=== PATIENT | male | born 1950 | race Caucasian/White ===

== ENCOUNTER 2020-11-30 08:54 | Outpatient (REF) | payer OTHER, SELFPAY ==
[2020-11-30 09:12] LABS: Hematocrit 43.2 % (42-52); Hemoglobin 14.6 g/dl (14.0-18.0); Mean Corpuscular HGB Conc 33.8 g/dl (31.0-36.0); Mean Corpuscular Volume 100.7 fL (80-98); Mean Platelet Volume 10.4 fL (9.4-12.4); Platelet Count 174 X10*3/uL (160-400); Red Blood Count 4.29 X10*6/uL (4.60-5.80); Red Cell Distribution Width 13.2 % (11.0-16.0); White Blood Count 6.8 X10*3/uL (4.8-10.8)
[2020-11-30 09:51] LABS: Alanine Aminotransferase 38 U/L (0-40); Albumin Level 4.6 g/dL (3.5-5.0); Alkaline Phosphatase 98 U/L (39-117); Anion Gap 13 (12-20); Aspartate Amino Transferase 32 U/L (5-37); Bilirubin Direct 0.2 mg/dL (0.0-0.5); Bilirubin Total 0.5 mg/dL (0.0-1.0); Blood Urea Nitrogen 24 mg/dL (9-16); C Reactive Protein 0.21 mg/dL (< or = 0.50); Calcium 9.5 mg/dL (8.4-10.2); Carbon Dioxide 29 mmol/L (22-29); Chloride 104 mmol/L (96-108); Cholesterol 170 mg/dL; Estimated Glomerular Filt Rate > 60; Glucose Random 108 mg/dL (60-115); HDL Cholesterol 61 mg/dL; LDL Cholesterol Calculated 94 mg/dl; Sodium 141 mmol/L (135-145); Total Protein 6.6 g/dL (6.5-8.0); Triglycerides 77 mg/dL
[2020-11-30 10:11] LABS: Thyroid Stimulating Hormone 2.53 uIU/mL (0.32-4.0)
[2020-11-30 10:14] LABS: Folate 9.6 ng/mL (> or = 4.0); Vitamin B12 437 pg/mL (200-900)
[2020-11-30 11:23] LABS: Glucose Urine UA NEG (NEG); Leukocyte Esterase Urine NEG (NEG); Nitrite Urine NEG (NEG); Specific Gravity - Urine 1.025 (1.005-1.025); Urine Blood NEG (NEG); Urine Ketones NEG (NEG); Urine Protein NEG (NEG-TRACE)
[2020-11-30 11:25] LABS: Appearance Urine CLEAR; Color Urine YELLOW
[2020-12-04 13:17] LABS: Vitamin D 25-OH, D2 <4 ng/mL; Vitamin D 25-OH, D3 54 ng/mL; Vitamin D 25-OH, Total 54 ng/mL (30-100)
== END 2020-11-30 08:55 | disposition home or self-care (01) ==
LOC: HO.LNP 08:54
PROVIDERS: Visit Provider Internal Medicine
DX: E78.01 Familial hypercholesterolemia (principal)
CPT/HCPCS: 80048; 80061; 80076; 81003; 82306; 82550; 82607; 82746; 84443; 85027; 86140

== ENCOUNTER 2020-12-23 07:45 | Outpatient (REF) | payer OTHER, SELFPAY ==
[2020-12-23 08:03] LABS: COVID-19 Test Negative (Negative)
== END 2020-12-23 07:46 | disposition home or self-care (01) ==
LOC: HO.EMPCOV 07:45
PROVIDERS: PCP Internal Medicine; Visit Provider Internal Medicine
DX: Z20.822 Contact with and (suspected) exposure to COVID-19 (principal)
CPT/HCPCS: 36415; 87635; C9803

== ENCOUNTER 2021-04-06 07:31 | Outpatient (REF) | payer OTHER, SELFPAY ==
[2021-04-06 07:50] LABS: COVID-19 Test Negative (Negative)
== END 2021-04-06 07:32 | disposition home or self-care (01) ==
LOC: HO.EMPCOV 07:31
PROVIDERS: Internal Medicine; Visit Provider Internal Medicine
DX: Z20.822 Contact with and (suspected) exposure to COVID-19 (principal)
CPT/HCPCS: 36415; 87635; C9803

== ENCOUNTER 2021-12-08 07:08 | Outpatient (REF) | payer OTHER, SELFPAY ==
[2021-12-08 07:39] LABS: Hematocrit 42.7 % (42.0-52.0); Mean Corpuscular HGB Conc 32.8 g/dl (31.0-36.0); Mean Corpuscular Hemoglobin 34.1 pg (27.0-33.0); Mean Corpuscular Volume 103.9 fL (80.0-98.0); Mean Platelet Volume 10.4 fL (9.4-12.4); Platelet Count 178 X10*3/uL (160-400); Red Blood Count 4.11 X10*6/uL (4.60-5.80); Red Cell Distribution Width 13.9 % (11.0-16.0); White Blood Count 6.3 X10*3/uL (4.8-10.8)
[2021-12-08 08:10] LABS: Alanine Aminotransferase 29 U/L (0-40); Albumin Level 4.3 g/dL (3.5-5.0); Alkaline Phosphatase 91 U/L (39-117); Anion Gap 11 (12-20); Aspartate Amino Transferase 27 U/L (5-37); Bilirubin Direct 0.2 mg/dL (0.0-0.5); Bilirubin Total 0.7 mg/dL (0.0-1.0); Blood Urea Nitrogen 29 mg/dL (9-16); C Reactive Protein 0.08 mg/dL (< or = 0.50); Calcium 9.9 mg/dL (8.4-10.2); Carbon Dioxide 28 mmol/L (22-29); Chloride 108 mmol/L (96-108); Cholesterol 204 mg/dL; Estimated Glomerular Filt Rate 52; Glucose Random 108 mg/dL (60-115); HDL Cholesterol 56 mg/dL; LDL Cholesterol Calculated 128 mg/dl; Potassium 4.4 mmol/L (3.3-5.1); Sodium 143 mmol/L (135-145); Total Protein 6.4 g/dL (6.5-8.0); Triglycerides 102 mg/dL
[2021-12-08 08:30] LABS: Prostate Specific Antigen Scr 1.27 ng/mL (<0.05-4.0); Thyroid Stimulating Hormone 1.95 uIU/mL (0.32-4.0)
[2021-12-08 08:41] LABS: Folate 11.4 ng/mL (> or = 4.0); Vitamin B12 369 pg/mL (200-900)
[2021-12-08 12:43] LABS: Appearance Urine CLEAR; Color Urine YELLOW; Glucose Urine UA NEG (NEG); Leukocyte Esterase Urine NEG (NEG); Nitrite Urine NEG (NEG); PH 5.5 (5.0-8.0); Specific Gravity - Urine >= 1.030 (1.005-1.025); Urine Blood NEG (NEG); Urine Ketones NEG (NEG); Urine Protein NEG (NEG-TRACE)
[2021-12-12 16:17] LABS: Vitamin D 25-OH, D2 <4 ng/mL; Vitamin D 25-OH, D3 42 ng/mL; Vitamin D 25-OH, Total 42 ng/mL (30-100)
== END 2021-12-08 07:09 | disposition home or self-care (01) ==
LOC: HO.LAB 07:08
PROVIDERS: PCP Internal Medicine; Visit Provider Internal Medicine
DX: E55.9 Vitamin D deficiency, unspecified (principal); E78.01 Familial hypercholesterolemia; I70.90 Unspecified atherosclerosis; I10 Essential (primary) hypertension
CPT/HCPCS: 36415; 80048; 80061; 80076; 81003; 82306; 82550; 82607; 82746; 84153; 84443; 85027; 86140

== ENCOUNTER 2022-07-05 10:25 | Outpatient (REF) | payer OTHER, BC, SELFPAY ==
[2022-07-05 11:05] LABS: Hematocrit 42.1 % (42.0-52.0); Hemoglobin 14.3 g/dl (14.0-18.0); Mean Corpuscular Hemoglobin 34.5 pg (27.0-33.0); Mean Corpuscular Volume 101.4 fL (80.0-98.0); Mean Platelet Volume 10.1 fL (9.4-12.4); Platelet Count 167 X10*3/uL (160-400); Red Blood Count 4.15 X10*6/uL (4.60-5.80); Red Cell Distribution Width 13.3 % (11.0-16.0); White Blood Count 6.1 X10*3/uL (4.8-10.8)
[2022-07-05 11:24] LABS: Alanine Aminotransferase 39 U/L (0-40); Albumin Level 4.5 g/dL (3.5-5.0); Alkaline Phosphatase 93 U/L (39-117); Anion Gap 15 (12-20); Aspartate Amino Transferase 34 U/L (5-37); Bilirubin Direct 0.3 mg/dL (0.0-0.5); Bilirubin Total 0.6 mg/dL (0.0-1.0); Blood Urea Nitrogen 17 mg/dL (9-16); Calcium 9.5 mg/dL (8.4-10.2); Carbon Dioxide 27 mmol/L (22-29); Chloride 101 mmol/L (96-108); Cholesterol 178 mg/dL; Estimated Glomerular Filt Rate > 60; Glucose Random 99 mg/dL (60-115); HDL Cholesterol 58 mg/dL; LDL Cholesterol Calculated 98 mg/dl; Potassium 4.6 mmol/L (3.3-5.1); Sodium 138 mmol/L (135-145); Total Protein 6.6 g/dL (6.5-8.0); Triglycerides 113 mg/dL
[2022-07-05 11:45] LABS: Thyroid Stimulating Hormone 1.22 uIU/mL (0.32-4.0)
[2022-07-05 12:05] LABS: Folate 12.4 ng/mL (> or = 4.0); Vitamin B12 1468 pg/mL (200-900)
== END 2022-07-05 10:26 | disposition home or self-care (01) ==
LOC: HO.LAB 10:25
PROVIDERS: PCP Internal Medicine; Visit Provider Internal Medicine
DX: Z01.818 Encounter for other preprocedural examination (principal)
CPT/HCPCS: 36415; 80048; 80061; 80076; 82607; 82746; 84443; 85027

== ENCOUNTER 2022-09-06 10:27 | Outpatient (REF) | payer OTHER, BC, SELFPAY | END 2022-09-06 10:28 | disposition home or self-care (01) | LOC: HO.HAP 10:27 | PROVIDERS: Visit Provider Internal Medicine | DX: Z13.89 Encounter for screening for other disorder (principal) ==

== ENCOUNTER 2022-09-08 09:35 | Outpatient (REF) | payer OTHER, BC, SELFPAY ==
--- NOTE | 2022-09-08 10:17 | MHC.AU.HFU ---
Hearing Instrument Follow-Up- Binaural Date of Visit: 09/08/22 Right Ear: Santos Judd V90-M SN: [id number] Color: Silver De León Repair Warranty: 08/22/2018 Battery Size: 312 Pulp Grinder And Blender: Size 2 slim tube Type of Mold: Large Open Dome Dispensed By: [facility] Date of Fittin06/01/2015 Left Ear:Santos Judd V90-M SN: [id number] Color: Silver De León Repair Warranty: 08/22/2018 Battery Size: 312 Pulp Grinder And Blender: Size 2 slim tube Type of Mold: Large Open Dome Dispensed By: [facility] Date of Fittin06/01/2015 Follow-Up Summary: Shashank dropped off his right hearing aid as the slim tube had broken. His hearing aid was cleaned and microphones were vacuumed. The slim tube and dome were replaced. A listening check demonstrated the hearing aid is in good working order. Recommendations: Hearing instrument maintenance in 6 months, or sooner if needed. Please contact our clinic with any questions or concerns. Diagnosis Code(s): Primary Diagnosis: H90.3 Bilateral Sensorineural Hearing Loss Signature: Provider: Kavin Olson, [facility]
== END 2022-09-08 09:36 | disposition home or self-care (01) ==
LOC: HO.HAP 09:35
PROVIDERS: Visit Provider Internal Medicine
DX: Z13.89 Encounter for screening for other disorder (principal)

== ENCOUNTER → 2022-09-19 08:28 | Outpatient (BNVA) | payer OTHER, BC, SELFPAY | PROVIDERS: PCP Internal Medicine; Referring Provider Internal Medicine; Visit Provider Internal Medicine Cardiovascular Disease | DX: I47.29 Other ventricular tachycardia (principal); Z95.2 Presence of prosthetic heart valve | CPT/HCPCS: 93005 ==

== ENCOUNTER → 2022-10-02 07:23 | Outpatient (REF) | payer OTHER, BC, SELFPAY ==
--- NOTE | 2022-10-02 07:31 | CA_ITS ---
Transthoracic Echocardiogram Patient (Last, First, Middle): Shashank Gruber M Gender: Male Date of : 1950 Age: 72 Procedure Date: 10/02/2022 Procedure Type: Transthoracic Echocardiogram Location: OP Height: 170.18 cm Weight: 92.53 kg BSA: 2.04 m2 Heart Rate: 45 bpm BP: 130 / 80 mmHg Family Support Specialist: BALJIT Referring MD: Ad Gallardo MD Educational Psychologist: Ad Gallardo MD Symptoms: Z95.2 - Presence of prosthetic heart valve Study Quality: Fair/Contrast ECG Rhythm: Bradycardia Conclusions: - 1. Normal LV systolic function with grade 2 diastolic dysfunction 2. Mildly dilated left atrium 3. Normally function bioprosthetic aortic valve with trivial aortic regurgitation 4. Atrial septal closure device noted without any evidence of shunting 5. Normal RV systolic pressure 6. No gross pericardial effusion Findings Procedure Information Contrast agent, definity, is being given per protocol without apparent complications. Left Ventricle Normal left ventricular size, thickness, and systolic function. The visually estimated ejection fraction is between 60-65%. There is paradoxical septal motion consistent with post-operative status. Spectral Doppler is indicative of a pseudonormal filling pattern. E/E prime ratio is >15, consistent with elevated filling pressures. Evidence suggests grade II (moderate) diastolic dysfunction. Right Ventricle Mildly increased right ventricular cavity size. There is moderately decreased right ventricular systolic function. There is a pacemaker wire seen in the right ventricle. Atria The left atrium is mildly dilated. There is no evidence of interatrial shunt. An atrial septal closure device is seen. The right atrium is mildly dilated. Aortic Valve A bioprosthetic aortic valve is present. The prosthetic aortic valve appears to be functioning normally. The aortic valve was not well visualized. The mean gradient is 5 mmHg. There is trace (trivial) aortic valve regurgitation. Mitral Valve There is mild anterior and posterior mitral leaflet thickening. There is trace mitral valve regurgitation. There is no mitral valve stenosis. Pulmonic Valve The pulmonic valve was not well visualized. Tricuspid Valve Likely normal tricuspid valve structure and function. There is trace tricuspid valve regurgitation. The right ventricular systolic pressure is normal. The right ventricular systolic pressure is 24 mmHg. Normal right atrial pressure. There is no evidence of pulmonary hypertension. Great Vessels All visible segments of the aorta are normal in size. The pulmonary artery was not well visualized. Venous The inferior vena cava is normal in size and collapses greater than 50% with inspiration. Pericardium/Pleural There is no evidence of pericardial effusion. Prior Study Comparison Changes noted compared to prior study dated: 10/04/2017. Atrial septal closure device noted Measurements 2D Linear Measurements IVSd: 1.03 0.6-0.9/0.6-1.0 cm LVIDd: 5.07 3.9-5.3/4.2-5.9 cm LVIDd Index: 2.49 2.4-3.2/2.2-3.1 cm/m2 LVIDs: 2.76 2.0-3.6 cm LVPWd: 1.00 0.7-1.1 cm LA Diam: 3.90 2.7-3.8/3.0-4.0 cm LAIDs Index: 1.91 1.5-2.3 cm/m2 LV Mass: 236.69 67-162/88-224 g LV Mass Index: 116.02 43-95/49-115 g/m2 LVOT Diam: 2.10 3.0+(-)1.3 cm 2D Systolic Function EF 4C: 61.10 >55% EF 2C: 70.90 >55% EF BiP: 65.00 >55% Mitral Valve MV Pk E: 1.13 MV PK A: 0.98 MV Decel Time: 309.00 E/A: 1.20 E'Lateral: 6.53 E'Medial: 6.53 E/E' Med: 17.30 E/E' Lat: 17.30 PHT: 91.00 MVA PHT: 2.42 Decel [place]: 3.66 Aortic Valve AoV Pk Kailash: 1.60 AoV Mn Kailash: 1.04 AoV VTI: 0.36 AoV Pk Grad: 10.00 Aov Mn Grad: 5.00 RIOS Cont.VTI: 1.90 LVOT LVOT Pk Kailash: 0.88 LVOT Mn Kailash: 0.58 LVOT VTI: 0.20 LVOT Pk Grad: 3.00 LVOT Mn Grad: 2.00 LVOT Diam: 2.10 LVOT Area: 3.46 Diastolic Function MV Pk E: 1.13 MV Pk A: 0.98 E/A: 1.20 E'Medial: 6.53 E/E' Med: 17.30 E' Laterial: 6.53 E/E' Lat: 17.30 Right Ventricle TAPSE (mm): 13.20 TVS' Kailash: 6.40 Tricuspid Valve TR Pk Kailash: 2.01 TR Pk Grad: 16.00 RA Press: 8.00 RVSP: 24.00 Great Vessels Aorta Sinus of Valsalva: 3.40 2.0-3.5 cm Ao Asc: 3.10 2.1-3.4 cm Pulmonary Valve PV Pk Kailash: 1.05 Peak PV Grad: 4.00 Updated in Other Vendor System with Status of Final Ad Gallardo MD electronically signed on 10/02/2022 4:58:14 PM with status of Final
== END ==
LOC: HO.CARD 07:23
PROVIDERS: PCP Internal Medicine; Visit Provider Internal Medicine Cardiovascular Disease
DX: Z95.2 Presence of prosthetic heart valve (principal)
CPT/HCPCS: 93306; Q9957

== ENCOUNTER 2023-07-24 10:30 | Outpatient (REF) | payer OTHER, BC, SELFPAY ==
--- NOTE | ~2023-07-24 | US_ITS ---
EXAMINATION: US EXTRACRANIAL CAROTID DUPLEX, BILATERAL CLINICAL INFORMATION: TIA COMPARISON: Carotid duplex on 05/27/2018 TECHNIQUE: Real-time ultrasound and Doppler techniques (integrating B-mode 2-D vascular images, Doppler spectral analysis and color-flow Doppler imaging) were utilized to interrogate the extracranial carotid arteries, the vertebral arteries and proximal subclavian arteries bilaterally. The degree of stenosis is determined by criteria similar to NASCET. FINDINGS: Right Side: 1. There is minimal atherosclerotic plaque seen in the bifurcation/proximal ICA region. 2. The common carotid artery PSV proximally is 57 cm/s and distally 65 cm/s. 3. The proximal internal carotid artery velocities are 68 cm/s systolic and 18 cm/s diastolic. 4. The proximal external carotid artery PSV is 60 cm/s. 5. The vertebral artery shows antegrade flow. 6. The subclavian artery waveforms are normal. Left Side: 1. There is no significant atherosclerotic plaque seen in the bifurcation/proximal ICA region. 2. The common carotid artery PSV proximally is 89 cm/s and distally 58 cm/s. 3. The proximal internal carotid artery velocities are 90 cm/s systolic and 32 cm/s diastolic. 4. The proximal external carotid artery PSV is 48 cm/s. 5. The vertebral artery shows antegrade flow. 6. The subclavian artery waveforms are normal. US/US carotid duplex BI IMPRESSION: 1. RIGHT: Minimal, non-hemodynamically significant stenosis of the proximal right internal carotid artery corresponding to a 0-49% stenosis by velocity criteria. 2. LEFT: Normal left internal carotid artery without atherosclerotic plaque or hemodynamically significant stenosis. 3. There is no change in the category severity of disease when compared to the previous study dated 05/27/2018.
== END 2023-07-24 10:31 | disposition home or self-care (01) ==
LOC: HO.US 10:30
PROVIDERS: Visit Provider Psychiatry & Neurology Neurology
DX: Z86.73 Personal history of transient ischemic attack (TIA), and cerebral infarction without residual deficits (principal)
CPT/HCPCS: 93880

== ENCOUNTER 2023-07-27 | Outpatient (REF) | payer OTHER, BC, SELFPAY ==
[2023-07-27 10:51] VITALS: BP 175/84; PULSE 47; RESP 16; TEMP 36.1; O2SAT 100
[2023-07-27 10:53] VITALS: BMI 32.1
[2023-07-27 11:50] VITALS: BP 162/78
[2023-07-27 11:54] VITALS: BP 161/74; PULSE 44; RESP 16; O2SAT 99
--- NOTE | 2023-07-27 14:41 | P.BOP_ITS ---
Brief Operative Note Date of Service: 07/27/23 Pre-op diagnosis: TIA Post-op diagnosis: same Procedure: Implantable loop recorder placement Implants: After obtaining informed consent patient was brought to the minor surgery suite. Patient was then laid on the table in the supine position. Patient's precordial area was then prepped and draped in a sterile fashion. Patient was then given 1% lidocaine with epinephrine intradermally and subcutaneously. A [employer] implantable loop recorder serial number [id number] was then implanted in the subcutaneous space using a Seldinger technique. Initial R-wave were noted to be very 0.07/0.08 although R-waves were very prominent with identified P-waves. Subsequently after couple of min is the R-waves did improve 0.13 and some to 0.26. Probably effect of the local lidocaine. Sensitive was readjusted. Minimal bleeding was noted. The wound was then closed with Steri- Strips and pressure dressing applied. Surgeon: Ad Gallardo MD Anesthesia: local Was an Green Building Design Specialist used for this Procedure?: No Estimated blood loss (mL): 1 Pathology: none sent Condition: stable Disposition: same day
== END 2023-07-27 00:01 | disposition home or self-care (01) ==
LOC: HO.MS
PROVIDERS: PCP Internal Medicine; Visit Provider Internal Medicine Cardiovascular Disease
PROC: (CPT 33285; principal; 2023-07-27 11:00)
DX: G45.9 Transient cerebral ischemic attack, unspecified (principal)
CPT/HCPCS: 33285; C1764

== ENCOUNTER → 2023-07-27 11:00 | Outpatient (BNV) | payer OTHER, BC, SELFPAY | PROVIDERS: PCP Internal Medicine; Visit Provider Internal Medicine Cardiovascular Disease | DX: G45.9 Transient cerebral ischemic attack, unspecified (principal) | CPT/HCPCS: 33285 ==

== ENCOUNTER 2023-07-31 08:18 | Outpatient (REF) | payer OTHER, BC, SELFPAY ==
[2023-07-31 09:23] LABS: Anion Gap 15 (12-20); Blood Urea Nitrogen 21 mg/dL (9-16); Calcium 10.2 mg/dL (8.4-10.2); Carbon Dioxide 25 mmol/L (22-29); Chloride 106 mmol/L (96-108); Cholesterol 169 mg/dL (<200); Estimated Glomerular Filt Rate 59; Glucose Fasting 92 mg/dL (60-99); HDL Cholesterol 54 mg/dL (>40); LDL Cholesterol Calculated 95 mg/dL (<100); Potassium 4.6 mmol/L (3.3-5.1); Sodium 141 mmol/L (135-145); Triglycerides 101 mg/dL (<150); Uric Acid 4.8 mg/dL (3.4-7.0)
[2023-07-31 09:34] LABS: TSH reflex Free T4 1.46 uIU/mL (0.32-4.0)
== END 2023-07-31 08:19 | disposition home or self-care (01) ==
LOC: HO.LAB 08:18
PROVIDERS: Visit Provider Internal Medicine
DX: M10.9 Gout, unspecified (principal); E89.0 Postprocedural hypothyroidism; I10 Essential (primary) hypertension; I25.10 Atherosclerotic heart disease of native coronary artery without angina pectoris; I70.90 Unspecified atherosclerosis
CPT/HCPCS: 36415; 80048; 80061; 84443; 84550

== ENCOUNTER 2023-08-02 15:45 | Outpatient (AMB) | payer OTHER, BC, SELFPAY ==
[2023-08-02 15:53] VITALS: BP 100/62; PULSE 51; BMI 31.4
--- NOTE | 2023-08-02 15:53 | MHC.OFFVIS ---
Intake Vital Signs 08/02/23 15:53 Height 5 ft 7 in Weight 200 lb 9.93 oz BMI 31.4 BP 100/62 Blood Pressure Location Lt brachial Position Sitting Pulse 51 Intake Visit Reasons: wound check after ILR Medtronic Intake Note: Follow-up Ilr Medtronic feeling good Edger Tailer Required: No Allergies Iodinated Contrast Media [IV Dye, Iodine Containing] Allergy (Severe, Verified 07/05/22 09:43) VASCULAR COLLAPSE and vascular spasm atorvastatin [ATORVASTATIN] Allergy (Unknown, Verified 07/05/22 09:43) VISUAL HALOS simvastatin [SIMVASTATIN] Allergy (Unknown, Verified 07/05/22 09:43) MYALGIA vancomycin [VANCOMYCIN] Allergy (Unknown, Verified 07/05/22 09:43) itching, rash and hives Medication List - Last Reconciled 08/02/23 by ANYA BergerC allopurinol 300 mg PO DAILY amoxicillin 500 mg PO TID aspirin 81 mg PO DAILY cholecalciferol (vitamin D3) 25 mcg PO DAILY dorzolamide-timolol 22.3-6.8 mg/mL 1 drp ophthalmic (eye) BID ezetimibe (Zetia) 10 mg PO DAILY latanoprost 0.005% 1 drp ophthalmic (eye) BEDTIME levothyroxine PO; metoprolol succinate ER 100 mg PO BID rosuvastatin 10 mg PO DAILY ticagrelor (Brilinta) 60 mg PO BID valsartan-hydrochlorothiazide 160-12.5 mg 1 tab PO DAILY vitamin J90-yttuc acid 1,000-400 mcg tabs sublingual HPI wound check after ILR Medtronic HPI Thalia Encarnacion is a 73-year-old male with past medical history of hypertension, bicuspid aortic valve status post AVR, ascending aorta replacement, PFO closure, Saint Shan single-chamber pacemaker who recently had an episode of decreased vision in his right eye. He underwent implanted loop recorder on 07/27/2023 to assess for AFib. He now presents for wound check. Today he reports he has been feeling well without any recurrent visual disturbances. He has no neurological concerns. ILR site has original dressing intact. Ecchymosis is noted around dressing edges. No significant discomfort or fevers reported. Remote monitor at bedside. Denies issues with chest discomfort, shortness of breath. Has generally good activity tolerance. Taking all meds as directed [facility] Medical History AV block Hypertension Surgical History History of aortic valve replacement History of appendectomy History of basal cell carcinoma excision History of permanent cardiac pacemaker placement History of thyroidectomy Status post ascending aortic replacement Status post percutaneous patent foramen ovale closure Social History Housing: House Alcohol intake: current Alcohol intake frequency: 0-2 drinks per day Patient Tobacco Use Status: Never used Tobacco e-Cigarette/Vaping Use: Never Used Second Hand Smoke Exposure: No service: No 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 occupational status: employed and 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 needs: No Hearing needs: Yes (hearind aides) Vision needs: Yes (glasses) Review of Systems Const All systems reviewed & are unremarkable except as noted in HPI and below Denies chills, Denies fatigue, Denies fever(s), Denies frequent falls, Denies weakness, Denies weight gain and Denies weight loss ENT Denies dizziness Card Denies chest pain, Denies leg edema, Denies lightheadedness, Denies palpitations, Denies dyspnea, Denies dyspnea on exertion, Denies orthopnea and Denies other (loss of consciousness) Resp Denies cough, Denies dyspnea and Denies dyspnea on exertion GI Denies hematochezia and Denies change in stool character Musc Denies abnormal gait, Denies muscle weakness, Denies numbness, Denies radiating pain into limb and Denies tingling Neuro Denies abnormal gait, Denies dizziness, Denies frequent falls, Denies numbness, Denies tingling and Denies weakness Endo Denies fatigue and Denies palpitations Physical Exam Vital Signs: Last Vital Signs Pulse 51 08/02/23 15:53 BP 100/62 08/02/23 15:53 BMI result Body Mass Index 31.4 Const General: cooperative, healthy appearing, comfortable, well developed, alert and awake Chest Other: ILR site with gauze dressing covered by Tegaderm. Gently removed. Steri-Strips present with dried blood underneath. Soaked with sterile saline and gently removed Steri-Strips. Small incision line fully intact, resolving ecchymosis noted distal to site. No drainage or inflammation noted. Chest palpation & inspection: normal inspection of the chest Resp Effort & Inspection: normal respiratory effort and able to speak in complete sentences Assessment & Plan Assessment & Plan (1) Implantable loop recorder present: Code(s): Z95.818 - Presence of other cardiac implants and grafts Plan: Possible TIA with recent episode of decreased vision in the right eye only lasting a few minutes and resolving. No other neurological deficits noted. No recurrent visual disturbances since that time. Possible TIA. He underwent a implanted Stewart loop recorder placement on with Dr. Gallardo. Dressing removed from site, Steri-Strips gently removed. Incision well approximated no signs of infection. Single Steri-Strips reapplied for wound security. Site care reviewed. Remote monitor at his bedside. Will follow his loop recorder remotely to assess for arrhythmia, AFib. (2) Visit for wound check: Code(s): Z51.89 - Encounter for other specified aftercare (3) Change in vision: Code(s): H53.9 - Unspecified visual disturbance (4) Cardiac pacemaker: Code(s): Z95.0 - Presence of cardiac pacemaker Plan: Saint Shan single-chamber pacemaker. VVI mode, low rate 40. Office interrogation done September 2022. Next office interrogation due September 2023. (5) History of aortic valve replacement: Comment: Aortic stenosis secondary to bicuspid aortic valve undergoing repair at age 14 at [facility]. Followed by in 1990 undergoing Saint Shan 23 mm aortic valve replacement at [facility] for stenosis. Surgery was complicated at that time with RV laceration, which had to be repaired. 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 Gallardo his primary hardware installer. He has office visit scheduled 09/20/2023. Will have him keep that appointment. (6) Status post ascending aortic replacement: Comment: Status post repair with a 28 mm graft for thoracic aortic aneurysm. 4.5 cm, repaired in 2013 Code(s): Z95.828 - Presence of other vascular implants and grafts Medications: Changed From rosuvastatin 20 mg PO DAILY 90 tabs 3RF To rosuvastatin 10 mg PO DAILY Coding Level of Care Code Est Pt Level 2 (52273) Diagnoses Implantable loop recorder present Z95.818 Visit for wound check Z51.89 Change in vision H53.9 Cardiac pacemaker Z95.0 History of aortic valve replacement Z95.2 Status post ascending aortic replacement Z95.828 Time Spent (min) 15
== END 2023-08-02 16:48 | disposition home or self-care (01) ==
PROVIDERS: PCP Internal Medicine; Visit Provider Nurse Practitioner Family
DX: Z95.818 Presence of other cardiac implants and grafts (principal); Z51.89 Encounter for other specified aftercare; H53.9 Unspecified visual disturbance; Z95.0 Presence of cardiac pacemaker; Z95.2 Presence of prosthetic heart valve; Z95.828 Presence of other vascular implants and grafts
CPT/HCPCS: 99212

== ENCOUNTER → 2023-08-02 15:45 | Outpatient (BNVA) | payer OTHER, BC, SELFPAY | PROVIDERS: PCP Internal Medicine; Visit Provider Nurse Practitioner Family ==

== ENCOUNTER → 2023-08-31 23:59 | Outpatient (BNV) | payer OTHER, BC, SELFPAY ==
--- NOTE | 2023-09-10 08:41 | MHC.OFFVIS ---
Intake Intake Visit Reasons: Remote ILR Check- Medtronic Allergies Iodinated Contrast Media [IV Dye, Iodine Containing] Allergy (Severe, Verified 07/05/22 09:43) VASCULAR COLLAPSE and vascular spasm atorvastatin [ATORVASTATIN] Allergy (Unknown, Verified 07/05/22 09:43) VISUAL HALOS simvastatin [SIMVASTATIN] Allergy (Unknown, Verified 07/05/22 09:43) MYALGIA vancomycin [VANCOMYCIN] Allergy (Unknown, Verified 07/05/22 09:43) itching, rash and hives [facility] Medical History AV block Hypertension Surgical History History of aortic valve replacement History of appendectomy History of basal cell carcinoma excision History of permanent cardiac pacemaker placement History of thyroidectomy Status post ascending aortic replacement Status post percutaneous patent foramen ovale closure Social History Housing: House Alcohol intake: current Alcohol intake frequency: 0-2 drinks per day Patient Tobacco Use Status: Never used Tobacco e-Cigarette/Vaping Use: Never Used Second Hand Smoke Exposure: No service: No 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 There were reported pause that appear to be artifactual. The presented strip shows normal sinus rhythm. There is no evidence of atrial fibrillation [id number] Cardiac Interrogation, subcut cardiac rhythm monitor Procedure code (CPT) selection complete Coding Level of Care Code Procedure Only CPT Codes Cardiac Device Check - Cardiac Device 16: [id number] Cardiac Interrogation, subcut cardiac rhythm monitor ([id number])
== END ==
PROVIDERS: PCP Internal Medicine; Visit Provider Internal Medicine Cardiovascular Disease
DX: I48.91 Unspecified atrial fibrillation (principal)
CPT/HCPCS: 93298

== ENCOUNTER 2023-09-18 10:21 | Outpatient (REF) | payer OTHER, BC, SELFPAY ==
[2023-09-18 11:27] LABS: Hematocrit 42.1 % (42.0-52.0); Hemoglobin 13.8 g/dl (14.0-18.0); Mean Corpuscular HGB Conc 32.8 g/dl (31.0-36.0); Mean Corpuscular Hemoglobin 33.5 pg (27.0-33.0); Mean Corpuscular Volume 102.2 fL (80.0-98.0); Mean Platelet Volume 10.8 fL (9.4-12.4); Platelet Count 209 X10*3/uL (160-400); Red Blood Count 4.12 X10*6/uL (4.60-5.80); Red Cell Distribution Width 13.2 % (11.0-16.0); White Blood Count 7.8 X10*3/uL (4.8-10.8)
[2023-09-18 12:02] LABS: Cholesterol 123 mg/dL (<200); HDL Cholesterol 44 mg/dL (>40); LDL Cholesterol Calculated 63 mg/dL (<100); Triglycerides 82 mg/dL (<150)
[2023-09-18 12:05] LABS: Erythrocyte Sedimentation Rate 13 MM/HR (0-15)
[2023-09-20 16:08] LABS: CRP High Sensitivity 0.5 mg/L
== END 2023-09-18 10:22 | disposition home or self-care (01) ==
LOC: HO.LAB 10:21
PROVIDERS: PCP Internal Medicine; Visit Provider Internal Medicine
DX: D75.89 Other specified diseases of blood and blood-forming organs (principal); E78.00 Pure hypercholesterolemia, unspecified
CPT/HCPCS: 36415; 80061; 85027; 85652; 86141

== ENCOUNTER 2023-09-20 08:14 | Outpatient (AMB) | payer BC, SELFPAY ==
[2023-09-20 08:20] VITALS: BP 120/82; PULSE 52; BMI 31.1
--- NOTE | 2023-09-20 08:20 | A.OFFVIS_ITS ---
Intake Vital Signs 09/20/23 08:20 Height 5 ft 7 in Weight 198 lb 6.656 oz BMI 31.1 BP 120/82 Blood Pressure Location Lt brachial Position Sitting Pulse 52 Intake Visit Reasons: 1 yr f/up Intake Note: 1 year follow-up with ekg and medtronic check and st shan check feeling good Selling Underwriter Required: No Allergies Iodinated Contrast Media [IV Dye, Iodine Containing] Allergy (Severe, Verified 07/05/22 09:43) VASCULAR COLLAPSE and vascular spasm atorvastatin [ATORVASTATIN] Allergy (Unknown, Verified 07/05/22 09:43) VISUAL HALOS simvastatin [SIMVASTATIN] Allergy (Unknown, Verified 07/05/22 09:43) MYALGIA vancomycin [VANCOMYCIN] Allergy (Unknown, Verified 07/05/22 09:43) itching, rash and hives Medication List - Last Reconciled 09/20/23 by Ad Gallardo MD allopurinol 300 mg PO DAILY amoxicillin 500 mg PO TID aspirin 81 mg PO DAILY cholecalciferol (vitamin D3) 25 mcg PO DAILY dorzolamide-timolol 22.3-6.8 mg/mL 1 drp ophthalmic (eye) BID ezetimibe (Zetia) 10 mg PO DAILY latanoprost 0.005% 1 drp ophthalmic (eye) BEDTIME levothyroxine PO; metoprolol succinate ER 100 mg PO BID rosuvastatin 10 mg PO DAILY ticagrelor (Brilinta) 60 mg PO BID valsartan-hydrochlorothiazide 160-12.5 mg 1 tab PO DAILY vitamin G49-cywgh acid 1,000-400 mcg tabs sublingual HPI HPI Comments History of Present Illness Details Shashank comes for follow-up. He underwent a Medtronic implantable loop recorder placement for transient visual symptoms. Since then he has seen operator/assistant foreman and there is a suspicion for ophthalmic migraine. He has also seen Neurology. His carotid duplex suggest mild atherosclerotic plaque. Given his diffuse atherosclerotic disease likelihood of aortic atherosclerosis is high as well. There is also likelihood of atrial fibrillation. He has a single- chamber pacer device. He has currently been taking his Brilinta only once a day due to ecchymosis. He had reduces Crestor due to muscle aches but on Zetia his current LDL is well optimized at 63 mg/dL. [facility] Medical History Blindness, sudden AV block Hypertension Surgical History History of basal cell carcinoma excision History of appendectomy History of permanent cardiac pacemaker placement History of thyroidectomy Status post percutaneous patent foramen ovale closure Status post ascending aortic replacement History of aortic valve replacement Social History Housing: House Alcohol intake: current Alcohol intake frequency: 0-2 drinks per day Patient Tobacco Use Status: Never used Tobacco e-Cigarette/Vaping Use: Never Used Second Hand Smoke Exposure: No service: No 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 occupational status: employed and 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 needs: No Hearing needs: Yes (hearind aides) Vision needs: Yes (glasses) Review of Systems Const Denies chills, Denies fatigue, Denies fever(s), Denies frequent falls, Denies weakness, Denies weight gain and Denies weight loss ENT Denies dizziness Card Denies chest pain, Denies leg edema, Denies lightheadedness, Denies palpitations, Denies dyspnea, Denies dyspnea on exertion, Denies orthopnea and Denies other (loss of consciousness) Resp Denies cough, Denies dyspnea and Denies dyspnea on exertion GI Denies hematochezia and Denies change in stool character Musc Denies abnormal gait, Denies muscle weakness, Denies numbness, Denies radiating pain into limb and Denies tingling Neuro Denies abnormal gait, Denies dizziness, Denies frequent falls, Denies numbness, Denies tingling and Denies weakness Endo Denies fatigue and Denies palpitations Physical Exam Vital Signs: Last Vital Signs Pulse 52 09/20/23 08:20 BP 120/82 09/20/23 08:20 BMI result Body Mass Index 31.1 Const General: cooperative, comfortable, no acute distress, alert and awake Nutritional Appearance: obese Orientation/consciousness: patient oriented x3 Limitations: no limitations Neck Neck: Yes trachea midline, Yes supple and Yes no JVD Carotids: normal carotid upstroke and no bruits Resp Effort & Inspection: normal respiratory effort Auscultation: clear to auscultation bilaterally Cardio Jugular venous distension: no JVD Palpation: normal PMI Rate: regular rate Rhythm: regular rhythm Heart sounds: S1 normal heart sound present, S2 normal heart sound present, no click, no gallops and Murmur heart sound present systolic early, decrescendo and crescendo GI Auscultation: normal bowel sounds Skin General skin exam: no rashes or lesions noted Neuro General: patient oriented x3 and no focal motor deficits Extrem General: Yes no clubbing, cyanosis or edema Psych Appearance: grossly normal Office Procedures Cardiac Device Check Cardiac Device Check Details: Medtronic implantable loop recorder in place. Battery status is excellent. Measured R-waves at 0.07 mV although so episodes of atrial fibrillation noted. Presenting telemetry shows good P waves and QRS complex. [id number]-[id number] Device Interrogation, subcut cardiac rhythm monitor Procedure code (CPT) selection complete Cardiac Device Check Cardiac Device Check Details: Single-chamber Saint Shan pacemaker in place. Programmed in VVI at 40 beats per minute. Minimal ventricular pacing. Ventricular pacing thresholds adequate. Ventricular sensing is adequate. Pacing lead impedance is stable. Battery life is excellent at about 12 years [id number]-CE Cardiac Device Check, leadless/single lead pacemaker Procedure code (CPT) selection complete EKG Details: EKG shows sinus bradycardia with right bundle-branch block with QS pattern in lead V1 V2 40416-Ghiumpwaeyjnpcgxt, Complete Assessment & Plan Assessment & Plan (1) Blindness, sudden: Code(s): H53.139 - Sudden visual loss, unspecified eye Plan: Sudden reduction in vision question atherosclerotic worse is cardioembolic. He is currently on dual antiplatelet therapy and importance of taking Brilinta twice a day was discussed. Has the implantable recorder in place with no evidence of atrial fibrillation so far although he is at risk for the same that would change therapy. Continue aggressive risk factor modification, see below. Will continue monitor remotely as well as in the clinic every 6 months. (2) History of aortic valve replacement: Comment: Aortic stenosis secondary to bicuspid aortic valve undergoing repair at age 14 at [facility]. Followed by in 1990 undergoing Saint Shan 23 mm aortic valve replacement at [facility] for stenosis. Surgery was complicated at that time with RV laceration, which had to be repaired. 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 SBE prophylaxis as per ACC/aha guidelines. Will monitor by echocardiogram on annual basis. (3) Cardiac pacemaker: Code(s): Z95.0 - Presence of cardiac pacemaker Plan: Single-chamber cardiac pacemaker in-situ, working well. Patient has minimal use of the pacemaker in the ventricle at this point time. Will continue monitor remotely as well as in the clinic in 6 months time. (4) ASVD (arteriosclerotic vascular disease): Code(s): I70.90 - Unspecified atherosclerosis Plan: Diffuse atherosclerotic disease including carotid disease as well as aortic disease. Currently on dual antiplatelet therapy given his transient visual symptoms. Likely his visual symptoms could be vascular in origin and/or related to ophthalmic migraine. This is unclear. Will continue monitor clinically. Continue dual antiplatelet therapy for a year at least if he has no further events may cut down to aspirin therapy only. Continue aggressive vascular risk factor modification. LDL is finally well optimized on dual therapy and is tolerating current 10 mg of Crestor. Lifestyle modification was discussed. Blood pressure is currently well optimized. He is status post PFO closure. Will follow up in the clinic in 6 months time, sooner p.r.n.. Thank you for allowing me to partake in his care Medications: Changed From rosuvastatin 20 mg PO DAILY 90 tabs 3RF To rosuvastatin 10 mg PO DAILY Coding Level of Care Code Est Pt Level 4 (20646) Diagnoses Blindness, sudden H53.139 History of aortic valve replacement Z95.2 Cardiac pacemaker Z95.0 ASVD (arteriosclerotic vascular disease) I70.90 CPT Codes Cardiac Device Check - Cardiac Device 11: 14267-Kpkcmux Device Interrogation, subcut cardiac rhythm monitor ([id number]) Cardiac Device Check - Cardiac Device 1: 43655-HO Cardiac Device Check, leadless/single lead pacemaker ([id number]) EKG - CPT: 27555-Chfdvvfihvvpjevbn, Complete ([id number])
== END 2023-09-20 08:59 | disposition home or self-care (01) ==
PROVIDERS: Visit Provider Internal Medicine Cardiovascular Disease
DX: H53.139 Sudden visual loss, unspecified eye (principal); I70.90 Unspecified atherosclerosis; I44.30 Unspecified atrioventricular block; Z95.0 Presence of cardiac pacemaker; Z95.2 Presence of prosthetic heart valve
CPT/HCPCS: 93279; 93291; 99214

== ENCOUNTER → 2023-09-20 08:14 | Outpatient (BNVA) | payer BC, SELFPAY | PROVIDERS: Visit Provider Internal Medicine Cardiovascular Disease | DX: I45.10 Unspecified right bundle-branch block (principal); I70.90 Unspecified atherosclerosis; I10 Essential (primary) hypertension; H53.139 Sudden visual loss, unspecified eye; Z95.2 Presence of prosthetic heart valve; Z45.018 Encounter for adjustment and management of other part of cardiac pacemaker | CPT/HCPCS: 93005 ==

== ENCOUNTER → 2023-10-05 23:59 | Outpatient (BNV) | payer OTHER, BC, SELFPAY ==
--- NOTE | 2023-10-05 13:06 | A.OFFVIS_ITS ---
Intake Intake Visit Reasons: Remote ILR Check- Medtronic Allergies Iodinated Contrast Media [IV Dye, Iodine Containing] Allergy (Severe, Verified 07/05/22 09:43) VASCULAR COLLAPSE and vascular spasm atorvastatin [ATORVASTATIN] Allergy (Unknown, Verified 07/05/22 09:43) VISUAL HALOS simvastatin [SIMVASTATIN] Allergy (Unknown, Verified 07/05/22 09:43) MYALGIA vancomycin [VANCOMYCIN] Allergy (Unknown, Verified 07/05/22 09:43) itching, rash and hives [facility] Medical History Blindness, sudden AV block Hypertension Surgical History History of basal cell carcinoma excision History of appendectomy History of permanent cardiac pacemaker placement History of thyroidectomy Status post percutaneous patent foramen ovale closure Status post ascending aortic replacement History of aortic valve replacement Social History Housing: House Alcohol intake: current Alcohol intake frequency: 0-2 drinks per day Patient Tobacco Use Status: Never used Tobacco e-Cigarette/Vaping Use: Never Used Second Hand Smoke Exposure: No service: No 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 No episodes of atrial fibrillation noted [id number] Cardiac Interrogation, subcut cardiac rhythm monitor Procedure code (CPT) selection complete Coding Level of Care Code Procedure Only CPT Codes Cardiac Device Check - Cardiac Device 16: 47167-Uayfda Cardiac Interrogation, subcut cardiac rhythm monitor ([id number])
== END ==
PROVIDERS: PCP Internal Medicine; Visit Provider Internal Medicine Cardiovascular Disease
DX: I44.30 Unspecified atrioventricular block (principal); Z95.818 Presence of other cardiac implants and grafts
CPT/HCPCS: 93298

== ENCOUNTER 2023-10-18 08:11 | Outpatient (AMB) | payer BC, SELFPAY ==
--- NOTE | 2023-10-18 08:16 | MHC.PC.OV ---
Vital Signs 10/18/23 08:17 Height 5 ft 7 in Weight 197 lb BMI 30.9 BP 98/50 L Blood Pressure Location Lt brachial Position Sitting Pulse 54 Pulse Source Pulse Oximeter Pulse Oximetry (%) 99 Oxygen Delivery Method Room Air Intake Visit Reasons: temporary blindness Intake Note: Patient here for raynauds phenomenon, right side low back pain in to the back of right thigh, mild anemia Wine Fermenter Required: No Accompanied by: Self / Same As Patient Allergies Iodinated Contrast Media [IV Dye, Iodine Containing] Allergy (Severe, Verified 10/18/23 12:58) VASCULAR COLLAPSE and vascular spasm atorvastatin [ATORVASTATIN] Allergy (Unknown, Verified 10/18/23 12:58) VISUAL HALOS simvastatin [SIMVASTATIN] Allergy (Unknown, Verified 10/18/23 12:58) MYALGIA vancomycin [VANCOMYCIN] Allergy (Unknown, Verified 10/18/23 12:58) itching, rash and hives Medication List - Last Reconciled 10/18/23 by Anthony Hewitt MD allopurinol 300 mg PO DAILY aspirin 81 mg PO DAILY celecoxib 200 mg PO DAILY cholecalciferol (vitamin D3) 25 mcg PO DAILY dorzolamide-timolol 22.3-6.8 mg/mL 1 drp ophthalmic (eye) BID ezetimibe (Zetia) 10 mg PO DAILY latanoprost 0.005% 1 drp ophthalmic (eye) BEDTIME levothyroxine PO; metoprolol succinate ER 100 mg PO BID rosuvastatin 10 mg PO DAILY ticagrelor (Brilinta) 60 mg PO BID valsartan-hydrochlorothiazide 160-12.5 mg 1 tab PO DAILY vitamin X73-ppwcs acid 1,000-400 mcg tabs sublingual Tobacco use date assessed: 10/18/23 Fall risk assessment: No Falls in past year Last assessed Fall Risk: 10/18/23 Dental Screening Dental Screen Date: 10/18/23 Did you have a dental visit in the last 12 months?: Yes Did you have a dental problem in the last 6 months where you did not have access to dental care?: No Was dental information given to patient?: Patient has dentist HPI temporary blindness HPI Details 73-year-old male presents to the office to discuss his chronic medical conditions. 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 Patient is had transient loss of vision in the right eye. The 1st time it happened was 5 years ago. A JASON showed a patent PFO. The PFO was closed and patient has had no subsequent symptoms till the present 1. The transient loss of vision occurred a month ago and it was brief. Patient was seen by a neurologist who ordered a CTA which was unremarkable. He later saw his grain mill products inspector and has a loop monitor put in. No rhythm disturbance was seen. Patient was put on Brilinta 60 mg twice a day. He is unable to tolerate the twice a day dosage and develops large ecchymosis. He has reduced the medication to once a day. Patient is also started developing symptoms of Raynaud's phenomena. He is experiencing blanching and pain at the tips of his fingers on exposure to cold. Also complaining of nonspecific joint pains. ESR and CRP were low. Patient is also complaining of pain in the area just below the right gluteal area. When he was taking Coumadin many years ago, he had developed a large hematoma in the pyriformis that was compressing the sciatic nerve. [facility] Medical History (Updated 10/18/23 @ 13:12 by Anthony Hewitt MD) Raynauds phenomenon Blindness, sudden AV block Hypertension Surgical History History of surgery History of basal cell carcinoma excision History of appendectomy History of permanent cardiac pacemaker placement History of thyroidectomy Status post percutaneous patent foramen ovale closure Status post ascending aortic replacement History of aortic valve replacement Social History Housing: House Alcohol intake: current Alcohol intake frequency: 0-2 drinks per day Patient Tobacco Use Status: Never used Tobacco e-Cigarette/Vaping Use: Never Used Second Hand Smoke Exposure: No service: No 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 Depression Screening Interpretation: Negative Depression Screening Done: Yes Source: Developed by Drs. Gurjit Ledezma, Sara Christianson, Enrique Solano and colleagues, with an educational diego from [employer]. Thrive Questionnaire Date Thrive assessed: 12/28/21 Currently or been in a relationship where the following occur: no concerns reported WARREN-7 AMB Questionnaire WARREN-7 Date WARREN - 7 assessed: 12/28/21 Source: Developed by Drs. Gurjit Ledezma, Sara Christianson, Enrique Solano and colleagues, with an educational diego from [employer]. Physical exam (Primary Care) Vital Signs: Last Vital Signs Pulse 54 10/18/23 08:17 BP 98/50 L 10/18/23 08:17 Pulse Ox 99 10/18/23 08:17 Oxygen Delivery Method Room Air 10/18/23 08:17 Care Plan Goal for BP management: Low BP noted. BMI result Body Mass Index 30.9 Tobacco/Smoking Status: Tobacco use Status Tobacco use date assessed 10/18/23 10/18/23 08:25 Patient Tobacco Use Status Never used Tobacco 10/18/23 08:25 e-Cigarette/Vaping Use Never Used 10/18/23 08:25 Depression Screening Interpretation: Negative Thrive Assessment: Date of Thrive Assessment Date Thrive assessed 12/28/21 10/18/23 08:25 Currently or been in a relationship where the following occur: no concerns reported Advance Care Planning discussion: Exists, not on file Date of discussion: 10/18/23 Who was present: Patient Forms completed: Health Care Proxy and Living will Const General: cooperative and healthy appearing Nutritional Appearance: well nourished Orientation/consciousness: patient oriented x3 Limitations: no limitations HENMT Head: Yes normal to inspection Eyes General: appearance normal, both eyes and all related structures Neck Neck: Yes normal visual inspection Chest Chest palpation & inspection: normal palpation of entire chest wall Resp Effort & Inspection: normal respiratory effort Neuro General: patient oriented x3 Assessment and Plan Assessment & Plan (1) Hypertension: Code(s): I10 - Essential (primary) hypertension Plan: Will discuss with grain mill products inspector and hold the evening dose of metoprolol. (2) History of aortic valve replacement: Comment: Aortic stenosis secondary to bicuspid aortic valve undergoing repair at age 14 at [facility]. Followed by in 1990 undergoing Saint Shan 23 mm aortic valve replacement at [facility] for stenosis. Surgery was complicated at that time with RV laceration, which had to be repaired. 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 (3) Amaurosis fugax of right eye: Code(s): G45.3 - Amaurosis fugax Plan: Will follow up on the results of the loop recorder. Will discuss with the grain mill products inspector and inform him that patient is taking Brilinta at 60 mg once a day. (4) Familial hypercholesteremia: Code(s): E78.01 - Familial hypercholesterolemia Plan: LDL is in range. Continue current medications. (5) Raynauds phenomenon: Code(s): I73.00 - Raynaud's syndrome without gangrene Plan: Patient is experiencing symptoms consistent with Raynaud's phenomenon. However due to his low blood pressure nifedipine will not be started. I have advised him to avoid exposure to extreme cold. Coding Level of Care Code Est Pt Level 4 (51679) Diagnoses Hypertension I10 History of aortic valve replacement Z95.2 Amaurosis fugax of right eye G45.3 Familial hypercholesteremia E78.01 Raynauds phenomenon I73.00 Additional Codes Vital Signs *Quality* - Advance Care Planning discussion: Exists, not on file ([id number])
[2023-10-18 08:17] VITALS: BP 98/50; PULSE 54; O2SAT 99; BMI 30.9
== END 2023-10-18 09:49 | disposition home or self-care (01) ==
PROVIDERS: PCP Internal Medicine; Visit Provider Internal Medicine
DX: I10 Essential (primary) hypertension (principal); Z95.2 Presence of prosthetic heart valve; G45.3 Amaurosis fugax; E78.01 Familial hypercholesterolemia; I73.00 Raynaud's syndrome without gangrene; Z00.00 Encounter for general adult medical examination without abnormal findings
CPT/HCPCS: 1123F; 99214

== ENCOUNTER → 2023-11-09 23:59 | Outpatient (BNV) | payer BC, SELFPAY ==
--- NOTE | 2023-11-20 08:40 | A.OFFVIS_ITS ---
Intake Intake Visit Reasons: Remote ILR Check- Medtronic Allergies Iodinated Contrast Media [IV Dye, Iodine Containing] Allergy (Severe, Verified 10/18/23 12:58) VASCULAR COLLAPSE and vascular spasm atorvastatin [ATORVASTATIN] Allergy (Unknown, Verified 10/18/23 12:58) VISUAL HALOS simvastatin [SIMVASTATIN] Allergy (Unknown, Verified 10/18/23 12:58) MYALGIA vancomycin [VANCOMYCIN] Allergy (Unknown, Verified 10/18/23 12:58) itching, rash and hives COUNTS INCLUDE 234 BEDS AT THE [facility] Medical History (Updated 10/18/23 @ 13:12 by Anthony Hewitt MD) Raynauds phenomenon Blindness, sudden AV block Hypertension Surgical History History of surgery History of basal cell carcinoma excision History of appendectomy History of permanent cardiac pacemaker placement History of thyroidectomy Status post percutaneous patent foramen ovale closure Status post ascending aortic replacement History of aortic valve replacement Social History Housing: House Alcohol intake: current Alcohol intake frequency: 0-2 drinks per day Patient Tobacco Use Status: Never used Tobacco e-Cigarette/Vaping Use: Never Used Second Hand Smoke Exposure: No service: No 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 No arrhythmias detected [id number] Cardiac Interrogation, subcut cardiac rhythm monitor Procedure code (CPT) selection complete Assessment & Plan Assessment & Plan (1) Implantable loop recorder present: Code(s): Z95.818 - Presence of other cardiac implants and grafts Plan: See above Coding Level of Care Code Procedure Only Diagnoses Implantable loop recorder present Z95.818 CPT Codes Cardiac Device Check - Cardiac Device 16: 48987-Obbuzm Cardiac Interrogation, subcut cardiac rhythm monitor ([id number])
== END ==
PROVIDERS: PCP Internal Medicine; Visit Provider Internal Medicine Cardiovascular Disease
DX: I44.30 Unspecified atrioventricular block (principal); Z95.818 Presence of other cardiac implants and grafts
CPT/HCPCS: 93298

== ENCOUNTER → 2023-12-14 23:59 | Outpatient (BNV) | payer BC, SELFPAY ==
--- NOTE | 2023-12-17 17:55 | A.OFFVIS_ITS ---
Intake Intake Visit Reasons: Remote ILR Check- Medtronic Allergies Iodinated Contrast Media [IV Dye, Iodine Containing] Allergy (Severe, Verified 10/18/23 12:58) VASCULAR COLLAPSE and vascular spasm atorvastatin [ATORVASTATIN] Allergy (Unknown, Verified 10/18/23 12:58) VISUAL HALOS simvastatin [SIMVASTATIN] Allergy (Unknown, Verified 10/18/23 12:58) MYALGIA vancomycin [VANCOMYCIN] Allergy (Unknown, Verified 10/18/23 12:58) itching, rash and hives [facility] Medical History (Updated 10/18/23 @ 13:12 by Anthony Hewitt MD) Raynauds phenomenon Blindness, sudden AV block Hypertension Surgical History History of surgery History of basal cell carcinoma excision History of appendectomy History of permanent cardiac pacemaker placement History of thyroidectomy Status post percutaneous patent foramen ovale closure Status post ascending aortic replacement History of aortic valve replacement Social History Housing: House Alcohol intake: current Alcohol intake frequency: 0-2 drinks per day Patient Tobacco Use Status: Never used Tobacco e-Cigarette/Vaping Use: Never Used Second Hand Smoke Exposure: No service: No 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 No pauses or AFib noted [id number] Cardiac Interrogation, subcut cardiac rhythm monitor Procedure code (CPT) selection complete Assessment & Plan Assessment & Plan (1) Implantable loop recorder present: Code(s): Z95.818 - Presence of other cardiac implants and grafts Plan: See above Coding Level of Care Code Procedure Only Diagnoses Implantable loop recorder present Z95.818 CPT Codes Cardiac Device Check - Cardiac Device 16: [id number] Cardiac Interrogation, subcut cardiac rhythm monitor ([id number])
== END ==
PROVIDERS: PCP Internal Medicine; Visit Provider Internal Medicine Cardiovascular Disease
DX: I44.30 Unspecified atrioventricular block (principal); Z95.818 Presence of other cardiac implants and grafts
CPT/HCPCS: 93298

== ENCOUNTER → 2024-01-18 23:59 | Outpatient (BNV) | payer BC, SELFPAY ==
--- NOTE | 2024-01-21 08:33 | MHC.OFFVIS ---
Intake Intake Visit Reasons: Remote ILR Check- [employer] Allergies Iodinated Contrast Media [IV Dye, Iodine Containing] Allergy (Severe, Verified 10/18/23 12:58) VASCULAR COLLAPSE and vascular spasm atorvastatin [ATORVASTATIN] Allergy (Unknown, Verified 10/18/23 12:58) VISUAL HALOS simvastatin [SIMVASTATIN] Allergy (Unknown, Verified 10/18/23 12:58) MYALGIA vancomycin [VANCOMYCIN] Allergy (Unknown, Verified 10/18/23 12:58) itching, rash and hives [facility] Medical History (Updated 10/18/23 @ 13:12 by Anthony Hewitt MD) Raynauds phenomenon Blindness, sudden AV block Hypertension Surgical History History of surgery History of basal cell carcinoma excision History of appendectomy History of permanent cardiac pacemaker placement History of thyroidectomy Status post percutaneous patent foramen ovale closure Status post ascending aortic replacement History of aortic valve replacement Social History Housing: House Alcohol intake: current Alcohol intake frequency: 0-2 drinks per day Patient Tobacco Use Status: Never used Tobacco e-Cigarette/Vaping Use: Never Used Second Hand Smoke Exposure: No service: No Current occupational status: employed and 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 No episodes of atrial fibrillation noted [id number] Cardiac Interrogation, subcut cardiac rhythm monitor Procedure code (CPT) selection complete Assessment & Plan Assessment & Plan (1) Implantable loop recorder present: Code(s): Z95.818 - Presence of other cardiac implants and grafts Plan: See above Coding Level of Care Code Procedure Only Diagnoses Implantable loop recorder present Z95.818 CPT Codes Cardiac Device Check - Cardiac Device 16: [id number] Cardiac Interrogation, subcut cardiac rhythm monitor ([id number])
== END ==
PROVIDERS: PCP Internal Medicine; Visit Provider Internal Medicine Cardiovascular Disease
DX: I47.29 Other ventricular tachycardia (principal); Z95.818 Presence of other cardiac implants and grafts
CPT/HCPCS: 93298

== ENCOUNTER 2024-02-21 12:41 | Outpatient (AMB) | payer BC, SELFPAY ==
--- NOTE | 2024-02-21 12:44 | MHC.PC.OV ---
Vital Signs 02/21/24 12:46 Height 5 ft 7 in Weight 198 lb 8 oz BMI 31.1 BP 124/78 Blood Pressure Location Lt brachial Position Sitting Pulse 47 L Pulse Source Pulse Oximeter Pulse Oximetry (%) 99 Oxygen Delivery Method Room Air Intake Visit Reasons: Annual Exam Intake Note: Patient is here today for a physical and med review Investor Relations Specialist Required: No Rope Rider: Not Required per policy Accompanied by: Self / Same As Patient Allergies Iodinated Contrast Media [IV Dye, Iodine Containing] Allergy (Severe, Verified 02/22/24 16:33) VASCULAR COLLAPSE and vascular spasm atorvastatin [ATORVASTATIN] Allergy (Unknown, Verified 02/22/24 16:33) VISUAL HALOS simvastatin [SIMVASTATIN] Allergy (Unknown, Verified 02/22/24 16:33) MYALGIA vancomycin [VANCOMYCIN] Allergy (Unknown, Verified 02/22/24 16:33) itching, rash and hives clopidogrel [From Plavix] Adverse Reaction (Intermediate, Verified 02/22/24 16:33) Diarrhea Medication List - Last Reconciled 02/22/24 by Anthony Hewitt MD allopurinol 300 mg PO DAILY aspirin 81 mg PO DAILY celecoxib 200 mg PO DAILY cholecalciferol (vitamin D3) 25 mcg PO DAILY dorzolamide-timolol 22.3-6.8 mg/mL 1 drp ophthalmic (eye) BID ezetimibe (Zetia) 10 mg PO DAILY latanoprost 0.005% 1 drp ophthalmic (eye) BEDTIME levothyroxine PO; metoprolol succinate ER 100 mg PO BID rosuvastatin 10 mg PO DAILY ticagrelor (Brilinta) 60 mg PO BID valsartan-hydrochlorothiazide 160-12.5 mg 1 tab PO DAILY vitamin [id number] acid 1,000-400 mcg tabs sublingual Tobacco use date assessed: 02/21/24 Fall risk assessment: No Falls in past year Last assessed Fall Risk: 02/21/24 Dental Screening Dental Screen Date: 02/21/24 Did you have a dental visit in the last 12 months?: Yes Did you have a dental problem in the last 6 months where you did not have access to dental care?: No Was dental information given to patient?: Patient has dentist HPI Annual Exam HPI Details 74-year-old male presents to the office requesting an annual physical Since last office visit, patient has moved back to [facility]. He was unable to tolerate Plavix due to severe diarrhea. He is now taking Brilinta 60 mg twice a day. On his own, he had reduced the dosage of the metoprolol. Patient started experiencing a lot of PVCs and he is now back to taking 100 mg in the morning and 50 mg in the evening. In addition, patient is experiencing sharp pain on moving his fingers, especially in the left hand. They get stuck in a flexed position. He is also complaining of a slow urinary stream. For insurance requirements, patient is requesting a Cologuard test. Patient drinks 3-4 glasses of wine a week. [facility] Medical History Benign prostate hyperplasia Trigger finger of all digits of left hand Raynauds phenomenon Blindness, sudden AV block Hypertension Surgical History History of surgery History of basal cell carcinoma excision History of appendectomy History of permanent cardiac pacemaker placement History of thyroidectomy Status post percutaneous patent foramen ovale closure Status post ascending aortic replacement History of aortic valve replacement Social History Housing: House Alcohol intake: current Alcohol intake frequency: a few times a week Alcohol type: beer Patient Tobacco Use Status: Never used Tobacco e-Cigarette/Vaping Use: Never Used Second Hand Smoke Exposure: No service: No 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 1. Little interest or pleasure in doing things: not at all 2. Feeling down, depressed, or hopeless: not at all 3. Trouble falling or staying asleep, or sleeping too much: not at all 4. Feeling tired or having little energy: not at all 5. Poor appetite or overeating: not at all 6. Feeling bad about yourself - or that you are a failure or have let yourself or your family down: not at all 7. Trouble concentrating on things, such as reading the newspaper or watching television: not at all 8. Moving or speaking so slowly that other people could have noticed. Or the opposite - being so fidgety or restless that you have been moving around a lot more than usual: not at all 9. Thoughts that you would be better off or of hurting yourself in some way: not at all Total score: 0 Depression Screening Interpretation: Negative Depression Screening Done: Yes Source: Developed by Drs. Gurjit Ledezma, Sara Christianson, Enrique Solano and colleagues, with an educational diego from [employer]. Thrive Questionnaire Date Thrive assessed: 02/21/24 I am a: Patient What is your living situation today?: I have a steady place to live Within the past 12 months, did the food you bought not last and you didn't have the money to get more?: Never true Within the past 12 months, did you worry whether your food would run out before you got money to buy more?: Never true Do you have trouble paying for medicines?: No Do you have trouble getting transportation to medical appointments?: No Do you have trouble paying your heating and electricity bill?: No Do you have trouble taking care of your child, family member or friend?: No Do you have trouble with day-to-day activities such as bathing, preparing meals, shopping, managing finances, etc.?: No Are you currently unemployed and looking for a job?: No Are you interested in more education?: No Currently or been in a relationship where the following occur: no concerns reported THRIVE Score: 0 AUDIT C Alcohol Use Questionnaire (AUDIT-C) 1. How often do you have a drink containing alcohol?: 2-3 times a week 2. How many drinks containing alcohol do you have on a typical day when you are drinking?: 1 or 2 Total Score: 3 WARREN-7 AMB Questionnaire WARREN-7 Date WARREN - 7 assessed: 02/21/24 Feeling nervous, anxious, or on edge: 0 = Not at all Not being able to stop or control worryin = Not at all Worrying too much about different things: 0 = Not at all Trouble relaxin = Not at all Being so restless that it is hard to sit still: 0 = Not at all Becoming easily annoyed or irritable: 0 = Not at all Feeling afraid as if something awful might happen: 0 = Not at all Total WARREN-7 score (0-4 normal; 5-9 mild; 10-14 moderate; 15-21 severe): 0 Source: Developed by Drs. Gurjit Ledezma, Sara Christianson, Enrique Solano and colleagues, with an educational diego from [employer]. Physical exam (Primary Care) Vital Signs: Last Vital Signs Pulse 47 L 02/21/24 12:46 BP 124/78 02/21/24 12:46 Pulse Ox 99 02/21/24 12:46 Oxygen Delivery Method Room Air 02/21/24 12:46 Care Plan Goal for BP management: Blood pressure is in range. Continue current medications. BMI result Body Mass Index 31.1 BMI Assessment/Plan discussion: High Tobacco/Smoking Status: Tobacco use Status Tobacco use date assessed 02/21/24 02/21/24 12:56 Patient Tobacco Use Status Never used Tobacco 02/21/24 12:56 e-Cigarette/Vaping Use Never Used 02/21/24 12:56 PHQ-9: PHQ-9 Score PHQ-9: Total score 0 02/21/24 12:56 Depression Screening Interpretation: Negative Thrive Assessment: Date of Thrive Assessment Date Thrive assessed 02/21/24 02/21/24 12:56 Currently or been in a relationship where the following occur: no concerns reported Advance Care Planning discussion: Exists, not on file Date of discussion: 02/21/24 Who was present: Patient Forms completed: Health Care Proxy Time spent: 1-15 minutes, not on file Actual minutes spent: 5 Const General: cooperative and healthy appearing Nutritional Appearance: well nourished Orientation/consciousness: patient oriented x3 Limitations: no limitations HENMT Head: Yes normal to inspection Eyes General: appearance normal, both eyes and all related structures Neck Neck: Yes normal visual inspection Chest Chest palpation & inspection: normal palpation of entire chest wall Resp Effort & Inspection: normal respiratory effort Neuro General: patient oriented x3 Extrem Other: Left hand: No nodules palpable along the tendons. Evidence of trigger finger present. Assessment and Plan Assessment & Plan (1) Nonsustained ventricular tachycardia: Comment: Patient has a loop monitor Code(s): I47.29 - Other ventricular tachycardia Plan: Continue present management with metoprolol. Follow-up with coffin maker. (2) High cholesterol: Code(s): E78.00 - Pure hypercholesterolemia, unspecified Plan: Blood work ordered. Continue rosuvastatin at the same dosage. (3) Trigger finger of all digits of left hand: Code(s): M65.322 - Trigger finger, left index finger; M65.312 - Trigger thumb, left thumb; M65.332 - Trigger finger, left middle finger; M65.342 - Trigger finger, left ring finger; M65.352 - Trigger finger, left little finger Plan: Currently does not need an orthopedic referral. If symptoms worsen, patient was advised to call for a referral. (4) Benign prostate hyperplasia: Code(s): N40.0 - Benign prostatic hyperplasia without lower urinary tract symptoms Plan: PSA to be checked. Orders: Orders Complete Blood Count no Diff Today E78.00 - Pure hypercholesterolemia, unspecified, I47.29 - Other ventricular tachycardia Basic Metabolic Panel Today E78.00 - Pure hypercholesterolemia, unspecified, I47.29 - Other ventricular tachycardia Liver Panel Today E78.00 - Pure hypercholesterolemia, unspecified, I47.29 - Other ventricular tachycardia Thyroid Stimulating Hormone Today E78.00 - Pure hypercholesterolemia, unspecified, I47.29 - Other ventricular tachycardia Lipid Panel Today E78.00 - Pure hypercholesterolemia, unspecified, I47.29 - Other ventricular tachycardia UA and rflx microscopic Today E78.00 - Pure hypercholesterolemia, unspecified, I47.29 - Other ventricular tachycardia Prostate Specific Antigen Scr Today N40.0 - Benign prostatic hyperplasia without lower urinary tract symptoms Referrals Cologuard Test Z12.11 - Encounter for screening for malignant neoplasm of colon Medications: New metoprolol succinate ER one tab in am and 0.5 at bed time 100 mg PO BID 180 tabs 0RF rosuvastatin 10 mg (1/2 x 20 mg) PO DAILY 90 tabs 1RF ticagrelor (Brilinta) 60 mg PO BID 180 tabs 1RF allopurinol 300 mg PO DAILY 90 tabs 1RF levothyroxine PO; 90 tabs 1RF valsartan-hydrochlorothiazide 160-12.5 mg 1 tab PO DAILY 90 tabs 1RF Refilled ezetimibe (Zetia) 10 mg PO DAILY 90 tabs 2RF Coding Level of Care Code Est Pt Prev Care >65y(31578) Diagnoses Nonsustained ventricular tachycardia I47.29 High cholesterol E78.00 Trigger finger of all digits of left hand M65.322; M65.312; M65.332; M65.342; M65.352 Benign prostate hyperplasia N40.0 Additional Codes Vital Signs *Quality* - Advance Care Planning discussion: Exists, not on file ([id number]) Vital Signs *Quality* - Time spent: 1-15 minutes, not on file ([id number])
[2024-02-21 12:46] VITALS: BP 124/78; PULSE 47; O2SAT 99; BMI 31.1
== END 2024-02-21 13:22 | disposition home or self-care (01) ==
PROVIDERS: PCP Internal Medicine; Visit Provider Internal Medicine
DX: Z00.00 Encounter for general adult medical examination without abnormal findings (principal); I47.29 Other ventricular tachycardia; E78.00 Pure hypercholesterolemia, unspecified; M65.322 Trigger finger, left index finger; M65.312 Trigger thumb, left thumb; M65.332 Trigger finger, left middle finger; M65.342 Trigger finger, left ring finger; M65.352 Trigger finger, left little finger; N40.0 Benign prostatic hyperplasia without lower urinary tract symptoms
CPT/HCPCS: 1124F; 99397

== ENCOUNTER 2024-03-18 08:42 | Outpatient (REF) | payer BC, SELFPAY ==
[2024-03-18 09:06] LABS: Hematocrit 42.7 % (42.0-52.0); Hemoglobin 14.3 g/dl (14.0-18.0); Mean Corpuscular HGB Conc 33.5 g/dl (31.0-36.0); Mean Corpuscular Hemoglobin 33.3 pg (27.0-33.0); Mean Corpuscular Volume 99.3 fL (80.0-98.0); Mean Platelet Volume 9.9 fL (9.4-12.4); Platelet Count 148 X10*3/uL (160-400); Red Cell Distribution Width 14.4 % (11.0-16.0); White Blood Count 5.6 X10*3/uL (4.8-10.8)
[2024-03-18 10:04] LABS: Alanine Aminotransferase 38 U/L (0-40); Albumin Level 4.4 g/dL (3.5-5.0); Alkaline Phosphatase 108 U/L (39-117); Anion Gap 14 (12-20); Aspartate Amino Transferase 35 U/L (5-37); Bilirubin Direct 0.2 mg/dL (0.0-0.5); Bilirubin Total 0.6 mg/dL (0.0-1.0); Blood Urea Nitrogen 21 mg/dL (9-16); Carbon Dioxide 23 mmol/L (22-29); Chloride 105 mmol/L (96-108); Cholesterol 121 mg/dL (<200); Estimated Glomerular Filt Rate > 60; Glucose Random 96 mg/dL (60-115); HDL Cholesterol 49 mg/dL (>40); LDL Cholesterol Calculated 56 mg/dL (<100); Potassium 4.5 mmol/L (3.3-5.1); Sodium 137 mmol/L (135-145); Total Protein 6.9 g/dL (6.5-8.0); Triglycerides 80 mg/dL (<150)
[2024-03-18 10:21] LABS: Thyroid Stimulating Hormone 0.01 uIU/mL (0.32-4.0)
[2024-03-18 11:49] LABS: Appearance Urine Clear; Color Urine Yellow; Glucose Urine UA Negative (Negative); Leukocyte Esterase Urine Negative (Negative); Nitrite Urine Negative (Negative); PH 5.5 (5.0-9.0); Specific Gravity - Urine 1.015 (1.005-1.025); UMIC TRIGGER UA YES; Urine Blood Trace (Negative); Urine Ketones Negative (Negative); Urine Protein Negative (Neg-Trace)
[2024-03-18 11:55] LABS: Bacteria Urine None Seen (None Seen); Hyaline Casts Urine 0-2 /LPF (0-2); Squamous Epithelial Cell Urine 0-2 /HPF (0-2); WBC Urine 0-5 /HPF (0-5)
== END 2024-03-18 08:43 | disposition home or self-care (01) ==
LOC: HO.LAB 08:42
PROVIDERS: PCP Internal Medicine; Visit Provider Internal Medicine
DX: I47.29 Other ventricular tachycardia (principal); E78.00 Pure hypercholesterolemia, unspecified; N40.0 Benign prostatic hyperplasia without lower urinary tract symptoms; Z12.5 Encounter for screening for malignant neoplasm of prostate
CPT/HCPCS: 36415; 80048; 80061; 80076; 81001; 84153; 84443; 85027

== ENCOUNTER 2024-03-21 00:09 | Emergency (ER) | payer BC, SELFPAY ==
--- NOTE | ~2024-03-21 | CT_ITS ---
EXAMINATION: CT CHEST WITHOUT CONTRAST CLINICAL INFORMATION: Cough and shortness of breath COMPARISON: Chest x-ray 03/18/2024 TECHNIQUE: Multidetector volumetric CT imaging of the chest was done. Axial MIP volume rendering provided. Sagittal and coronal reformatted images were obtained. This CT examination was performed using dose optimization techniques as appropriate, variously including the following: *Automated exposure control *Adjustment of mA and/or kV according to patient size (this includes techniques or standardized protocols for targeted exams where dose is matched to indication/reason for exam; i.e. extremities or head) *Use of iterative reconstruction technique DLP: 319 mGy-cm FINDINGS: LUNGS: There are a few patchy regions of mild groundglass and tree-in-bud type opacities in the right upper and lower lobes, favoring a mild infectious/inflammatory etiology. MEDIASTINUM: Patient is suspected to be status post thyroidectomy. There are subcentimeter mediastinal lymph nodes within the range of normal variation. Cardiac size is within normal limits; no pericardial effusion. Status post aortic valve replacement. Right-sided pacemaker lead extends to the right atrium. There is atherosclerotic calcification along the aorta. CORONARY ARTERY CALCIFICATION: Present PLEURA: No pneumothorax or pleural effusion. AXILLA: No lymphadenopathy. UPPER ABDOMEN: An approximately 1.2 cm right adrenal nodule measures less than 10 Hounsfield units, favoring a lipid rich adenoma; no follow-up recommended. OSSEOUS STRUCTURES: Status post sternotomy. Multilevel degenerative changes in the spine. CT/CT chest wo IV con IMPRESSION: Few patchy regions of mild groundglass and tree-in-bud type opacities in the right upper and lower lobes, favoring a mild infectious/inflammatory etiology. Follow-up CT in 3 months is advised to assess for resolution and exclude underlying subsolid nodule.
--- NOTE | ~2024-03-21 | CT_ITS ---
EXAMINATION: CT SOFT TISSUE NECK WITHOUT CONTRAST CLINICAL INFORMATION: Neck pain, shortness of breath COMPARISON: CT angiogram of head and neck 11/13/2018 TECHNIQUE: Helical imaging of the neck was performed in the axial plane without the administration of intravenous contrast and with generation of coronal and sagittal reformatted images. This CT examination was performed using dose optimization techniques as appropriate, variously including the following: *Automated exposure control. *Adjustment of mA and/or kV according to patient size (this includes techniques or standardized protocols for targeted exams where dose is matched to indication/reason for exam; i.e. extremities or head). *Use of iterative reconstruction technique. DLP: 578.48 mGy-cm mGy-cm. FINDINGS: Nasopharynx/Skull Base: The fat planes at the skull base and the soft tissues of the nasopharynx are within normal limits. The visualized paranasal sinuses and the mastoid air cells are well-aerated. Suprahyoid Neck: Artifact from dental amalgam degrades evaluation the oral cavity/oropharynx. No definite exophytic mass/lesion is visualized within this constraint. The parotid and submandibular glands are within normal limits. Infrahyoid Neck: The hypopharynx, larynx, and proximal subglottic airway are within normal limits. Thyroid: Prior thyroidectomy. Nodes: Mildly prominent right upper paratracheal lymph node. No significant cervical lymph nodes by CT size criteria. Lung Apices: Hazy opacification in the lung apices. Prior median sternotomy. Right chest wall pacer/ICD. Please see separately dictated CT scan of the chest for full intrathoracic findings Vascular Structures:Atherosclerosis of the thoracic aorta and proximal great vessels. Accurate luminal narrowing cannot be assessed in the absence of intravenous contrast. Osseous Structures: Multilevel degenerative changes of the cervical spine with up to moderate canal stenosis at T6-T7. Other Findings: Limited intracranial evaluation is within normal limits. Bilateral intraocular lens replacements. CT/CT soft tissue neck wo IV con IMPRESSION: No definite exophytic mass/lesion along the aerodigestive tract within the constraint of absent intravenous contrast. No significant lymph nodes by CT size criteria.
[2024-03-21 00:28] VITALS: BP 134/66; PULSE 58; O2SAT 98
[2024-03-21 00:33] VITALS: BP 138/66; PULSE 58; RESP 16; TEMP 36.6; O2SAT 94
[2024-03-21 00:34] VITALS: BP 138/66; PULSE 58; RESP 18; TEMP 36.6; O2SAT 99; BMI 27.9
--- NOTE | 2024-03-21 01:01 | ED.GENADULT ---
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 Patient is sickness started about week ago with cough with production of a thick greenish sputum, sore throat, body ache, and subjective fever patient was started on Z-Milad by his PA patient started to feel improvement with still production of clear sputum, while he was sleeping today he started here noises in the throat while breathing described it as crackles, patient is able to speak in full sentence with no voice change, able to swallow with own saliva, no drooling. Related Data Home Medications ?Medication ?Instructions ?Recorded ?Confirmed aspirin 81 mg tablet,delayed 81 mg PO DAILY 12/28/21 02/22/24 release latanoprost 0.005 % eye drops 1 drp ophthalmic (eye) BEDTIME 12/28/21 02/22/24 cholecalciferol (vitamin D3) 25 25 mcg PO DAILY 09/19/22 02/22/24 mcg (1,000 unit) capsule dorzolamide 22.3 mg-timolol 6.8 1 drp ophthalmic (eye) BID 09/19/22 02/22/24 mg/mL eye drops vitamin B12 1,000 mcg-folic acid tab sublingual 09/19/22 02/22/24 400 mcg sublingual tablet celecoxib 200 mg capsule 200 mg PO DAILY 10/18/23 02/22/24 Previous Rx's ?Medication ?Instructions ?Recorded allopurinol 300 mg tablet 300 mg PO DAILY #90 tabs 02/22/24 levothyroxine 137 mcg tablet See Rx Instructions PO .COMPLEX 02/22/24 #90 tabs metoprolol succinate 100 mg 100 mg PO BID #180 tabs 02/22/24 tablet,extended release 24 hr rosuvastatin 20 mg tablet 10 mg (1/2 x 20 mg) PO DAILY #90 02/22/24 tabs ticagrelor 60 mg tablet (Brilinta) 60 mg PO BID #180 tabs 02/22/24 valsartan 160 1 tab PO DAILY #90 tabs 02/22/24 mg-hydrochlorothiazide 12.5 mg tablet azithromycin 250 mg tablet See Rx Instructions PO .COMPLEX #6 03/18/24 tabs ezetimibe 10 mg tablet 10 mg PO DAILY #90 tabs 03/19/24 amoxicillin 875 mg-potassium 1 tab PO BID #14 tabs 03/21/24 clavulanate 125 mg tablet Allergies Allergy/AdvReac Type Severity Reaction Status Date / Time Iodinated Contrast Media Allergy Severe VASCULAR Verified 03/21/24 00:38 [IV Dye, Iodine Containing] COLLAPSE and vascular spasm atorvastatin [ATORVASTATIN] Allergy Unknown VISUAL Verified 03/21/24 00:38 HALOS simvastatin [SIMVASTATIN] Allergy Unknown MYALGIA Verified 03/21/24 00:38 vancomycin [VANCOMYCIN] Allergy Unknown itching, Verified 03/21/24 00:38 rash and hives clopidogrel [From Plavix] AdvReac Intermediate Diarrhea Verified 03/21/24 00:38 Review of Systems Review of Systems: all other systems are reviewed and are negative Constitutional: Reports as per HPI and Reports no additional constitutional complaints Eyes: Reports as per HPI and Reports no additional eye complaints Reports system reviewed and no additional complaints, except as documented Cardiovascular: Reports as per HPI and Reports no additional cardiovascular complaints Respiratory: Reports as per HPI and Reports no additional respiratory complaints Gastrointestinal: Reports as per HPI and Reports no additional gastrointestinal complaints Genitourinary: Reports no additional female genitourinary complaints Musculoskeletal: Reports no additional musculoskeletal complaints Skin/Breast: Reports system reviewed and no additional complaints, except as docu Psychiatric: Reports no additional psychiatric complaints Endocrine: Reports no additional endocrine complaints Hematologic/Lymphatic: Reports no additional hematologic/lymphatic complaints Allergic/Immunologic: Reports no additional allergic/immunologic complaints Reports system reviewed and no additional complaints, except as documented and Reports Abnormal speech present [facility] Past Medical History Medical History Benign prostate hyperplasia Trigger finger of all digits of left hand Raynauds phenomenon Blindness, sudden AV block Hypertension Surgical History History of surgery History of basal cell carcinoma excision History of appendectomy History of permanent cardiac pacemaker placement History of thyroidectomy Status post percutaneous patent foramen ovale closure Status post ascending aortic replacement History of aortic valve replacement Social History Social History Housing: House Alcohol intake: current Alcohol intake frequency: a few times a week Alcohol type: beer Patient Tobacco Use Status: Never used Tobacco Smoked in Last 30 Days: No e-Cigarette/Vaping Use: Never Used Second Hand Smoke Exposure: No Use of substances other than those prescribed or required for medical reasons: No Advance Directives: No Advance Directives Information Provided: Yes service: No 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 occupational status: employed and 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 Blood pressure elevated. Heart rate normal. Respiratory rate normal. Temperature normal. Oxygen saturation normal. Appearance: Alert. Oriented X3. No acute distress. Head: Normal external exam. Normocephalic. Atraumatic. No Hanley signs noted. No raccoon eyes noted Eyes: PERRLA. EOMI. Conjunctiva and sclera normal. Eyelids normal. ENT: TM's Normal. Pharynx normal. Uvula midline. Moist mucous membranes. No trismus noted. No drooling noted. No muffled voice noted. No stridor Neck: Normal inspection. Neck supple. FROM. No adenopathy. Thyroid Normal. No meningeal signs. No neck mass noted. CVS: Normal heart rate and rhythm. Heart sound normal. No murmurs noted. Pulses normal throughout. Respiratory: No respiratory distress. Painless inspiration. Breath sounds normal. diffuse mild bilateral wheezes and rhonchi noted. Chest nontender. No accessory muscle usage noted or decreased air movement noted. Abdomen: Soft and nontender. Bowel sounds normal in all 4 quadrants. No distention noted. No organomegaly noted. No visible injury noted. Back: No CVA tenderness. Full range of motion noted. Skin: Skin warm and dry. Normal skin color. Normal skin turgor. No rashes/lesions/lacerations noted. Extremities: No lower extremity edema. Extremities exhibit normal range of motion. Extremities nontender. Neuro: Oriented X 3. Cranial nerve exam: II-XII are grossly intact No motor deficit. No sensory deficit. Reflexes normal. Course Reevaluation(s) Reevaluation #1: 74-year-old male came in for evaluation of throat pain, CT neck and chest remarkable for right lung upper and lower ground-glass consolidation suspicious for pneumonia, patient is improving clinically with Z-Milad he is on day 3. Will add Augmentin, patient also will take prednisone 20 mg b.i.d. for 3 days. Time: 05:51 Medications Administered Discontinued Medications Generic Name Dose Route Start Last Admin Trade Name Freq PRN Reason Stop Dose Admin Albuterol/Ipratropium 3 ml 03/21/24 01:09 03/21/24 01:23 Albuterol/Iprat 2.5/0.5mg 3 Ml Ampul.Neb INHALE 03/21/24 01:10 3 ml ONCE ONE Administration Sodium Chloride 1,000 mls @ 999 mls/hr 03/21/24 00:57 03/21/24 03:30 Ns IV 03/21/24 01:57 Infused .Q1H1M ONE Infusion Methylprednisolone Sodium Succinate 125 mg 03/21/24 00:59 03/21/24 01:38 Methylprednisolone Sod Succ 125 Mg/2 Ml Vial IVPUSH 03/21/24 01:00 125 mg ONCE ONE Administration Medical Decision Making Differential Diagnosis Differential Diagnoses: The differential diagnosis associated with the presentation includes (Pneumonia, pneumothorax, pleural effusion, pharyngitis, obstructed airway, viral infection, severe anemia, electrolyte derangement.) Admission/Observation Consideration of admission/observation: Escalation of care including admission/observation considered Lab Data MDM Lab Attestation statement: I reviewed the patient's lab results. 03/21/24 01:33 03/21/24 01:34 Labs: Lab Results 03/21/24 03/21/24 03/21/24 Range/Units 00:55 01:33 01:34 WBC 6.0 (4.8-10.8) X10*3/uL RBC 4.17 L (4.60-5.80) X10*6/uL Hgb 14.1 (14.0-18.0) g/dl Hct 41.4 L (42.0-52.0) % MCV 99.3 H (80.0-98.0) fL MCH 33.8 H (27.0-33.0) pg MCHC 34.1 (31.0-36.0) g/dl RDW 14.1 (11.0-16.0) % Plt Count 155 L (160-400) X10*3/uL MPV 10.0 (9.4-12.4) fL Immature Gran % (Auto) 0.3 (0.0-0.4) % Neut % (Auto) 61.7 (45-73) % Lymph % (Auto) 23.8 (20-40) % [place] % (Auto) 8.2 (2-11) % Eos % (Auto) 5.3 H (0-4) % Baso % (Auto) 0.7 (0-2) % Lymph # (Auto) 1.4 (1.2-4.9) X10*3/uL [place] # (Auto) 0.5 (0.1-1.2) X10*3/uL Eos # (Auto) 0.3 (0.0-0.4) X10*3/uL Baso # (Auto) 0.0 (0.0-0.2) X10*3/uL Abs Immat Gran (auto) 0.02 (0.00-0.03) X10*3/uL Absolute Neuts (auto) 3.7 (2.0-8.3) x10*3/uL Absolute Nucleated RBC 0.000 (0.0-0.012) X10*3/uL Nucleated RBC % (auto) 0.0 (0.0-0.2) /100WBC Sodium 139 (135-145) mmol/L Potassium 4.1 (3.3-5.1) mmol/L Chloride 104 (96-108) mmol/L Carbon Dioxide 24 (22-29) mmol/L Anion Gap 15 (12-20) BUN 28 H (9-16) mg/dL Creatinine 1.19 (0.5-1.4) mg/dL Estim Creat Clear Calc 61.8 Estimated GFR 60 Random Glucose 98 (60-115) mg/dL Calcium 10.0 (8.4-10.2) mg/dL Troponin I High Sens 3.3 (<3.5-35.0) ng/L Influenza Type A (PCR) NEGATIVE (Negative) Influenza Type B (PCR) NEGATIVE (Negative) RSV RNA Qual (PCR) NEGATIVE (Negative) SARS-CoV-2 RNA (RT-PCR) NEGATIVE (Negative) S. pyogenes GrpA SULEIMAN Negative (Negative) Independent Interpretation I performed an independent interpretation of an: CT Scan (Soft tissue neck/chest CT:No definite exophytic mass/lesion along the aerodigestive tract within the constraint of absent intravenous contrast. No significant lymph nodes by CT size criteria patchy regions of mild groundglass and tree-in-bud type opacities in the right upper and lower lobes, fa ) Radiology Impression Discussion of test interpretation with radiology: I have reviewed the radiologist's reading. Discharge Plan Discharge Clinical Impression: Pneumonia Patient Disposition: Home, Self-Care Instructions: Pneumonia (ED) Additional Instructions: As we discussed 1. Take prednisone 20 mg twice a day for 3 days. 2. Finish the course for Z-Milad. 3. Take the new antibiotic prescription of Augmentin as instructed. Prescriptions: New amoxicillin-pot clavulanate 875-125 mg tablet 1 tab PO BID Qty: 14 0RF No Action ezetimibe 10 mg tablet 10 mg PO DAILY Qty: 90 3RF aspirin 81 mg tablet,delayed release (DR/EC) 81 mg PO DAILY latanoprost 0.005 % drops 1 drp ophthalmic (eye) BEDTIME celecoxib 200 mg capsule 200 mg PO DAILY allopurinol 300 mg tablet 300 mg PO DAILY Qty: 90 1RF levothyroxine 137 mcg tablet See Rx Instructions PO .COMPLEX Qty: 90 1RF Rx Instructions: PO; metoprolol succinate 100 mg tablet extended release 24 hr 100 mg PO BID Qty: 180 0RF Rx Instructions: one tab in am and 0.5 at bed time rosuvastatin 20 mg tablet 10 mg PO DAILY Qty: 90 1RF Brilinta 60 mg tablet 60 mg PO BID Qty: 180 1RF valsartan-hydrochlorothiazide 160-12.5 mg tablet 1 tab PO DAILY Qty: 90 1RF dorzolamide-timolol 22.3-6.8 mg/mL drops 1 drp ophthalmic (eye) BID cholecalciferol (vitamin D3) 25 mcg (1,000 unit) capsule 25 mcg PO DAILY vitamin Z03-rjuil acid 1,000-400 mcg tablet, sublingual sublingual azithromycin 250 mg tablet See Rx Instructions PO .COMPLEX Qty: 6 0RF Rx Instructions: For 250 mg dose pack: take 500 mg today (day 1), then 250 mg for 4 days (days 2-5) PO Print Language: German
[2024-03-21] MEDS: Albuterol/Iprat 2.5/0.5MG 3 ML AMPUL.NEB INHALE (01:23)
[2024-03-21 01:37] LABS: Influenza A PCR NEGATIVE (Negative); Influenza B PCR NEGATIVE (Negative); Resp Syncy Virus RNA Qual PCR NEGATIVE (Negative); SARS COV2 PCR INHOUSE NEGATIVE (Negative)
[2024-03-21] MEDS: methylPREDNISolone Sod Succ 125 MG/2 ML VIAL IVPUSH (01:38)
[2024-03-21] MEDS: 0.9 % Sodium Chloride 1,000 ML 999 ML IV (01:38)
[2024-03-21 01:39] LABS: Basophils Percent Auto 0.7 % (0-2); Eosinophils Absolute Auto 0.3 X10*3/uL (0.0-0.4); Eosinophils Percent Auto 5.3 % (0-4); Hematocrit 41.4 % (42.0-52.0); Hemoglobin 14.1 g/dl (14.0-18.0); Imm Gran Abs Auto 0.02 X10*3/uL (0.00-0.03); Imm Gran Pct Auto 0.3 % (0.0-0.4); Lymphocytes Absolute Auto 1.4 X10*3/uL (1.2-4.9); Lymphocytes Percent Auto 23.8 % (20-40); MANUAL DIFF FLAG NO; Mean Corpuscular HGB Conc 34.1 g/dl (31.0-36.0); Mean Corpuscular Hemoglobin 33.8 pg (27.0-33.0); Mean Corpuscular Volume 99.3 fL (80.0-98.0); Monocytes Absolute Auto 0.5 X10*3/uL (0.1-1.2); Monocytes Percent Auto 8.2 % (2-11); Neutrophils Absolute Auto 3.7 x10*3/uL (2.0-8.3); Neutrophils Percent Auto 61.7 % (45-73); Platelet Count 155 X10*3/uL (160-400); Red Blood Count 4.17 X10*6/uL (4.60-5.80); Red Cell Distribution Width 14.1 % (11.0-16.0)
[2024-03-21 01:52] LABS: IDNOW Serial# 08D9AD1C; Strep A Nucleic Acid Negative (Negative)
[2024-03-21 01:53] LABS: Anion Gap 15 (12-20); Blood Urea Nitrogen 28 mg/dL (9-16); Carbon Dioxide 24 mmol/L (22-29); Chloride 104 mmol/L (96-108); Creatinine Clr Calc Pharmacy 61.8; Estimated Glomerular Filt Rate 60; Glucose Random 98 mg/dL (60-115); Potassium 4.1 mmol/L (3.3-5.1); Sodium 139 mmol/L (135-145)
[2024-03-21 02:00] LABS: Troponin-I High Sensitivity 3.3 ng/L (<3.5-35.0)
[2024-03-21 02:46] VITALS: BP 121/57; PULSE 66; RESP 19; TEMP 36.9; O2SAT 96
[2024-03-21 04:01] VITALS: PULSE 63; O2SAT 97
[2024-03-21 06:39] VITALS: BP 149/59; PULSE 68; RESP 17; TEMP 37.1; O2SAT 97
== END 2024-03-21 06:10 | disposition home or self-care (01) ==
PROVIDERS: Emergency Provider Emergency Medicine; PCP Internal Medicine
DX: J18.9 Pneumonia, unspecified organism (principal); I10 Essential (primary) hypertension
CPT/HCPCS: 0241U; 36415; 70490; 71250; 80048; 84484; 85025; 87651; 96361; 96374; 99284; 99285; J2919

== ENCOUNTER 2024-03-26 08:25 | Outpatient (AMB) | payer BC, SELFPAY ==
--- NOTE | 2024-03-26 08:27 | MHC.OFFVIS ---
Vital Signs 03/26/24 08:28 Height 5 ft 10 in Weight 194 lb 0.108 oz BMI 27.8 BP 124/74 Blood Pressure Location Lt brachial Position Sitting Pulse 66 Intake Visit Reasons: 6 mth fu Intake Note: 6 month follow-up with ekg and Medtronic getting over pneumonia Electronic Operator Required: No Allergies Iodinated Contrast Media [IV Dye, Iodine Containing] Allergy (Severe, Verified 03/21/24 00:38) VASCULAR COLLAPSE and vascular spasm atorvastatin [ATORVASTATIN] Allergy (Unknown, Verified 03/21/24 00:38) VISUAL HALOS simvastatin [SIMVASTATIN] Allergy (Unknown, Verified 03/21/24 00:38) MYALGIA vancomycin [VANCOMYCIN] Allergy (Unknown, Verified 03/21/24 00:38) itching, rash and hives clopidogrel [From Plavix] Adverse Reaction (Intermediate, Verified 03/21/24 00:38) Diarrhea Medication List - Last Reconciled 03/26/24 by Ad Gallardo MD allopurinol 300 mg PO DAILY amoxicillin-pot clavulanate 875-125 mg 1 tab PO BID aspirin 81 mg PO DAILY celecoxib 200 mg PO DAILY cholecalciferol (vitamin D3) 25 mcg PO DAILY dorzolamide-timolol 22.3-6.8 mg/mL 1 drp ophthalmic (eye) BID ezetimibe 10 mg PO DAILY latanoprost 0.005% 1 drp ophthalmic (eye) BEDTIME levothyroxine 137 mcg PO DAILY mecobalamin (vitamin B12) 1,000 mcg PO DAILY metoprolol succinate ER 100 mg PO BID rosuvastatin 10 mg (1/2 x 20 mg) PO DAILY ticagrelor (Brilinta) 60 mg PO BID valsartan-hydrochlorothiazide 160-12.5 mg 1 tab PO DAILY HPI Comments Details: Shashank comes for follow-up. He felt 1. Of palpitation quick in November which correlates with SVT on the pacer telemetry. He denies any other symptoms. Denies any other cardiac symptoms. Recently coming over pneumonia. Feels fatigued because of that denies any exertional chest pain. No worsening shortness of breath, orthopnea, PND, leg edema. No new neurologic symptoms. Currently tolerating dual antiplatelet therapy. [facility] Medical History Benign prostate hyperplasia Trigger finger of all digits of left hand Raynauds phenomenon Blindness, sudden AV block Hypertension Surgical History History of surgery History of basal cell carcinoma excision History of appendectomy History of permanent cardiac pacemaker placement History of thyroidectomy Status post percutaneous patent foramen ovale closure Status post ascending aortic replacement History of aortic valve replacement Social History Housing: House Alcohol intake: current Alcohol intake frequency: a few times a week Alcohol type: beer Patient Tobacco Use Status: Never used Tobacco e-Cigarette/Vaping Use: Never Used Second Hand Smoke Exposure: No service: No 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 occupational status: employed and 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 needs: No Hearing needs: Yes (hearind aides) Vision needs: Yes (glasses) Review of Systems Const Denies chills, Denies fatigue, Denies fever(s), Denies frequent falls, Denies weakness, Denies weight gain and Denies weight loss ENT Denies dizziness Card Denies chest pain, Denies leg edema, Denies lightheadedness, Denies palpitations, Denies dyspnea, Denies dyspnea on exertion, Denies orthopnea and Denies other (loss of consciousness) Resp Denies cough, Denies dyspnea and Denies dyspnea on exertion GI Denies hematochezia and Denies change in stool character Musc Denies abnormal gait, Denies muscle weakness, Denies numbness, Denies radiating pain into limb and Denies tingling Neuro Denies abnormal gait, Denies dizziness, Denies frequent falls, Denies numbness, Denies tingling and Denies weakness Endo Denies fatigue and Denies palpitations Physical Exam Vital Signs: Last Vital Signs Pulse 66 03/26/24 08:28 BP 124/74 03/26/24 08:28 BMI result Body Mass Index 27.8 Const General: cooperative, comfortable, no acute distress, alert and awake Nutritional Appearance: obese Orientation/consciousness: patient oriented x3 Limitations: no limitations Neck Neck: Yes trachea midline, Yes supple and Yes no JVD Carotids: normal carotid upstroke and no bruits Resp Effort & Inspection: normal respiratory effort Auscultation: bronchovesicular breath sounds on the right (Posterior lung field) Cardio Jugular venous distension: no JVD Palpation: normal PMI Rate: regular rate Rhythm: regular rhythm Heart sounds: S1 normal heart sound present, S2 normal heart sound present, no click, no gallops and Murmur heart sound present systolic early, decrescendo and crescendo GI Auscultation: normal bowel sounds Skin General skin exam: no rashes or lesions noted Neuro General: patient oriented x3 and no focal motor deficits Extrem General: Yes no clubbing, cyanosis or edema Psych Appearance: grossly normal Office Procedures Cardiac Device Check Cardiac Device Check Details: Single-chamber Saint Shan pacemaker in place. Programmed in VVI. Ventricular pacing thresholds excellent. Ventricular sensing is excellent. Pacing lead impedance is stable. Battery life is adequate [id number] Cardiac Device Check, leadless/single lead pacemaker Procedure code (CPT) selection complete Cardiac Device Check Cardiac Device Check Details: [employer] implantable loop recorder in place. Measured R-waves at 0.7-0.8 mV. No arrhythmias detected. Battery life is good. Good P-waves identified. Occasional PACs noted [id number] Device Interrogation, subcut cardiac rhythm monitor Procedure code (CPT) selection complete EKG Details: EKG shows normal sinus rhythm with right bundle-branch block, QS pattern in lead 1 V1 V2, unchanged from before [id number], Complete Assessment & Plan Assessment & Plan (1) Implantable loop recorder present: Code(s): Z95.818 - Presence of other cardiac implants and grafts Category: Medical Plan: Placement of implantable loop recorder due to presence of sudden vision loss consistent with possible embolic event. He has not had any significant events on dual antiplatelet therapy possibly suggesting a vascular cause. There is no evidence of atrial fibrillation so far. Will continue monitor for another 6 months to a year. If negative will proceed with removal of the implantable loop recorder. Will continue pursue remote monitoring. (2) Status post percutaneous patent foramen ovale closure: Code(s): Z87.74 - Personal history of (corrected) congenital malformations of heart and circulatory system Category: Surgical Plan: Status post PFO closure with device. Follow-up echocardiogram near future. Continue antiplatelet therapy as above. (3) History of aortic valve replacement: Comment: Aortic stenosis secondary to bicuspid aortic valve undergoing repair at age 14 at [facility]. Followed by in 1990 undergoing Saint Shan 23 mm aortic valve replacement at [facility] for stenosis. Surgery was complicated at that time with RV laceration, which had to be repaired. 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 He had ascending aortic repair as well. Patient doing well. No clinical signs of valve dysfunction. Follow-up echocardiogram near future. Currently on dual antiplatelet therapy. Blood pressure is currently well optimized advised to monitor blood pressure at home maintain a log. Continue aggressive vascular risk factor modification. Increase activity level is recommended. Target goal LDL less than 100 mg/dL. SBE prophylaxis as per ACC/aha guidelines. (4) Cardiac pacemaker: Code(s): Z95.0 - Presence of cardiac pacemaker Category: Medical Plan: Single-chamber cardiac pacemaker in-situ for AV block post surgery. Patient is doing well. Continue to monitor remotely. Follow up in the clinic in 6 months time. Will follow up in the clinic in 6 months time, sooner p.r.n.. Thank you for allowing me to partake in his care Orders: Orders CA echo transthoracic complete Today Ad Gallardo MD Z95.2 - Presence of prosthetic heart valve Medications: Changed From levothyroxine PO; 90 tabs 1RF To levothyroxine 137 mcg PO DAILY Anthony Hewitt MD Coding Level of Care Code Est Pt Level 4 (90179) Diagnoses Implantable loop recorder present Z95.818 Status post percutaneous patent foramen ovale closure Z87.74 History of aortic valve replacement Z95.2 Cardiac pacemaker Z95.0 CPT Codes Cardiac Device Check - Cardiac Device 1: 79471-DV Cardiac Device Check, leadless/single lead pacemaker ([id number]) Cardiac Device Check - Cardiac Device 11: [id number]-Iwfcfas Device Interrogation, subcut cardiac rhythm monitor ([id number]) EKG - CPT: 76974-Tzfvwynibyksvyoax, Complete ([id number])
[2024-03-26 08:28] VITALS: BP 124/74; PULSE 66; BMI 27.8
== END 2024-03-26 09:04 | disposition home or self-care (01) ==
PROVIDERS: PCP Internal Medicine; Visit Provider Internal Medicine Cardiovascular Disease
DX: R94.31 Abnormal electrocardiogram [ECG] [EKG] (principal); Z87.74 Personal history of (corrected) congenital malformations of heart and circulatory system; Z95.818 Presence of other cardiac implants and grafts; Z95.2 Presence of prosthetic heart valve; Z95.0 Presence of cardiac pacemaker
CPT/HCPCS: 93010; 93279; 93291; 99214

== ENCOUNTER → 2024-03-26 08:25 | Outpatient (BNVA) | payer BC, SELFPAY | PROVIDERS: PCP Internal Medicine; Visit Provider Internal Medicine Cardiovascular Disease | DX: Z45.018 Encounter for adjustment and management of other part of cardiac pacemaker (principal); Z87.74 Personal history of (corrected) congenital malformations of heart and circulatory system; Z95.2 Presence of prosthetic heart valve; Z79.899 Other long term (current) drug therapy | CPT/HCPCS: 93005 ==

== ENCOUNTER → 2024-04-15 13:49 | Outpatient (REF) | payer BC, SELFPAY ==
--- NOTE | 2024-04-15 13:52 | CA_ITS ---
Transthoracic Echocardiogram Patient (Last, First, Middle): Shashank Gruber M Gender: Male Date of : 1950 Age: 74 Procedure Date: 04/15/2024 Procedure Type: Transthoracic Echocardiogram Location: OP Height: 170.18 cm Weight: 88.45 kg BSA: 2.00 m2 Heart Rate: bpm BP: 124 / 80 mmHg Chemical Blender: Referring MD: Ad Gallardo MD Symptoms: Z95.2 - Presence of prosthetic heart valve Study Quality: Adequate ECG Rhythm: Sinus Conclusions: - The left ventricular systolic function is normal. The visually estimated ejection fraction is between 55-60%. - Evidence suggests grade II (moderate) diastolic dysfunction. - An atrial septal closure device is seen. - A bioprosthetic aortic valve is present. The prosthetic aortic valve appears to be functioning normally. - There is moderate mitral annular calcification. Findings Left Ventricle Normal left ventricular cavity size. There is mildly increased left ventricular wall thickness. The left ventricular systolic function is normal. The visually estimated ejection fraction is between 55-60%. There is no evidence of regional wall motion abnormalities. Evidence suggests grade II (moderate) diastolic dysfunction. Right Ventricle Mildly increased right ventricular cavity size. There is mildly decreased right ventricular systolic function. Atria The left atrium is mildly dilated. An atrial septal closure device is seen. The right atrium is normal in size. Aortic Valve A bioprosthetic aortic valve is present. The prosthetic aortic valve appears to be functioning normally. The mean gradient is 10 mmHg. There is trace (trivial) aortic valve regurgitation. Mitral Valve There is moderate mitral annular calcification. There is no mitral valve regurgitation. There is no mitral valve stenosis. Pulmonic Valve The pulmonic valve is likely normal. Tricuspid Valve There is trace tricuspid valve regurgitation. There is no evidence of pulmonary hypertension. Great Vessels The asc aorta is normal in size. Venous The inferior vena cava is normal in size and collapses greater than 50% with inspiration. Pericardium/Pleural There is no evidence of pericardial effusion. Prior Study Comparison No significant change compared to prior study dated: 10/02/2022. Measurements 2D Linear Measurements IVSd: 1.25 0.6-0.9/0.6-1.0 cm LVIDd: 5.03 3.9-5.3/4.2-5.9 cm LVIDd Index: 2.52 2.4-3.2/2.2-3.1 cm/m2 LVIDs: 2.90 2.0-3.6 cm LVPWd: 1.22 0.7-1.1 cm Ao Root: 3.30 2.1-3.5 cm LA Diam: 4.50 2.7-3.8/3.0-4.0 cm LAIDs Index: 2.25 1.5-2.3 cm/m2 LV Mass: 306.40 67-162/88-224 g LV Mass Index: 153.20 43-95/49-115 g/m2 LVOT Diam: 2.00 3.0+(-)1.3 cm 2D Systolic Function EF 4C: 57.40 >55% EF 2C: 69.50 >55% EF BiP: 63.80 >55% Mitral Valve MV Pk E: 1.21 MV PK A: 1.02 MV Decel Time: 343.00 E/A: 1.20 E'Lateral: 9.90 E'Medial: 4.46 E/E' Med: 27.10 E/E' Lat: 12.20 PHT: 100.00 MVA PHT: 2.20 Decel Mccone: 3.52 Aortic Valve AoV Pk Kailash: 2.40 AoV Mn Kailash: 1.41 AoV VTI: 0.51 AoV Pk Grad: 23.00 Aov Mn Grad: 10.00 RIOS Cont.VTI: 1.22 LVOT LVOT Pk Kailash: 0.89 LVOT Mn Kailash: 0.54 LVOT VTI: 0.20 LVOT Pk Grad: 3.00 LVOT Mn Grad: 2.00 LVOT Diam: 2.00 LVOT Area: 3.14 Diastolic Function MV Pk E: 1.21 MV Pk A: 1.02 E/A: 1.20 E'Medial: 4.46 E/E' Med: 27.10 E' Laterial: 9.90 E/E' Lat: 12.20 Tricuspid Valve TR Pk Kailash: 1.67 TR Pk Grad: 11.00 RA Press: 3.00 RVSP: 14.00 Great Vessels Aorta Ao Root-2D: 3.30 2.0-3.7 cm Ao Asc: 2.80 2.1-3.4 cm Pulmonary Valve PV Pk Kailash: 1.19 Peak PV Grad: 6.00 Updated in Other Vendor System with Status of Final Wilmer Salamanca MD electronically signed on 04/16/2024 10:55:50 AM with status of Final
== END ==
LOC: HO.CARD 13:49
PROVIDERS: PCP Internal Medicine; Visit Provider Internal Medicine Cardiovascular Disease
DX: Z95.2 Presence of prosthetic heart valve (principal)
CPT/HCPCS: 93306

== ENCOUNTER → 2024-04-15 13:52 | Outpatient (BNV) | payer BC, SELFPAY | PROVIDERS: PCP Internal Medicine; Visit Provider Internal Medicine | DX: I51.89 Other ill-defined heart diseases (principal); Z95.3 Presence of xenogenic heart valve; I34.81 Nonrheumatic mitral (valve) annulus calcification | CPT/HCPCS: 93306 ==

== ENCOUNTER → 2024-05-02 23:59 | Outpatient (BNV) | payer BC, SELFPAY ==
--- NOTE | 2024-05-12 13:21 | MHC.OFFVIS ---
Intake Visit Reasons: Remote ILR Check- Medtr[employer] Allergies Iodinated Contrast Media [IV Dye, Iodine Containing] Allergy (Severe, Verified 03/21/24 00:38) VASCULAR COLLAPSE and vascular spasm atorvastatin [ATORVASTATIN] Allergy (Unknown, Verified 03/21/24 00:38) VISUAL HALOS simvastatin [SIMVASTATIN] Allergy (Unknown, Verified 03/21/24 00:38) MYALGIA vancomycin [VANCOMYCIN] Allergy (Unknown, Verified 03/21/24 00:38) itching, rash and hives clopidogrel [From Plavix] Adverse Reaction (Intermediate, Verified 03/21/24 00:38) Diarrhea [facility] Medical History Benign prostate hyperplasia Trigger finger of all digits of left hand Raynauds phenomenon Blindness, sudden AV block Hypertension Surgical History History of surgery History of basal cell carcinoma excision History of appendectomy History of permanent cardiac pacemaker placement History of thyroidectomy Status post percutaneous patent foramen ovale closure Status post ascending aortic replacement History of aortic valve replacement Social History Housing: House Alcohol intake: current Alcohol intake frequency: a few times a week Alcohol type: beer Patient Tobacco Use Status: Never used Tobacco e-Cigarette/Vaping Use: Never Used Second Hand Smoke Exposure: No service: No 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 No episodes of atrial fibrillation noted [id number] Cardiac Interrogation, subcut cardiac rhythm monitor Procedure code (CPT) selection complete Assessment & Plan Assessment & Plan (1) Implantable loop recorder present: Code(s): Z95.818 - Presence of other cardiac implants and grafts Category: Medical Plan: See above Coding Level of Care Code Procedure Only Diagnoses Implantable loop recorder present Z95.818 CPT Codes Cardiac Device Check - Cardiac Device 16: [id number] Cardiac Interrogation, subcut cardiac rhythm monitor ([id number])
== END ==
PROVIDERS: PCP Internal Medicine; Visit Provider Internal Medicine Cardiovascular Disease
DX: I48.91 Unspecified atrial fibrillation (principal); Z95.818 Presence of other cardiac implants and grafts
CPT/HCPCS: 93298

== ENCOUNTER → 2024-06-06 23:59 | Outpatient (BNV) | payer BC, SELFPAY ==
--- NOTE | 2024-07-11 15:07 | MHC.OFFVIS ---
Intake Visit Reasons: remote ILR check- Medtronic Allergies Iodinated Contrast Media [IV Dye, Iodine Containing] Allergy (Severe, Verified 03/21/24 00:38) VASCULAR COLLAPSE and vascular spasm simvastatin [SIMVASTATIN] Allergy (Intermediate, Verified 07/11/24 13:08) MYALGIA vancomycin [VANCOMYCIN] Allergy (Intermediate, Verified 07/11/24 13:08) itching, rash and hives atorvastatin [ATORVASTATIN] Allergy (Mild, Verified 07/11/24 13:08) VISUAL HALOS clopidogrel [From Plavix] Adverse Reaction (Intermediate, Verified 03/21/24 00:38) Diarrhea [facility] Medical History (Updated 07/11/24 @ 13:20 by Brianna Valencia RN) ASVD (arteriosclerotic vascular disease) Glaucoma AAA (abdominal aortic aneurysm) Bicuspid aortic valve Benign prostate hyperplasia Trigger finger of all digits of left hand Raynauds phenomenon Blindness, sudden AV block Hypertension Surgical History (Updated 07/11/24 @ 13:20 by Brianna Valencia RN) Hx of cataract extraction History of surgery History of basal cell carcinoma excision History of appendectomy History of permanent cardiac pacemaker placement History of thyroidectomy Status post percutaneous patent foramen ovale closure Status post ascending aortic replacement History of aortic valve replacement Social History Housing: House Alcohol intake: current Alcohol intake frequency: a few times a week Alcohol type: beer Patient Tobacco Use Status: Never used Tobacco e-Cigarette/Vaping Use: Never Used Second Hand Smoke Exposure: No service: No 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 I was requested to read this study on 07/10/2024. No arrhythmias noted [id number] Cardiac Interrogation, subcut cardiac rhythm monitor Procedure code (CPT) selection complete Assessment & Plan Assessment & Plan (1) Implantable loop recorder present: Code(s): Z95.818 - Presence of other cardiac implants and grafts Category: Medical Plan: See above Coding Level of Care Code Procedure Only Diagnoses Implantable loop recorder present Z95.818 CPT Codes Cardiac Device Check - Cardiac Device 16: 74365-Muuzvt Cardiac Interrogation, subcut cardiac rhythm monitor ([id number])
== END ==
PROVIDERS: PCP Internal Medicine; Visit Provider Internal Medicine Cardiovascular Disease
DX: Z45.09 Encounter for adjustment and management of other cardiac device (principal)
CPT/HCPCS: 93298

== ENCOUNTER 2024-07-02 10:55 | Outpatient (REF) | payer BC, SELFPAY ==
--- NOTE | 2024-07-02 15:43 | MHC.AU.HA3 ---
Hearing Instrument Follow-Up- Binaural Date of Visit: 07/02/24 Right Ear: Model Rasheed, Color, Serial Number: Santos Judd [id number]-[id number] SN: [id number] Color: Silver [place] [employer] Ceo Repair Warranty: 08/22/2018 [employer] Founder [employer] Ceo Loss and Damage Warranty: 08/22/2018 Battery Size: 312 Stock [place] Supervisor/Slim Tube: Size 2 slim tube Earmold/Dome/CShell/SlimTip:Large Open Dome Dispensed By: [facility] Date of Fittin06/01/2015 Left Ear: Model Rasheed, Color, Serial Number: Santos Judd V90-[id number] SN: [id number] Color: Silver De [place] [employer]ounder [employer] Ceo Repair Warranty: 08/22/2018 [employer] Founder [employer] Ceo Loss and Damage Warranty: 08/22/2018 Battery Size: 312 Stock [place] Supervisor/Slim Tube: Size 2 slim tube Earmold/Dome/CShell/SlimTip: Large Open Dome Dispensed By: [facility] Date of Fittin06/01/2015 Follow-Up Summary: Initially scheduled test due to lost hearing aid. However, in the meantime, found the hearing aid but wanted updated hearing test anyways as it has been 9 years since last evaluation. Hearing has decreased significantly. 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 Programmed demos/loaners today - Phonak Audeo P90-13T Trial. Discussed these are older generation. No loaner Ls or Is to demo. Attempted multiple dome styles/sizes; however, feedback curve continued to significantly cut out high frequencies. Using medium power domes for now. Discussed possibility of custom earmold if he decides to proceed with new hearing aids. However, he needs to use a stethoscope for work and is unsure if acrylic slim tip earmolds would work with stethoscope in ears. Has tried circumaural headphones with stethoscope without success. Currently using Metaversum amplified stethoscope, putting ear buds in ears behind receivers/domes. Tried stethoscope in office with power domes, working well. 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 Recommendations: An additional follow-up was scheduled to monitor progress. Diagnosis Code(s):Primary Diagnosis: H90.A21 SNHL, Unilateral Right Ear, W/Restricted Contralateral Hearing Secondary Diagnosis: H90.A32 Mixed HL, Unilateral, Left Ear, W/Restricted Contralateral Signature: Provider: Kavin Olson, [facility]
== END 2024-07-02 10:56 | disposition home or self-care (01) ==
LOC: HO.SH 10:55
PROVIDERS: Visit Provider Internal Medicine
DX: Z01.118 Encounter for examination of ears and hearing with other abnormal findings (principal); H90.A21 Sensorineural hearing loss, unilateral, right ear, with restricted hearing on the contralateral side; H90.A32 Mixed conductive and sensorineural hearing loss, unilateral, left ear with restricted hearing on the contralateral side
CPT/HCPCS: 92557; 92567

== ENCOUNTER → 2024-07-11 23:59 | Outpatient (BNV) | payer BC, SELFPAY ==
--- NOTE | 2024-07-16 15:14 | A.OFFVIS_ITS ---
Intake Visit Reasons: Remote ILR check- [employer]tronic Allergies Iodinated Contrast Media [IV Dye, Iodine Containing] Allergy (Severe, Verified 03/21/24 00:38) VASCULAR COLLAPSE and vascular spasm simvastatin [SIMVASTATIN] Allergy (Intermediate, Verified 07/11/24 13:08) MYALGIA vancomycin [VANCOMYCIN] Allergy (Intermediate, Verified 07/11/24 13:08) itching, rash and hives atorvastatin [ATORVASTATIN] Allergy (Mild, Verified 07/11/24 13:08) VISUAL HALOS clopidogrel [From Plavix] Adverse Reaction (Intermediate, Verified 03/21/24 00:38) Diarrhea [facility] Medical History ASVD (arteriosclerotic vascular disease) Glaucoma AAA (abdominal aortic aneurysm) Bicuspid aortic valve Benign prostate hyperplasia Trigger finger of all digits of left hand Raynauds phenomenon Blindness, sudden AV block Hypertension Surgical History Hx of cataract extraction History of surgery History of basal cell carcinoma excision History of appendectomy History of permanent cardiac pacemaker placement History of thyroidectomy Status post percutaneous patent foramen ovale closure Status post ascending aortic replacement History of aortic valve replacement Social History Housing: House Alcohol intake: current Alcohol intake frequency: a few times a week Alcohol type: beer Patient Tobacco Use Status: Never used Tobacco e-Cigarette/Vaping Use: Never Used Second Hand Smoke Exposure: No Use of substances other than those prescribed or required for medical reasons: No Have you been hit, kicked, punched, or otherwise hurt by someone within the past year? 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 No episodes of atrial fibrillation noted [id number] Cardiac Interrogation, subcut cardiac rhythm monitor Procedure code (CPT) selection complete Assessment & Plan Assessment & Plan (1) Implantable loop recorder present: Code(s): Z95.818 - Presence of other cardiac implants and grafts Category: Medical Plan: See above Coding Level of Care Code Procedure Only Diagnoses Implantable loop recorder present Z95.818 CPT Codes Cardiac Device Check - Cardiac Device 16: [id number] Cardiac Interrogation, subcut cardiac rhythm monitor ([id number])
== END ==
PROVIDERS: PCP Internal Medicine; Visit Provider Internal Medicine Cardiovascular Disease
DX: Z45.09 Encounter for adjustment and management of other cardiac device (principal)
CPT/HCPCS: 93298

== ENCOUNTER 2024-07-15 07:19 | Day surgery (SDC) | payer BC, SELFPAY ==
[2024-07-11 13:15] VITALS: BMI 30.5
[2024-07-15 07:52] VITALS: BP 143/63; PULSE 46; RESP 16; TEMP 36.1; O2SAT 100; BMI 31.6
[2024-07-15] MEDS: Lactated Ringers 1,000 ML 80 ML IVCONT (08:12)
--- NOTE | 2024-07-15 08:36 | MHC.SHP ---
Pre-Procedural Eval Section A - 24 Hr Update-Section A only Date of Service: 07/15/24 Section B - Complete if H&P > 30 days Chief Complaint: Other fecal abnormalities Details of Present Illness: see H&P no changes Relevant Family History (Specify if Yes): No Relevant Social History: None Present Medications: see Short Stay Collaborative assessment Medical History: No relevant PMH History of Previous Operations: No relevant previous surgery Allergies: Allergies Allergy/AdvReac Type Severity Reaction Status Date / Time Iodinated Contrast Media Allergy Severe VASCULAR Verified 03/21/24 00:38 [IV Dye, Iodine Containing] COLLAPSE and vascular spasm simvastatin [SIMVASTATIN] Allergy Intermediate MYALGIA Verified 07/11/24 13:08 vancomycin [VANCOMYCIN] Allergy Intermediate itching, Verified 07/11/24 13:08 rash and hives atorvastatin [ATORVASTATIN] Allergy Mild VISUAL Verified 07/11/24 13:08 HALOS clopidogrel [From Plavix] AdvReac Intermediate Diarrhea Verified 03/21/24 00:38 Review of Systems Sugical H&P ROS: Negative: Constitution, Cardiovascular, Respiratory, Neurological, Psychiatric, Hem-Onc, Allergic/Immunologic, Gastrointestinal, Genitourinary, Musculoskeletal, Integumentary, Endocrine and Eyes/Ears/Nose/Throat Exam Surgical H&P Exam: Normal: HEENT, Normal: Heart, Normal: Lungs, Normal: Extremities, Normal: Abdomen, Normal: Skin and Normal: Neurological Plan Diagnosis/Plan: Unchanged I have reviewed the history and physical and performed a pertinent physical examination on my patient. No changes have occurred unless specified. Time Spent With Patient Time: Total time managing care of this patient today ____ minutes.
--- NOTE | 2024-07-15 08:59 | HO.ANESPROP2 ---
HPI - Anesthesia Eval Consult details Narrative: colon screen [facility] Active Problems Active Problems: All Active Problems Blindness, sudden (Acute) High cholesterol (Acute) Macrocytosis (Acute) Change in vision (Acute) Visit for wound check (Acute) Implantable loop recorder present (Acute) Nonsustained ventricular tachycardia (Acute) Myalgia (Acute) Vitamin D insufficiency (Acute) Hard of hearing (Acute) Amaurosis fugax of right eye (Acute) Cardiac pacemaker (Acute) Hypothyroidism associated with surgical procedure (Acute) Familial hypercholesteremia (Acute) Cataract (Acute) Gout (Acute) ASVD (arteriosclerotic vascular disease) (Acute) Glaucoma (Acute) Benign prostate hyperplasia (Acute) Trigger finger of all digits of left hand (Acute) Raynauds phenomenon (Acute) AV block (Acute) Hypertension (Acute) Status post percutaneous patent foramen ovale closure (Acute) History of aortic valve replacement (Acute) Status post ascending aortic replacement (Acute) Past Medical History Medical History ASVD (arteriosclerotic vascular disease) Glaucoma AAA (abdominal aortic aneurysm) Bicuspid aortic valve Benign prostate hyperplasia Trigger finger of all digits of left hand Raynauds phenomenon Blindness, sudden AV block Hypertension Family History Family history of problems with anesthesia: No Surgical History Surgical History Hx of cataract extraction History of surgery History of basal cell carcinoma excision History of appendectomy History of permanent cardiac pacemaker placement History of thyroidectomy Status post percutaneous patent foramen ovale closure Status post ascending aortic replacement History of aortic valve replacement History of Problems with Anesthesia: No Social History Social History Housing: House Alcohol intake: current Alcohol intake frequency: a few times a week Alcohol type: beer Patient Tobacco Use Status: Never used Tobacco e-Cigarette/Vaping Use: Never Used Second Hand Smoke Exposure: No Use of substances other than those prescribed or required for medical reasons: No Have you been hit, kicked, punched, or otherwise hurt by someone within the past year? 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 needs: No Hearing needs: Yes (hearind aides) Vision needs: Yes (glasses) Meds Allergies Allergy/AdvReac Type Severity Reaction Status Date / Time Iodinated Contrast Media Allergy Severe VASCULAR Verified 03/21/24 00:38 [IV Dye, Iodine Containing] COLLAPSE and vascular spasm simvastatin [SIMVASTATIN] Allergy Intermediate MYALGIA Verified 07/11/24 13:08 vancomycin [VANCOMYCIN] Allergy Intermediate itching, Verified 07/11/24 13:08 rash and hives atorvastatin [ATORVASTATIN] Allergy Mild VISUAL Verified 07/11/24 13:08 HALOS clopidogrel [From Plavix] AdvReac Intermediate Diarrhea Verified 03/21/24 00:38 Active Medications: Current Medications Lactated Ringer's (Lr) 1,000 mls @ 80 mls/hr IVCONT .[id number] CARMELITA Last Admin: 07/15/24 08:12 Dose: 80 mls/hr Home Medications ?Medication ?Instructions ?Recorded ?Confirmed ?Last Taken ?Type aspirin 81 mg tablet,delayed 81 mg PO DAILY 12/28/21 07/11/24 Unknown History release latanoprost 0.005 % eye drops 1 drp ophthalmic (eye) BEDTIME 12/28/21 07/11/24 Unknown History cholecalciferol (vitamin D3) 25 25 mcg PO DAILY 09/19/22 07/11/24 Unknown History mcg (1,000 unit) capsule dorzolamide 22.3 mg-timolol 6.8 1 drp ophthalmic (eye) BID 09/19/22 07/11/24 Unknown History mg/mL eye drops celecoxib 200 mg capsule 200 mg PO DAILY 10/18/23 07/11/24 Unknown History levothyroxine 137 mcg tablet 137 mcg PO DAILY 03/26/24 07/11/24 Unknown History mecobalamin (vitamin B12) 1,000 1,000 mcg PO DAILY 03/26/24 07/11/24 Unknown History mcg chewable tablet Exam Height,Weight and Vital Signs: Height 5 ft 7 in Weight 91.626 kg Last Vital Signs Temp 97.0 F 07/15/24 07:52 Pulse 46 L 07/15/24 07:52 Resp 16 07/15/24 07:52 BP 143/63 H 07/15/24 07:52 Pulse Ox 100 07/15/24 07:52 O2 Del Method Room Air 07/15/24 07:52 Airway TM Dist: >3cm Neck ROM: Full Heart: rrr Lungs: cta Assessment and Plan Assessment Anesthesia Assessment: Anesthesia Plan Discussed Final Anesthetic Review Family History of Problems with Anesthesia: No History of Problems with Anesthesia: No NPO: Yes ASA Class: III Final Preanesthetic Review: No Changes in Pt Med Stat, Meds/Allgs Chart Reviewed, Consent Obtained/Reviewed and Anes Risks/Benef Reviewed Patient Risk: Intermediate Procedure Risk: Low Anesthetic Plan Anesthetic Plan: MAC: Disposition: Standard PACU
[2024-07-15 10:24] VITALS: BP 121/52; PULSE 50; RESP 14; TEMP 36.1; O2SAT 97
--- NOTE | 2024-07-15 10:35 | OP_ITS ---
DATE OF SERVICE: 07/15/2024 SURGEON: Gentry Avelar MD INDICATIONS: Abnormal findings in stool. PREOPERATIVE DIAGNOSIS: POSTOPERATIVE DIAGNOSIS: PROCEDURE PERFORMED: Colonoscopy to the terminal ileum. ESTIMATED BLOOD LOSS: COMPLICATIONS: ANESTHESIA: Monitored anesthesia care. ASSISTANTS: SPECIMENS: DESCRIPTION OF PROCEDURE: A history and physical was performed. The risks and benefits of the procedure were explained to the patient and informed consent was obtained. The patient was placed in the left lateral decubitus position. A digital rectal exam was performed and was found to be normal. The Olympus pediatric video colonoscope was introduced into the rectum and advanced to the cecum. The cecum was identified by transillumination, palpation, and identification of ileocecal valve. Examination was performed and the scope was removed. He tolerated the procedure well and was returned to recovery area in stable condition. FINDINGS: The terminal ileum was normal. The visualized colonic mucosa was normal. The quality of the prep was excellent. No polyps were identified. There was mild sigmoid diverticulosis with a single diverticulum in the right colon. Retroflexed examination showed moderately large internal hemorrhoids. IMPRESSION: Normal colonoscopy. RECOMMENDATIONS: 1. Follow up as needed. 2. Repeat screening colonoscopy is recommended in 10 years for average-risk individuals. This is optional based on age. MD BIB Barker/GERARDOL / [id number]
[2024-07-15 10:39] VITALS: BP 105/51; PULSE 58; RESP 18; TEMP 36.6; O2SAT 98
== END 2024-07-15 11:37 | disposition home or self-care (01) ==
PROVIDERS: PCP Internal Medicine; Visit Provider Internal Medicine Gastroenterology
PROC: 0DJD8ZZ Inspection of Lower Intestinal Tract, Via Natural or Artificial Opening Endoscopic (ICD-10-PCS; CPT 45378; principal; 2024-07-15 09:10)
DX: R19.5 Other fecal abnormalities (principal); Z83.719 Family history of colon polyps, unspecified; K57.30 Diverticulosis of large intestine without perforation or abscess without bleeding; K64.8 Other hemorrhoids; I70.90 Unspecified atherosclerosis; G45.3 Amaurosis fugax; I10 Essential (primary) hypertension; Z95.2 Presence of prosthetic heart valve; Z95.0 Presence of cardiac pacemaker; Z79.82 Long term (current) use of aspirin; Z79.899 Other long term (current) drug therapy; Z91.041 Radiographic dye allergy status; Z88.1 Allergy status to other antibiotic agents; Z88.8 Allergy status to other drugs, medicaments and biological substances; Z98.890 Other specified postprocedural states
CPT/HCPCS: 45378; J2704

== ENCOUNTER 2024-07-30 12:59 | Outpatient (REF) | payer SELFPAY ==
--- NOTE | 2024-07-30 14:05 | MHC.AU.HA1 ---
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 Has opted to proceed with new hearing aids, staying with RITE style. Only concern with demos was right dome felt too small, switched to large power dome on right ear with noted improvement of security of fit in office. Will continue to use demos until new hearing aids arrive. Discussed technology levels and noise management settings. Not in as many dynamic listening environments as in the past, work is primarily quiet. Opted for Active level technology and staying with battery-powered devices. Hearing Aid Prescription: Based on the individual?s shared listening needs, communication environments, dexterity, desire for connectivity, and personal preferences, the following prescription for amplification has been made: Right ear: Make, Model, Color: Phonak Audeo L70-312 Color: Silver De Le[place] Battery Size: 312 Tufter/Slim Tube: 2M Type of Earmold/Dome/CShell/SlimTip: Large power dome Left ear: Left ear prescription to be same as Right Hearing Aid above: Make, Model, Color: Phonak Audeo L70-312 Color: Silver [place] Le[place] Battery Size: 312 Tufter/Slim Tube: 2M Type of Earmold/Dome/CShell/SlimTip: Medium power dome Plan of Care: Patient wishes to purchase hearing aids as prescribed Action Taken/Action Needed: Hearing Instrument Fitting to be scheduled when materials arrive Primary Diagnosis: H90.A32 Mixed HL, Unilateral, Left Ear, W/Restricted Contralateral Secondary Diagnosis: H90.A21 SNHL, Unilateral Right Ear, W/Restricted Contralateral Hearing Signature: Provider: Kavin Olson, [facility]
== END 2024-07-30 13:00 | disposition home or self-care (01) ==
LOC: HO.HAP 12:59
PROVIDERS: Visit Provider Internal Medicine
DX: Z13.89 Encounter for screening for other disorder (principal)

== ENCOUNTER 2024-08-14 12:39 | Outpatient (REF) | payer SELFPAY ==
--- NOTE | 2024-08-14 13:29 | MHC.AU.HA2 ---
Hearing Instrument Fitting- Adult- Binaural Date of Visit: 08/14/24 Hearing Instruments Dispensed: Right Ear: Rasheed, Model, Color, Serial Number: Santos Ramirez [id number] SN: [id number] Color: Silver De León Office Technologist Repair Warranty: 08/29/2027 Office Technologist Loss and Damage Warranty: 08/29/2027 [facility] Service Plan: EMPLOYEE Battery Size: 312 Soft Metals Hand Engraver/Slim Tube: 2M Earmold/Dome/CShell/SlimTip: Medium power dome (no retention tail) Type of Wax Guard: CeruStop Left Ear: Rasheed, Model, Color, Serial Number: Santos Ramirez [id number] SN: [id number] Color: Silver De León Office Technologist Repair Warranty: 08/29/2027 Office Technologist Loss and Damage Warranty: 08/29/2027 [facility] Service Plan: EMPLOYEE Battery Size: 312 Soft Metals Hand Engraver/Slim Tube: 2M Earmold/Dome/CShell/SlimTip: Medium power dome (no retention tail) Type of Wax Guard: CeruStop Summary of Fitting: Returned loaners. Fit new hearing aids. Switched back to medium power dome on right ear, large dome felt too big. Ran feedback analyzer and real ear measures. Amplification significantly limited by feedback curve; however, good match to target until about 2 kHz. Slightly loud at real ear settings but willing to acclimate. Discussed possibility of custom earmolds again - concerned about use with stethoscope. Will continue with domes for now and readdress ear molds in future, if needed. Reviewed care and use, including VC (now rocker switch). Long time hearing aid user, familiar with general maintenance. No interest in bluetooth. Recommendations: Patient does not feel follow-up is necessary at this time - Will call if problems/concerns arise. Diagnosis Code(s): Primary Diagnosis: H90.A21 SNHL, Unilateral Right Ear, W/Restricted Contralateral Hearing Secondary Diagnosis: H90.A32 Mixed HL, Unilateral, Left Ear, W/Restricted Contralateral Signature: Provider: Kavin Olson, [facility]
== END 2024-08-14 12:40 | disposition home or self-care (01) ==
LOC: HO.HAP 12:39
PROVIDERS: Visit Provider Internal Medicine
DX: Z46.1 Encounter for fitting and adjustment of hearing aid (principal); H90.3 Sensorineural hearing loss, bilateral
CPT/HCPCS: V5261

== ENCOUNTER → 2024-08-15 23:59 | Outpatient (BNV) | payer BC, SELFPAY ==
--- NOTE | 2024-08-29 16:48 | MHC.OFFVIS ---
Intake Visit Reasons: Remote ILR check- Medtronic Allergies Iodinated Contrast Media [IV Dye, Iodine Containing] Allergy (Severe, Verified 03/21/24 00:38) VASCULAR COLLAPSE and vascular spasm simvastatin [SIMVASTATIN] Allergy (Intermediate, Verified 07/11/24 13:08) MYALGIA vancomycin [VANCOMYCIN] Allergy (Intermediate, Verified 07/11/24 13:08) itching, rash and hives atorvastatin [ATORVASTATIN] Allergy (Mild, Verified 07/11/24 13:08) VISUAL HALOS clopidogrel [From Plavix] Adverse Reaction (Intermediate, Verified 03/21/24 00:38) Diarrhea [facility] Medical History ASVD (arteriosclerotic vascular disease) Glaucoma AAA (abdominal aortic aneurysm) Bicuspid aortic valve Benign prostate hyperplasia Trigger finger of all digits of left hand Raynauds phenomenon Blindness, sudden AV block Hypertension Surgical History Hx of cataract extraction History of surgery History of basal cell carcinoma excision History of appendectomy History of permanent cardiac pacemaker placement History of thyroidectomy Status post percutaneous patent foramen ovale closure Status post ascending aortic replacement History of aortic valve replacement Social History Housing: House Alcohol intake: current Alcohol intake frequency: a few times a week Alcohol type: beer Patient Tobacco Use Status: Never used Tobacco e-Cigarette/Vaping Use: Never Used Second Hand Smoke Exposure: No service: No 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 I was requested to read this study on 08/27/2024. No episodes of atrial fibrillation noted. Presented rhythm shows sinus rhythm. [id number] Cardiac Interrogation, subcut cardiac rhythm monitor Procedure code (CPT) selection complete Assessment & Plan Assessment & Plan (1) Implantable loop recorder present: Code(s): Z95.818 - Presence of other cardiac implants and grafts Category: Medical Plan: See above Coding Level of Care Code Procedure Only Diagnoses Implantable loop recorder present Z95.818 CPT Codes Cardiac Device Check - Cardiac Device 16: [id number] Cardiac Interrogation, subcut cardiac rhythm monitor ([id number])
== END ==
PROVIDERS: PCP Internal Medicine; Visit Provider Internal Medicine Cardiovascular Disease
DX: Z45.09 Encounter for adjustment and management of other cardiac device (principal)
CPT/HCPCS: 93298

== ENCOUNTER → 2024-09-15 23:59 | Outpatient (BNV) | payer BC, SELFPAY ==
--- NOTE | 2024-09-22 17:02 | A.OFFVIS_ITS ---
Intake Visit Reasons: Remote ILR check- [employer] Allergies Iodinated Contrast Media [IV Dye, Iodine Containing] Allergy (Severe, Verified 03/21/24 00:38) VASCULAR COLLAPSE and vascular spasm simvastatin [SIMVASTATIN] Allergy (Intermediate, Verified 07/11/24 13:08) MYALGIA vancomycin [VANCOMYCIN] Allergy (Intermediate, Verified 07/11/24 13:08) itching, rash and hives atorvastatin [ATORVASTATIN] Allergy (Mild, Verified 07/11/24 13:08) VISUAL HALOS clopidogrel [From Plavix] Adverse Reaction (Intermediate, Verified 03/21/24 00:38) Diarrhea [facility] Medical History ASVD (arteriosclerotic vascular disease) Glaucoma AAA (abdominal aortic aneurysm) Bicuspid aortic valve Benign prostate hyperplasia Trigger finger of all digits of left hand Raynauds phenomenon Blindness, sudden AV block Hypertension Surgical History Hx of cataract extraction History of surgery History of basal cell carcinoma excision History of appendectomy History of permanent cardiac pacemaker placement History of thyroidectomy Status post percutaneous patent foramen ovale closure Status post ascending aortic replacement History of aortic valve replacement Social History Housing: House Alcohol intake: current Alcohol intake frequency: a few times a week Alcohol type: beer Patient Tobacco Use Status: Never used Tobacco e-Cigarette/Vaping Use: Never Used Second Hand Smoke Exposure: No service: No 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 No episodes of atrial fibrillation noted [id number] Cardiac Interrogation, subcut cardiac rhythm monitor Procedure code (CPT) selection complete Assessment & Plan Assessment & Plan (1) Implantable loop recorder present: Code(s): Z95.818 - Presence of other cardiac implants and grafts Category: Medical Plan: See above Coding Level of Care Code Procedure Only Diagnoses Implantable loop recorder present Z95.818 CPT Codes Cardiac Device Check - Cardiac Device 16: [id number] Cardiac Interrogation, subcut cardiac rhythm monitor ([id number])
== END ==
PROVIDERS: PCP Internal Medicine; Visit Provider Internal Medicine Cardiovascular Disease
DX: Z45.09 Encounter for adjustment and management of other cardiac device (principal)
CPT/HCPCS: 93298

== ENCOUNTER 2024-10-01 08:27 | Outpatient (AMB) | payer BC, SELFPAY ==
--- NOTE | 2024-10-01 08:32 | MHC.OFFVIS ---
Vital Signs 10/01/24 08:33 Height 5 ft 7 in Weight 196 lb 3.382 oz BMI 30.7 BP 110/70 Blood Pressure Location Lt brachial Position Sitting Pulse 82 Intake Visit Reasons: 6m follow up/ device ck Intake Note: 6 month follow-up with ekg and Medtronic Manager Safe Required: No Allergies Iodinated Contrast Media [IV Dye, Iodine Containing] Allergy (Severe, Verified 03/21/24 00:38) VASCULAR COLLAPSE and vascular spasm simvastatin [SIMVASTATIN] Allergy (Intermediate, Verified 07/11/24 13:08) MYALGIA vancomycin [VANCOMYCIN] Allergy (Intermediate, Verified 07/11/24 13:08) itching, rash and hives atorvastatin [ATORVASTATIN] Allergy (Mild, Verified 07/11/24 13:08) VISUAL HALOS clopidogrel [From Plavix] Adverse Reaction (Intermediate, Verified 03/21/24 00:38) Diarrhea Medication List - Last Reconciled 10/01/24 by Ad Gallardo MD allopurinol 300 mg PO DAILY aspirin 81 mg PO DAILY celecoxib 200 mg PO DAILY cholecalciferol (vitamin D3) 25 mcg PO DAILY cyclobenzaprine 10 mg PO BEDTIME PRN dorzolamide-timolol 22.3-6.8 mg/mL 1 drp ophthalmic (eye) BID ezetimibe 10 mg PO DAILY latanoprost 0.005% 1 drp ophthalmic (eye) BEDTIME levothyroxine 137 mcg PO DAILY mecobalamin (vitamin B12) 1,000 mcg PO DAILY metoprolol succinate ER 100 mg PO BID rosuvastatin 10 mg (1/2 x 20 mg) PO DAILY ticagrelor (Brilinta) 60 mg PO BID valsartan-hydrochlorothiazide 160-12.5 mg 1 tab PO DAILY HPI Comments Details: Shashank comes for follow-up. He has been doing well from cardiac perspective. He denies any new cardiac symptoms. Recently at back injury currently focusing on more muscle strengthening and core exercises. He had also starting walking more. Recently notice when he climbed 2 flights of stairs while talking he did get short of breath at the top. Otherwise on level ground he has no shortness of breath. No orthopnea, PND, leg edema. No chest pain. No prolonged palpitation irregular heartbeat. Implantable loop recorder has shown no significant arrhythmias such as atrial fibrillation. Tolerating his medications well. COUNTS INCLUDE 234 BEDS AT THE [facility] Medical History ASVD (arteriosclerotic vascular disease) Glaucoma AAA (abdominal aortic aneurysm) Bicuspid aortic valve Benign prostate hyperplasia Trigger finger of all digits of left hand Raynauds phenomenon Blindness, sudden AV block Hypertension Surgical History Hx of cataract extraction History of surgery History of basal cell carcinoma excision History of appendectomy History of permanent cardiac pacemaker placement History of thyroidectomy Status post percutaneous patent foramen ovale closure Status post ascending aortic replacement History of aortic valve replacement Social History Housing: House Alcohol intake: current Alcohol intake frequency: a few times a week Alcohol type: beer Patient Tobacco Use Status: Never used Tobacco e-Cigarette/Vaping Use: Never Used Second Hand Smoke Exposure: No service: No 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 occupational status: employed and 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 needs: No Hearing needs: Yes (hearind aides) Vision needs: Yes (glasses) Review of Systems Const Denies chills, Denies fatigue, Denies fever(s), Denies frequent falls, Denies weakness, Denies weight gain and Denies weight loss ENT Denies dizziness Card Denies chest pain, Denies leg edema, Denies lightheadedness, Denies palpitations, Denies dyspnea, Denies dyspnea on exertion, Denies orthopnea and Denies other (loss of consciousness) Resp Denies cough, Denies dyspnea and Denies dyspnea on exertion GI Denies hematochezia and Denies change in stool character Musc Denies abnormal gait, Denies muscle weakness, Denies numbness, Denies radiating pain into limb and Denies tingling Neuro Denies abnormal gait, Denies dizziness, Denies frequent falls, Denies numbness, Denies tingling and Denies weakness Endo Denies fatigue and Denies palpitations Physical Exam Vital Signs: Last Vital Signs Pulse 82 10/01/24 08:33 BP 110/70 10/01/24 08:33 BMI result Body Mass Index 30.7 Const General: cooperative, comfortable, no acute distress, alert and awake Nutritional Appearance: obese Orientation/consciousness: patient oriented x3 Limitations: no limitations Neck Neck: Yes trachea midline, Yes supple and Yes no JVD Carotids: normal carotid upstroke and no bruits Resp Effort & Inspection: normal respiratory effort Auscultation: bronchovesicular breath sounds on the right (Posterior lung field) Cardio Jugular venous distension: no JVD Palpation: normal PMI Rate: regular rate Rhythm: regular rhythm Heart sounds: S1 normal heart sound present, S2 normal heart sound present, no click, no gallops and Murmur heart sound present systolic early, decrescendo and crescendo GI Auscultation: normal bowel sounds Skin General skin exam: no rashes or lesions noted Neuro General: patient oriented x3 and no focal motor deficits Extrem General: Yes no clubbing, cyanosis or edema Psych Appearance: grossly normal Office Procedures Cardiac Device Check Cardiac Device Check Details: Single-chamber Saint Shan pacemaker in place. Programmed in VVI at 40 beats per minute. Minimal ventricular pacing. Ventricular sensing is excellent. Ventricular capture thresholds are stable. Lead impedance is stable. No significant arrhythmias detected. Battery life is at about 5 and half years [id number] Cardiac Device Check, leadless/single lead pacemaker Procedure code (CPT) selection complete EKG Details: Normal sinus rhythm with PACs with right bundle-branch block with septal QS pattern [id number], Complete Assessment & Plan Assessment & Plan (1) History of aortic valve replacement: Comment: Aortic stenosis secondary to bicuspid aortic valve undergoing repair at age 14 at [facility]. Followed by in 1990 undergoing Saint Shan 23 mm aortic valve replacement at [facility] for stenosis. Surgery was complicated at that time with RV laceration, which had to be repaired. 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 Currently clinically seems to be working well. Continue current dual antiplatelet therapy given his aortic atherosclerosis to reduce risk of recurrent TIA. Has no evidence of atrial fibrillation. Continue SBE prophylaxis as per ACC/aha guidelines. Continue risk factor modification. Follow-up echocardiogram in 6 months time. (2) Status post percutaneous patent foramen ovale closure: Code(s): Z87.74 - Personal history of (corrected) congenital malformations of heart and circulatory system Category: Surgical Plan: Status post PFO closure for TIA in the past. Currently without any recurrent symptoms although had transient visual loss which has not recurred on dual antiplatelet therapy. Continue the same. No indication for oral anticoagulation therapy. (3) Cardiac pacemaker: Code(s): Z95.0 - Presence of cardiac pacemaker Category: Medical Plan: Cardiac pacemaker in-situ, put in after 2nd surgery, only ventricular lead was placed. Minimal ventricular pacing. Pacemaker is working well. Will follow up in 6 months time. (4) Implantable loop recorder present: Code(s): Z95.818 - Presence of other cardiac implants and grafts Category: Medical Plan: Implantable loop recorder in place for possibility of atrial fibrillation. No episodes of atrial fibrillation noted. Will monitor for 6 more months. If there are no further episodes of atrial fibrillation will consider explantation of the loop recorder. Will follow up in the clinic in 6 months time, sooner p.r.n.. Thank you for allowing me to partake in his care Orders: Orders CA echo transthoracic complete 6 Months Z95.2 - Presence of prosthetic heart valve Coding Level of Care Code Est Pt Level 4 (12961) Complex EM visit Add On G2211 Diagnoses History of aortic valve replacement Z95.2 Status post percutaneous patent foramen ovale closure Z87.74 Cardiac pacemaker Z95.0 Implantable loop recorder present Z95.818 CPT Codes Cardiac Device Check - Cardiac Device 1: 23661-RM Cardiac Device Check, leadless/single lead pacemaker ([id number]) EKG - CPT: 30527-Fuqdechmjgyimwugd, Complete ([id number])
[2024-10-01 08:33] VITALS: BP 110/70; PULSE 82; BMI 30.7
== END 2024-10-01 09:03 | disposition home or self-care (01) ==
PROVIDERS: PCP Internal Medicine; Visit Provider Internal Medicine Cardiovascular Disease
DX: Z87.74 Personal history of (corrected) congenital malformations of heart and circulatory system (principal); Z95.0 Presence of cardiac pacemaker; Z95.2 Presence of prosthetic heart valve; Z95.818 Presence of other cardiac implants and grafts
CPT/HCPCS: 93010; 93279; 99214

== ENCOUNTER → 2024-10-01 08:27 | Outpatient (BNVA) | payer BC, SELFPAY | PROVIDERS: PCP Internal Medicine; Visit Provider Internal Medicine Cardiovascular Disease | DX: Z95.2 Presence of prosthetic heart valve (principal); Z45.018 Encounter for adjustment and management of other part of cardiac pacemaker; Z95.818 Presence of other cardiac implants and grafts; Z86.73 Personal history of transient ischemic attack (TIA), and cerebral infarction without residual deficits; Z87.74 Personal history of (corrected) congenital malformations of heart and circulatory system | CPT/HCPCS: 93005 ==

== ENCOUNTER 2024-10-02 14:19 | Outpatient (AMB) | payer SELFPAY ==
--- NOTE | 2024-10-02 14:22 | MHC.PC.OV ---
Vital Signs 10/02/24 14:24 Height 5 ft 7 in Weight 197 lb 4 oz BMI 30.9 BP 100/62 Blood Pressure Location Lt brachial Position Sitting Pulse 71 Pulse Source Pulse Oximeter Pulse Oximetry (%) 92 Oxygen Delivery Method Room Air Intake Visit Reasons: Follow Up Intake Note: Patient is here to follow up on HTN, BPH, Hypercholesterolemia. Supervisor Border Department Required: No Park Maintenance Technician: Not Required per policy Accompanied by: Self / Same As Patient Allergies Iodinated Contrast Media [IV Dye, Iodine Containing] Allergy (Severe, Verified 10/05/24 14:52) VASCULAR COLLAPSE and vascular spasm simvastatin [SIMVASTATIN] Allergy (Intermediate, Verified 10/05/24 14:52) MYALGIA vancomycin [VANCOMYCIN] Allergy (Intermediate, Verified 10/05/24 14:52) itching, rash and hives atorvastatin [ATORVASTATIN] Allergy (Mild, Verified 10/05/24 14:52) VISUAL HALOS clopidogrel [From Plavix] Adverse Reaction (Intermediate, Verified 10/05/24 14:52) Diarrhea Medication List - Last Reconciled 10/05/24 by Anthony Hewitt MD allopurinol 300 mg PO DAILY aspirin 81 mg PO DAILY celecoxib 200 mg PO DAILY cholecalciferol (vitamin D3) 25 mcg PO DAILY cyclobenzaprine 10 mg PO BEDTIME PRN dorzolamide-timolol 22.3-6.8 mg/mL 1 drp ophthalmic (eye) BID ezetimibe 10 mg PO DAILY latanoprost 0.005% 1 drp ophthalmic (eye) BEDTIME levothyroxine 137 mcg PO DAILY mecobalamin (vitamin B12) 1,000 mcg PO DAILY metoprolol succinate ER 100 mg PO BID rosuvastatin 10 mg (1/2 x 20 mg) PO DAILY ticagrelor (Brilinta) 60 mg PO BID valsartan-hydrochlorothiazide 160-12.5 mg 1 tab PO DAILY Tobacco use date assessed: 10/02/24 Fall risk assessment: No Falls in past year Last assessed Fall Risk: 10/02/24 Dental Screening Dental Screen Date: 02/21/24 HPI Follow Up HPI Details 74-year-old male presents to the office for a follow-up visit. Since last office visit, he is doing much better. Pain symptoms it is lower back has subsided. Patient admits that he has benefitted tremendously from the physical therapy. Continues to take the muscle relaxant. He has also cut down his daily wine consumption, physically active and continues to work and do activities of daily living. Would like to get his TSH checked. [facility] Medical History ASVD (arteriosclerotic vascular disease) Glaucoma AAA (abdominal aortic aneurysm) Bicuspid aortic valve Benign prostate hyperplasia Trigger finger of all digits of left hand Raynauds phenomenon Blindness, sudden AV block Hypertension Surgical History Hx of cataract extraction History of surgery History of basal cell carcinoma excision History of appendectomy History of permanent cardiac pacemaker placement History of thyroidectomy Status post percutaneous patent foramen ovale closure Status post ascending aortic replacement History of aortic valve replacement Social History Housing: House Alcohol intake: current Alcohol intake frequency: a few times a week Alcohol type: beer Patient Tobacco Use Status: Never used Tobacco e-Cigarette/Vaping Use: Never Used Second Hand Smoke Exposure: No service: No 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 How many drinks containing alcohol do you have on a typical day when you are drinking?: 1 or 2 3. How often do you have six or more drinks on one occasion?: Never Total Score: 0 WARREN-7 AMB Questionnaire WARREN-7 Date WARREN - 7 assessed: 02/21/24 Source: Developed by Drs. Gurjit Ledezma, Sara Christianson, Enrique Solano and colleagues, with an educational diego from [employer]. Physical exam (Primary Care) Vital Signs: Last Vital Signs Pulse 71 10/02/24 14:24 BP 100/62 10/02/24 14:24 Pulse Ox 92 10/02/24 14:24 Oxygen Delivery Method Room Air 10/02/24 14:24 BMI result Body Mass Index 30.9 Tobacco/Smoking Status: Tobacco use Status Tobacco use date assessed 10/02/24 10/02/24 14:25 Patient Tobacco Use Status Never used Tobacco 10/02/24 14:25 e-Cigarette/Vaping Use Never Used 10/02/24 14:25 Thrive Assessment: Date of Thrive Assessment Date Thrive assessed 02/21/24 10/02/24 14:25 Const General: cooperative and healthy appearing Nutritional Appearance: well nourished Orientation/consciousness: patient oriented x3 Limitations: no limitations HENMT Head: Yes normal to inspection Eyes General: appearance normal, both eyes and all related structures Neck Neck: Yes normal visual inspection Chest Chest palpation & inspection: normal palpation of entire chest wall Resp Effort & Inspection: normal respiratory effort Neuro General: patient oriented x3 Coding Level of Care Code Est Pt Level 3 (35448) Complex EM visit Add On G2211 Diagnoses Hypothyroidism associated with surgical procedure E89.0 Assessment & Plan Assessment & Plan (1) Hypothyroidism associated with surgical procedure: Code(s): E89.0 - Postprocedural hypothyroidism Category: Medical Plan: Blood work has been ordered. Based started, thyroid irritation will be adjusted. Patient was advised to continue exercises and physical therapy.
[2024-10-02 14:24] VITALS: BP 100/62; PULSE 71; O2SAT 92; BMI 30.9
== END 2024-10-02 14:51 | disposition home or self-care (01) ==
PROVIDERS: PCP Internal Medicine; Visit Provider Internal Medicine
DX: E89.0 Postprocedural hypothyroidism (principal)

== ENCOUNTER → 2024-10-02 14:19 | Outpatient (BNVA) | payer SELFPAY | PROVIDERS: PCP Internal Medicine; Visit Provider Internal Medicine | DX: E89.0 Postprocedural hypothyroidism (principal) | CPT/HCPCS: 99212 ==

== ENCOUNTER 2024-10-13 12:58 | Outpatient (RCR) | payer BC, SELFPAY ==
[2024-08-19 14:01] VITALS: BP 112/58; PULSE 51
--- NOTE | 2024-08-19 15:17 | MHC.PT.EP ---
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 He reports of having sudden onset of back pain about 6 weeks back while playing golf. He rotated his body to the L and felt sharp pain on R SIJ. His pain got worse and ended up having spasm on R paraspinals. On PT examination he presented with no TTP, 4/10 pain over R SI and R groin, decreased lumbar ROM, decreased muscle strength, altered posture, gait and SI symmetry. He lives with his and is independent with ADLS however has pain with them. 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 He would benefit from skilled PT to address the aforementioned impairments and improve tolerance to functional activities. Frequency and Duration: The patient will be seen 2/week for 5 weeks Short Term Goals: 1. Pt will have 50% decrease in pain which will enable him to tolerate supine lying in 2 weeks. 2. Pt will be able to move his trunk through all planes of motion to dress his upper and lower body in 3 weeks. Realty Loan Specialist Goals: 1. Pt will demonstrate an increase in muscle strength by 1 grade which will enable him to tolerate standing and walking without pain in 5 weeks. 2. Pt will be independent with all HEP for symptom management an maintenance following d/c in 5 weeks. Treatment Plan: Modalities to reduce pain, spasms and effusion. Manual therapy to restore motion and function. Therapeutic exercise to improve strength and flexibility. Neuromuscular re-education for posture and balance. Therapeutic activities to return to functional activities of daily living. Electronically signed by: Mar Corado PT DPT Please sign and return to therapist. Thank you for your referral.
--- NOTE | 2024-10-13 14:12 | MHC.PT.DC ---
[facility] [place] Office [place] Office [place] Office [address] [place] [address] [phone] F: [phone] F: [phone] F: [phone] F: [phone] Physical Therapy Discharge Report Diagnosis: Pain in thoracic spine Lower thoracic back pain, lumbar strain, exercises for lower back and L SI joint Date of Surgery: NA Date of Evaluation: 08/19/24 Date of Discharge: 10/13/24 Treatments to Date: 11 Cancellations to Date: 0 No Shows to Date: 0 Discharge Status: Achieved Goals Improved Function Independent with HEP Discharge Summary: 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 He has completed 11 PT visits and has achieved all goals set for him. He is independent with all HEP and has returned to OF. He is therefore being d/c from PT. He was in agreement with the plan. I reviewed all HEP and educated him on importance of continuing exercises. Electronically signed by: Mar Corado, PT DPT Please sign and return to therapist. Thank you for your referral.
== END 2024-10-13 14:12 | disposition home or self-care (01) ==
LOC: HO.PT 12:58
PROVIDERS: PCP Internal Medicine; Visit Provider Internal Medicine
DX: M54.6 Pain in thoracic spine (principal)
CPT/HCPCS: 97110; 97112; 97140; 97161; 97530

== ENCOUNTER → 2024-10-16 23:59 | Outpatient (BNV) | payer SELFPAY ==
--- NOTE | 2024-10-28 16:21 | MHC.OFFVIS ---
Intake Visit Reasons: Remote ILR check- [employer] Allergies Iodinated Contrast Media [IV Dye, Iodine Containing] Allergy (Severe, Verified 10/05/24 14:52) VASCULAR COLLAPSE and vascular spasm simvastatin [SIMVASTATIN] Allergy (Intermediate, Verified 10/05/24 14:52) MYALGIA vancomycin [VANCOMYCIN] Allergy (Intermediate, Verified 10/05/24 14:52) itching, rash and hives atorvastatin [ATORVASTATIN] Allergy (Mild, Verified 10/05/24 14:52) VISUAL HALOS clopidogrel [From Plavix] Adverse Reaction (Intermediate, Verified 10/05/24 14:52) Diarrhea [facility] Medical History ASVD (arteriosclerotic vascular disease) Glaucoma AAA (abdominal aortic aneurysm) Bicuspid aortic valve Benign prostate hyperplasia Trigger finger of all digits of left hand Raynauds phenomenon Blindness, sudden AV block Hypertension Surgical History Hx of cataract extraction History of surgery History of basal cell carcinoma excision History of appendectomy History of permanent cardiac pacemaker placement History of thyroidectomy Status post percutaneous patent foramen ovale closure Status post ascending aortic replacement History of aortic valve replacement Social History Housing: House Alcohol intake: current Alcohol intake frequency: a few times a week Alcohol type: beer Patient Tobacco Use Status: Never used Tobacco e-Cigarette/Vaping Use: Never Used Second Hand Smoke Exposure: No service: No 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 No episodes of atrial fibrillation or pauses noted. [id number] Cardiac Interrogation, subcut cardiac rhythm monitor Procedure code (CPT) selection complete Assessment & Plan Assessment & Plan (1) Implantable loop recorder present: Code(s): Z95.818 - Presence of other cardiac implants and grafts Category: Medical Plan: See above Coding Level of Care Code Procedure Only Diagnoses Implantable loop recorder present Z95.818 CPT Codes Cardiac Device Check - Cardiac Device 16: [id number] Cardiac Interrogation, subcut cardiac rhythm monitor ([id number])
== END ==
PROVIDERS: PCP Internal Medicine; Visit Provider Internal Medicine Cardiovascular Disease
DX: Z45.09 Encounter for adjustment and management of other cardiac device (principal)
CPT/HCPCS: 93298

== ENCOUNTER → 2024-11-16 23:59 | Outpatient (BNV) | payer BC, SELFPAY ==
--- NOTE | 2024-11-18 16:14 | MHC.OFFVIS ---
Intake Visit Reasons: Remote ILR check- Medtronic Allergies Iodinated Contrast Media [IV Dye, Iodine Containing] Allergy (Severe, Verified 10/05/24 14:52) VASCULAR COLLAPSE and vascular spasm simvastatin [SIMVASTATIN] Allergy (Intermediate, Verified 10/05/24 14:52) MYALGIA vancomycin [VANCOMYCIN] Allergy (Intermediate, Verified 10/05/24 14:52) itching, rash and hives atorvastatin [ATORVASTATIN] Allergy (Mild, Verified 10/05/24 14:52) VISUAL HALOS clopidogrel [From Plavix] Adverse Reaction (Intermediate, Verified 10/05/24 14:52) Diarrhea [facility] Medical History ASVD (arteriosclerotic vascular disease) Glaucoma AAA (abdominal aortic aneurysm) Bicuspid aortic valve Benign prostate hyperplasia Trigger finger of all digits of left hand Raynauds phenomenon Blindness, sudden AV block Hypertension Surgical History Hx of cataract extraction History of surgery History of basal cell carcinoma excision History of appendectomy History of permanent cardiac pacemaker placement History of thyroidectomy Status post percutaneous patent foramen ovale closure Status post ascending aortic replacement History of aortic valve replacement Social History Housing: House Alcohol intake: current Alcohol intake frequency: a few times a week Alcohol type: beer Patient Tobacco Use Status: Never used Tobacco e-Cigarette/Vaping Use: Never Used Second Hand Smoke Exposure: No service: No 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 No atrial fibrillation or pauses noted [id number] Cardiac Interrogation, subcut cardiac rhythm monitor Procedure code (CPT) selection complete Assessment & Plan Assessment & Plan (1) Implantable loop recorder present: Code(s): Z95.818 - Presence of other cardiac implants and grafts Category: Medical Plan: See above Coding Level of Care Code Procedure Only Diagnoses Implantable loop recorder present Z95.818 CPT Codes Cardiac Device Check - Cardiac Device 16: [id number] Cardiac Interrogation, subcut cardiac rhythm monitor ([id number])
== END ==
PROVIDERS: PCP Internal Medicine; Visit Provider Internal Medicine Cardiovascular Disease
DX: Z45.09 Encounter for adjustment and management of other cardiac device (principal)
CPT/HCPCS: 93298

== ENCOUNTER 2024-11-18 07:40 | Outpatient (REF) | payer BC, SELFPAY ==
[2024-11-18 08:37] LABS: Hematocrit 39.5 % (42.0-52.0); Hemoglobin 13.1 g/dl (14.0-18.0); Mean Corpuscular HGB Conc 33.2 g/dl (31.0-36.0); Mean Corpuscular Hemoglobin 33.6 pg (27.0-33.0); Mean Corpuscular Volume 101.3 fL (80.0-98.0); Mean Platelet Volume 10.2 fL (9.4-12.4); Platelet Count 181 X10*3/uL (160-400); Red Cell Distribution Width 14.2 % (11.0-16.0); White Blood Count 7.4 X10*3/uL (4.8-10.8)
[2024-11-18 08:53] LABS: Appearance Urine Clear; Color Urine Yellow; Glucose Urine UA Negative (Negative); Leukocyte Esterase Urine Negative (Negative); Nitrite Urine Negative (Negative); Urine Blood Negative (Negative); Urine Ketones Negative (Negative); Urine Protein Negative (Neg-Trace)
[2024-11-18 09:25] LABS: Alanine Aminotransferase 45 U/L (0-40); Albumin Level 4.1 g/dL (3.5-5.0); Alkaline Phosphatase 95 U/L (39-117); Anion Gap 11 (12-20); Aspartate Amino Transferase 40 U/L (5-37); Bilirubin Direct 0.2 mg/dL (0.0-0.5); Bilirubin Total 0.6 mg/dL (0.0-1.0); Blood Urea Nitrogen 22 mg/dL (9-16); Calcium 9.3 mg/dL (8.4-10.2); Carbon Dioxide 24 mmol/L (22-29); Chloride 111 mmol/L (96-108); Cholesterol 137 mg/dL (<200); Estimated Glomerular Filt Rate > 60; Glucose Random 103 mg/dL (60-115); HDL Cholesterol 60 mg/dL (>40); LDL Cholesterol Calculated 57 mg/dL (<100); Potassium 5.2 mmol/L (3.3-5.1); Sodium 141 mmol/L (135-145); Total Protein 6.4 g/dL (6.5-8.0); Triglycerides 100 mg/dL (<150)
[2024-11-18 09:41] LABS: Thyroid Stimulating Hormone 0.02 uIU/mL (0.32-4.0)
== END 2024-11-18 07:41 | disposition home or self-care (01) ==
LOC: HO.LAB 07:40
PROVIDERS: PCP Internal Medicine; Visit Provider Internal Medicine
DX: E89.0 Postprocedural hypothyroidism (principal); I47.29 Other ventricular tachycardia; E78.00 Pure hypercholesterolemia, unspecified; I10 Essential (primary) hypertension
CPT/HCPCS: 36415; 80048; 80061; 80076; 81003; 84443; 85027

== ENCOUNTER → 2024-12-17 23:59 | Outpatient (BNV) | payer BC, SELFPAY ==
--- NOTE | 2024-12-24 11:41 | A.OFFVIS_ITS ---
Intake Visit Reasons: Remote ILR check- [employer] Allergies Iodinated Contrast Media [IV Dye, Iodine Containing] Allergy (Severe, Verified 10/05/24 14:52) VASCULAR COLLAPSE and vascular spasm simvastatin [SIMVASTATIN] Allergy (Intermediate, Verified 10/05/24 14:52) MYALGIA vancomycin [VANCOMYCIN] Allergy (Intermediate, Verified 10/05/24 14:52) itching, rash and hives atorvastatin [ATORVASTATIN] Allergy (Mild, Verified 10/05/24 14:52) VISUAL HALOS clopidogrel [From Plavix] Adverse Reaction (Intermediate, Verified 10/05/24 14:52) Diarrhea [facility] Medical History ASVD (arteriosclerotic vascular disease) Glaucoma AAA (abdominal aortic aneurysm) Bicuspid aortic valve Benign prostate hyperplasia Trigger finger of all digits of left hand Raynauds phenomenon Blindness, sudden AV block Hypertension Surgical History Hx of cataract extraction History of surgery History of basal cell carcinoma excision History of appendectomy History of permanent cardiac pacemaker placement History of thyroidectomy Status post percutaneous patent foramen ovale closure Status post ascending aortic replacement History of aortic valve replacement Social History Housing: House Alcohol intake: current Alcohol intake frequency: a few times a week Alcohol type: beer Patient Tobacco Use Status: Never used Tobacco e-Cigarette/Vaping Use: Never Used Second Hand Smoke Exposure: No service: No 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 No pauses or atrial fibrillation noted. [id number] Cardiac Interrogation, subcut cardiac rhythm monitor Procedure code (CPT) selection complete Assessment & Plan Assessment & Plan (1) Implantable loop recorder present: Code(s): Z95.818 - Presence of other cardiac implants and grafts Category: Medical Plan: See above Coding Level of Care Code Procedure Only Diagnoses Implantable loop recorder present Z95.818 CPT Codes Cardiac Device Check - Cardiac Device 16: 40616-[id number] Cardiac Interrogation, subcut cardiac rhythm monitor ([id number])
== END ==
PROVIDERS: PCP Internal Medicine; Visit Provider Internal Medicine Cardiovascular Disease
DX: Z45.09 Encounter for adjustment and management of other cardiac device (principal)
CPT/HCPCS: 93298

== ENCOUNTER 2025-01-07 07:15 | Outpatient (REF) | payer BC, SELFPAY ==
--- OUTSIDE RECORDS SUMMARY | 2025-01-07 07:17 | XMS_ITS | Clinical Summary ---
Author Organization [facility] Address [address] [place] [address] Care Team Providers Care Hat Presser Name Role Phone Unavailable Primary Care Provider Unavailabl e Allergies Active Allergy Reactions Criticality Noted Date Comments Iodinated Contrast Media Other (See Comments) High 02/19/2018 VASCULAR SPASMS Vancomycin Rash Low 02/19/2018 Medications Medication Sig Dispensed Refills Start Date End Date Status levothyroxine (SYNTHROID, LEVOXYL) tablet 137 mcg TAKE 1 TABLET ON SUNDAY,SUN, SUNDAY, SUNDAY + SUNDAY AND TAKE 1 + 1/2 TAB ON SUNDAY AND SUNDAY 4 12/15/2017 Active allopurinol (ZYLOPRIM) 300 MG tablet Take 300 mg by mouth daily. 4 12/06/2017 Active latanoprost (XALATAN) 0.005 % ophthalmic solution INSTILL 1 DROP INTO THE LEFT EYE AT BEDTIME 11 01/18/2018 Active metoprolol succinate (TOPROL-XL) 24 hr tablet 100 mg Take 150 mg by mouth daily. 11 2018 Active rosuvastatin (CRESTOR) tablet 10 mg Take 10 mg by mouth daily. 0 Active Naproxen Sodium (ALEVE) 220 MG CAPS Take by mouth 2 (two) times a day. ONE OR TWO UP TO BID 0 Active aspirin 81 MG tabletIndications:HEA RT VALVE Take 81 mg by mouth daily. 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 Essential hypertension 02/19/2018 Idiopathic gout 02/19/2018 Social History Tobacco Use Types Packs/Day Years Used Date Smoking Tobacco: Never Smokeless Tobacco: Never Sex and Gender Information Value Date Recorded Sex Assigned at Not on file Gender Identity Not on file Sexual Orientation Not on file Last Filed Vital Signs Vital Sign Reading Time Taken Comments Blood Pressure 106/70 02/19/2018 11:24 AM EDT Pulse 57 02/19/2018 11:24 AM EDT Temperature - - Respiratory Rate - - Oxygen Saturation 96% 02/19/2018 11:24 AM EDT Inhaled Oxygen Concentration - - Weight 95.3 kg (210 lb) 02/19/2018 11:24 AM EDT Height 170.2 cm (5' 7 ) 02/19/2018 11:24 AM EDT Body Mass Index 32.89 02/19/2018 11:24 AM EDT Plan of Treatment Health Maintenance Due Date Last Done Comments Hepatitis C Screening 1950 COVID-19 Vaccine (#1) 1950 Depression Screening 1961 Preventative Health Evaluation 1967 DTap / Tdap / Td (1 - Tdap) 01/27/1968 Colon Cancer Screening (Colonoscopy) 1994 Shingrix-Zoster Vaccine (1 of 2) 1999 Fall Risk Assessment 2014 Pneumococcal Vaccine (2 of 2 - PCV) 07/29/2015 07/29/2014 RSV Adult > 60+ Yrs or Pregn ant (1 - 1-dose 75+ series) 01/27/2024 Influenza Vaccine (#1) 2024 Hepatitis B Vaccines Aged Out No long er eligible based on patient's age to complete this topic RSV Ped < 20 months Aged Out No longe r eligible based on patient's age to complete this topic
--- OUTSIDE RECORDS SUMMARY | 2025-01-07 07:17 | XMS_ITS | Patient Health Record ---
Author Organization [facility] Address [address] [place] [phone] Care Team Providers Care Assembler And Tester Electronics Name Role Phone KIRILL TERI Primary Care Provider Gentry Hughes Jr Unavailable [phone] 2 ALLERGIES Allergen (clinical drug ingredient) Drug/Non Drug Allergy documented on EMR Reaction Allergy Type Onset Date Status vancomycin Vancomycin Unknown Drug Allergy Activ e ivp dye (uncoded) Unknown Allergy Ac tive REASON FOR REFERRAL No Information MEDICATIONS Medication SIG (Take, Route, Frequency, Duration) Notes Start Date End Date Status Zetia 10 MG 1 tablet Orally Once a day for 30 day(s) Active Aspir-Low 81 MG 1 tablet Orally Once a day for 30 day(s) Active Latanoprost 0.005 % INSTILL 1 DROP INTO BOTH EYES AT BEDTIME PLAN LIMITATIONS Ophthalmic for 85 Active Valsartan-hydroCHLOROthiazi de 160-12.5 MG Oral for 90 Active Brilinta 60 MG Oral for 90 Act eder Levothyroxine Sodium 137 MCG Oral for 90 Active Allopurinol 300 MG TAKE 1 TABLET BY NANDA TH EVERY DAY Oral for 90 Active Toprol XL 100 MG 1 tablet Orally Once a day for 30 day(s) Active IMMUNIZATIONS Vaccine Route Administration Date Status Comme nts Influenza Unknown 10/09/2023 Administered SOCIAL HISTORY Tobacco Use: Social History Observation Description Date Details (start date - stop date) Never Smoker NA - NA Sex Assigned At : Social History Observation Description Sex Assigned At Unknown Tobacco Use/Smoking Question Answer Notes Patient is a nonsmoker Alcohol Screen Question Answer Notes Did you have a drink contain ing alcohol in the past year? Yes How often did you have a dri nk containing alcohol in the past year? 4 or more times a week (4 points) How many drinks did you have on a typical day when you were drinking in the past year? 1 or 2 drinks (0 point) How often did you have 6 or more drinks on one occasion in the past year? Never (0 point) Points 4 Interpretation Positive PROBLEMS Problem Type ICD Code Onset Dates Problem Status W/U Status Risk SNOMED Code Notes Problem Abnormal findings in stool (R19.5) Active confirmed 565031287 VITAL SIGNS Temperature 97.7 degrees Fahrenheit 05/12/2024 Blood pressure diastolic 00 mm Hg 05/12/2024 Height 5 ft 7 in in 05/12/2024 Blood pressure systolic 000 mm Hg 05/12/2024 Weight 195 lbs 05/12/2024 BMI 30.54 kg/m2 05/12/2024 Encounters Encounter Location Date Provider Diagnosis [facility] Outpatient [address] [place] [phone] 07/15/2024 Gentry Avelar Jr Abnormal findings in stool R19.5 [facility] [address] [place] [phone] 05/12/2024 Gentry Avelar Jr Abnormal findings in stool R19.5 [facility] [address] [place] [phone] 04/17/2024 Gentry Avelar Jr [facility] [address] [place] [phone] 05/12/2024 Gentry Avelar Jr ASSESSMENTS Encounter Date Diagnosis Assessment Notes Treatment Notes Treatment Clinical Notes 07/15/2024 Abnormal findings in stool (ICD-10 - R19.5) 05/12/2024 Abnormal findings in stool (ICD-10 - R19.5) Fecal immunochemical test (FIT) material was printed PLAN OF TREATMENT Future Test Test Name Order Date COLONOSCOPY 05/12/2024 Insurance Providers Payer Name Payer Address Payer Phone Subscriber Number Group Number Insured Name Patient Relationship to Insured Coverage Start Date Coverage End Date [facility] [address] [place] [address] [phone] [id number] BALDOMERO YOA Self - patient is the insured MEDICAL (GENERAL) HISTORY Medical History History ICD Code Bicuspid aortic valve status post replac ement, current bioprosthetic valve Ascending aortic aneurysm repair PFO pacemaker Glaucoma and cataract repairs Hearing deficit BPH amaurosis fugax Gout Surgical History Surgery Date(Month/Year) AVR and PFO surgery thyroidectomy appendectomy pacemaker
--- OUTSIDE RECORDS SUMMARY | 2025-01-07 07:17 | XMS_ITS ---
Author Organization [facility] Address [address] [place] [phone] Care Team Providers Care Drill Instructor Name Role Phone TERI ROY Primary Care Provider Gentry Hughes Jr Unavailable ALLERGIES Allergen (clinical drug ingredient) Drug/Non Drug Allergy documented on EMR Reaction Allergy Type Onset Date Status vancomycin Vancomycin Unknown Drug Allergy Activ e ivp dye (uncoded) Unknown Allergy Ac tive REASON FOR VISIT Patient presents today for ABNORMAL FINDINGS IN STOOL MEDICATIONS Medication SIG (Take, Route, Frequency, Duration) Notes Start Date End Date Status Valsartan-hydroCHLOROthiazi de 160-12.5 MG Oral for 90 Active Brilinta 60 MG Oral for 90 Act eder Levothyroxine Sodium 137 MCG Oral for 90 Active Allopurinol 300 MG TAKE 1 TABLET BY NANDA TH EVERY DAY Oral for 90 Active Zetia 10 MG 1 tablet Orally Once a day for 30 day(s) Active Aspir-Low 81 MG 1 tablet Orally Once a day for 30 day(s) Active Latanoprost 0.005 % INSTILL 1 DROP INTO BOTH EYES AT BEDTIME PLAN LIMITATIONS Ophthalmic for 85 Active Toprol XL 100 MG 1 tablet Orally Once a day for 30 day(s) Active SOCIAL HISTORY Tobacco Use: Social History Observation [...] Abnormal findings in stool (R19.5) Active confirmed [id number] VITAL SIGNS BMI 30.54 kg/m2 05/12/2024 Blood pressure systolic 000 mm Hg 05/12/20 Blood pressure diastolic 00 mm Hg 024 Height 5 ft 7 in in 05/12/2024 Temperature 97.7 degrees Fahrenheit 05/12/20 Weight 195 lbs 05/12/2024 Encounters Encounter Location Date Provider Diagnosis [facility] [address] [place] [phone] 05/12/2024 Gentry Avelar Jr Abnormal findings in stool R19.5 ASSESSMENTS Encounter Date Diagnosis Assessment Notes Treatment Notes Treatment Clinical Notes 05/12/2024 Abnormal findings in stool (ICD-10 - R19.5) Fecal immunochemical test (FIT) material was printed PLAN OF TREATMENT Treatment Notes Assessment Notes Abnormal findings in stool Fecal immunoc hemical test (FIT) material was printed Future Test Test Name Order Date COLONOSCOPY 05/12/2024 Next Appt Details Follow Up: 1 Year, Reason: Progress Notes * Examination Category Sub-Category Detail Notes General Examination GENERAL APPEARANCE: in no ac aliyah distress HEAD: normocephalic EYES: sclera non-icteric NECK/THYROID: no lymphadenopathy HEART: S1, S2 normal, no mu rmurs CHEST: normal shape and exp ansion LUNGS: clear to auscultatio n bilaterally ABDOMEN: soft, nontender, non distended, bowel sounds present, no organomegaly SKIN: anicteric EXTREMITIES: no clubbing, cyanosi s, or edema PSYCH: cognitive function i ntact ORAL CAVITY: mucosa moist
--- OUTSIDE RECORDS SUMMARY | 2025-01-07 07:18 | XMS_ITS ---
Author Organization [facility] Address [address] [place] [address] Care Team Providers Care Senior Software Engineer Name Role Phone KIRILL, KARTIK Primary Care Provider Gentry Hughes Jr REASON FOR VISIT colonoscopy Encounters Encounter Location Date Provider Diagnosis [facility] [address] [place] [phone] 05/12/2024 Gentry Avelar Jr PLAN OF TREATMENT No Information
[2025-01-07 08:45] LABS: Thyroid Stimulating Hormone 5.87 uIU/mL (0.32-4.0)
[2025-01-07 09:37] LABS: Free T4 (Free Thyroxine) 1.26 ng/dL (0.71-1.85)
== END 2025-01-07 07:16 | disposition home or self-care (01) ==
LOC: HO.LAB 07:15
PROVIDERS: PCP Internal Medicine; Visit Provider Internal Medicine
DX: E89.0 Postprocedural hypothyroidism (principal)
CPT/HCPCS: 36415; 84439; 84443

== ENCOUNTER → 2025-01-17 23:59 | Outpatient (BNV) | payer BC, SELFPAY ==
--- NOTE | 2025-01-21 17:44 | MHC.OFFVIS ---
Intake Visit Reasons: Remote ILR check- [employer] Allergies Iodinated Contrast Media [IV Dye, Iodine Containing] Allergy (Severe, Verified 10/05/24 14:52) VASCULAR COLLAPSE and vascular spasm simvastatin [SIMVASTATIN] Allergy (Intermediate, Verified 10/05/24 14:52) MYALGIA vancomycin [VANCOMYCIN] Allergy (Intermediate, Verified 10/05/24 14:52) itching, rash and hives atorvastatin [ATORVASTATIN] Allergy (Mild, Verified 10/05/24 14:52) VISUAL HALOS clopidogrel [From Plavix] Adverse Reaction (Intermediate, Verified 10/05/24 14:52) Diarrhea [facility] Medical History (Updated 01/07/25 @ 09:05 by Aditi Em PA-C) Hypothyroidism ASVD (arteriosclerotic vascular disease) Glaucoma AAA (abdominal aortic aneurysm) Bicuspid aortic valve Benign prostate hyperplasia Trigger finger of all digits of left hand Raynauds phenomenon Blindness, sudden AV block Hypertension Surgical History Hx of cataract extraction History of surgery History of basal cell carcinoma excision History of appendectomy History of permanent cardiac pacemaker placement History of thyroidectomy Status post percutaneous patent foramen ovale closure Status post ascending aortic replacement History of aortic valve replacement Social History Housing: House Alcohol intake: current Alcohol intake frequency: a few times a week Alcohol type: beer Patient Tobacco Use Status: Never used Tobacco e-Cigarette/Vaping Use: Never Used Second Hand Smoke Exposure: No service: No 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 Two episodes of tachycardia noted consistent with SVT. No episodes of atrial fibrillation or pauses [id number] Cardiac Interrogation, subcut cardiac rhythm monitor Procedure code (CPT) selection complete Assessment & Plan Assessment & Plan (1) Implantable loop recorder present: Code(s): Z95.818 - Presence of other cardiac implants and grafts Category: Medical Plan: See above Coding Level of Care Code Procedure Only Diagnoses Implantable loop recorder present Z95.818 CPT Codes Cardiac Device Check - Cardiac Device 16: [id number] Cardiac Interrogation, subcut cardiac rhythm monitor ([id number])
== END ==
PROVIDERS: PCP Internal Medicine; Visit Provider Internal Medicine Cardiovascular Disease
DX: I47.10 Supraventricular tachycardia, unspecified (principal); Z95.818 Presence of other cardiac implants and grafts
CPT/HCPCS: 93298

== ENCOUNTER → 2025-02-17 23:59 | Outpatient (BNV) | payer BC, SELFPAY ==
--- NOTE | 2025-02-18 13:06 | MHC.OFFVIS ---
Intake Visit Reasons: Remote ILR check- [employer] Allergies Iodinated Contrast Media [IV Dye, Iodine Containing] Allergy (Severe, Verified 10/05/24 14:52) VASCULAR COLLAPSE and vascular spasm simvastatin [SIMVASTATIN] Allergy (Intermediate, Verified 10/05/24 14:52) MYALGIA vancomycin [VANCOMYCIN] Allergy (Intermediate, Verified 10/05/24 14:52) itching, rash and hives atorvastatin [ATORVASTATIN] Allergy (Mild, Verified 10/05/24 14:52) VISUAL HALOS clopidogrel [From Plavix] Adverse Reaction (Intermediate, Verified 10/05/24 14:52) Diarrhea [facility] Medical History (Updated 01/07/25 @ 09:05 by Aditi Em PA-C) Hypothyroidism ASVD (arteriosclerotic vascular disease) Glaucoma AAA (abdominal aortic aneurysm) Bicuspid aortic valve Benign prostate hyperplasia Trigger finger of all digits of left hand Raynauds phenomenon Blindness, sudden AV block Hypertension Surgical History Hx of cataract extraction History of surgery History of basal cell carcinoma excision History of appendectomy History of permanent cardiac pacemaker placement History of thyroidectomy Status post percutaneous patent foramen ovale closure Status post ascending aortic replacement History of aortic valve replacement Social History Housing: House Alcohol intake: current Alcohol intake frequency: a few times a week Alcohol type: beer Patient Tobacco Use Status: Never used Tobacco e-Cigarette/Vaping Use: Never Used Second Hand Smoke Exposure: No service: No 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 No arrhythmias or pauses noted [id number] Cardiac Interrogation, subcut cardiac rhythm monitor Procedure code (CPT) selection complete Assessment & Plan Assessment & Plan (1) Implantable loop recorder present: Code(s): Z95.818 - Presence of other cardiac implants and grafts Category: Medical Plan: . Above Coding Level of Care Code Procedure Only Diagnoses Implantable loop recorder present Z95.818 CPT Codes Cardiac Device Check - Cardiac Device 16: [id number] Cardiac Interrogation, subcut cardiac rhythm monitor ([id number])
== END ==
PROVIDERS: PCP Internal Medicine; Visit Provider Internal Medicine Cardiovascular Disease
DX: Z45.09 Encounter for adjustment and management of other cardiac device (principal)
CPT/HCPCS: 93298

== ENCOUNTER → 2025-03-20 23:59 | Outpatient (BNV) | payer BC, SELFPAY ==
--- NOTE | 2025-03-26 09:09 | A.OFFVIS_ITS ---
Intake Visit Reasons: Remote ILR check- [employer] Allergies Iodinated Contrast Media [IV Dye, Iodine Containing] Allergy (Severe, Verified 10/05/24 14:52) VASCULAR COLLAPSE and vascular spasm simvastatin [SIMVASTATIN] Allergy (Intermediate, Verified 10/05/24 14:52) MYALGIA vancomycin [VANCOMYCIN] Allergy (Intermediate, Verified 10/05/24 14:52) itching, rash and hives atorvastatin [ATORVASTATIN] Allergy (Mild, Verified 10/05/24 14:52) VISUAL HALOS clopidogrel [From Plavix] Adverse Reaction (Intermediate, Verified 10/05/24 14:52) Diarrhea [facility] Medical History (Updated 01/07/25 @ 09:05 by Aditi Em PA-C) Hypothyroidism ASVD (arteriosclerotic vascular disease) Glaucoma AAA (abdominal aortic aneurysm) Bicuspid aortic valve Benign prostate hyperplasia Trigger finger of all digits of left hand Raynauds phenomenon Blindness, sudden AV block Hypertension Surgical History Hx of cataract extraction History of surgery History of basal cell carcinoma excision History of appendectomy History of permanent cardiac pacemaker placement History of thyroidectomy Status post percutaneous patent foramen ovale closure Status post ascending aortic replacement History of aortic valve replacement Social History Housing: House Alcohol intake: current Alcohol intake frequency: a few times a week Alcohol type: beer Patient Tobacco Use Status: Never used Tobacco e-Cigarette/Vaping Use: Never Used Second Hand Smoke Exposure: No service: No 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 No pauses or episodes of atrial fibrillation noted [id number] Cardiac Interrogation, subcut cardiac rhythm monitor Procedure code (CPT) selection complete Assessment & Plan Assessment & Plan (1) Implantable loop recorder present: Code(s): Z95.818 - Presence of other cardiac implants and grafts Category: Medical Plan: See above Coding Level of Care Code Procedure Only Diagnoses Implantable loop recorder present Z95.818 CPT Codes Cardiac Device Check - Cardiac Device 16: [id number] Cardiac Interrogation, subcut cardiac rhythm monitor ([id number])
== END ==
PROVIDERS: PCP Internal Medicine; Visit Provider Internal Medicine Cardiovascular Disease
DX: Z45.09 Encounter for adjustment and management of other cardiac device (principal)
CPT/HCPCS: 93298

== ENCOUNTER → 2025-03-31 14:34 | Outpatient (REF) | payer BC, SELFPAY ==
--- NOTE | 2025-03-31 14:40 | CA_ITS ---
Transthoracic Echocardiogram Patient (Last, First, Middle): Shashank Gruber M Gender: Male Date of : 1950 Age: 75 Procedure Date: 03/31/2025 Procedure Type: Transthoracic Echocardiogram Location: OP Height: 170.18 cm Weight: 90.72 kg BSA: 2.02 m2 Heart Rate: bpm BP: 124 / 80 mmHg Armature Balancer: Referring MD: Ad Gallardo MD Manager Applied: Ad Gallardo MD Symptoms: Z95.2 - Presence of prosthetic heart valve Study Quality: Fair ECG Rhythm: Sinus Conclusions: - 1. Normal LV ejection fraction 55-60% with pseudonormal filling pattern 2. Normally functioning bioprosthetic aortic valve with mean gradient of 9 mm Hg 3. Normal cardiac valvular Dopplers 4. Normal RV systolic pressure 5. No pericardial effusion Findings Left Ventricle Normal left ventricular size, thickness, and systolic function. The visually estimated ejection fraction is between 55-60%. Spectral Doppler is indicative of a pseudonormal filling pattern. E/E prime ratio is between 8 and 15 consistent with indeterminate filling pressures. Right Ventricle Mildly increased right ventricular cavity size. There is normal right ventricular systolic function. Atria The left atrium is mildly dilated. thickened intra-atrial septum most suggestive of intervention with a closure device. The right atrium is normal in size. Aortic Valve A bioprosthetic aortic valve is present. The prosthetic aortic valve appears to be functioning normally. The aortic valve was not well visualized. The mean gradient is 9 mmHg. Mitral Valve The mitral valve was not well visualized. There is mild anterior and posterior mitral leaflet thickening. There is mild mitral annular calcification. There is trace mitral valve regurgitation. There is no mitral valve stenosis. Pulmonic Valve The pulmonic valve was not well visualized. Tricuspid Valve Likely normal tricuspid valve structure and function. There is trace tricuspid valve regurgitation. The right ventricular systolic pressure is normal. The right ventricular systolic pressure is 13 mmHg. Normal right atrial pressure. There is no evidence of pulmonary hypertension. Great Vessels The pulmonary artery was not well visualized. There is no dilatation of the ascending aorta measuring 2.90 cm. Venous The inferior vena cava is normal in size and collapses greater than 50% with inspiration. Pericardium/Pleural There is no evidence of pericardial effusion. Prior Study Comparison No significant change compared to prior study dated: 04/15/2024. Measurements 2D Linear Measurements IVSd: 1.02 0.6-0.9/0.6-1.0 cm LVIDd: 4.99 3.9-5.3/4.2-5.9 cm LVIDd Index: 2.47 2.4-3.2/2.2-3.1 cm/m2 LVIDs: 3.09 2.0-3.6 cm LVPWd: 1.12 0.7-1.1 cm Ao Root: 3.10 2.1-3.5 cm LA Diam: 4.30 2.7-3.8/3.0-4.0 cm LAIDs Index: 2.13 1.5-2.3 cm/m2 LV Mass: 247.74 67-162/88-224 g LV Mass Index: 122.65 43-95/49-115 g/m2 LVOT Diam: 2.10 3.0+(-)1.3 cm 2D Systolic Function EF 4C: 56.10 >55% EF 2C: 52.90 >55% EF BiP: 55.60 >55% Mitral Valve MV Pk E: 1.06 MV PK A: 0.80 MV Decel Time: 247.00 E/A: 1.30 E'Lateral: 10.00 E'Medial: 7.07 E/E' Med: 15.00 E/E' Lat: 10.60 PHT: 72.00 MVA PHT: 3.06 Decel [place]: 4.29 Aortic Valve AoV Pk Kailash: 2.18 AoV Mn Kailash: 1.30 AoV VTI: 0.48 AoV Pk Grad: 19.00 Aov Mn Grad: 9.00 RIOS Cont.VTI: 1.82 LVOT LVOT Pk Kailash: 1.06 LVOT Mn K[place]ah: 0.65 LVOT VTI: 0.25 LVOT Pk Grad: 4.00 LVOT Mn Grad: 2.00 LVOT Diam: 2.10 LVOT Area: 3.46 Diastolic Function MV Pk E: 1.06 MV Pk A: 0.80 E/A: 1.30 E'Medial: 7.07 E/E' Med: 15.00 E' Laterial: 10.00 E/E' Lat: 10.60 Right Ventricle TAPSE (mm): 21.00 Tricuspid Valve TR Pk Kailash: 1.60 TR Pk Grad: 10.00 RA Press: 3.00 RVSP: 13.00 Great Vessels Aorta Ao Root-2D: 3.10 2.0-3.7 cm Ao Asc: 2.90 2.1-3.4 cm Pulmonary Valve PV Pk Kailash: 0.97 Peak PV Grad: 4.00 Updated in Other Vendor System with Status of Final Ad Gallardo MD electronically signed on 04/01/2025 4:24:39 PM with status of Final
--- OUTSIDE RECORDS SUMMARY | 2025-03-31 15:42 | XMS_ITS ---
Author Name [facility] Organization Unknown Care Team Organization Name Specialty Phone Email Start Date End [facility] 10/03/2024
--- OUTSIDE RECORDS SUMMARY | 2025-03-31 15:42 | XMS_ITS ---
Author Organization [facility] Address [address] [place] [phone] Care Team Providers Care Field Services Analyst Name Role Phone TERI ROY Primary Care Provider Gentry Hughes Jr REASON FOR VISIT abn findings in stool Encounters Encounter Location Date Provider Diagnosis [facility] Outpatient [address] [place] [phone] 07/15/2024 Gentry Avelar Jr Abnormal findings in stool R19.5 Assessments Encounter Date Diagnosis (ICD Code) Assessment Notes Treatment Notes Treatment Clinical Notes Section Notes 07/15/2024 Abnormal findings in stool (ICD-10 - R19.5) Plan Of Treatment No Information Progress Notes * BALDOMERO MORTONDOB: [birth year] (75 yo M)Acc No.[id number]:07/15/2024 COLON WITH MAC Patient:?BALDOMERO MORTON Provider:?Gentry Avelar MD :1950???Age:74 Y???Sex:Male Richie e:07/15/2024 Address: [id number] Pcp:TERI ROY Subjective: * Chief Complaints: * ???1. Abn findings in stool. * Medical History:? Objective: * Vitals:? Assessment: * Assessment: 1.?Abnormal findings in stoo l - R19.5 (Primary)??? Plan: * Treatment: * Procedure Codes:?51652 DIAGN OSTIC COLONOSCOPY * * The named appointment provid er may or may not be the originator of this progress note, and it is not deemed complete until electronically signed by the appointment provider. Sign off status: Pending * Provider:?Gentry Avelar MD Date:?0 07/15/2024 Generated for Aranza liang/Soraya/Lenoreitting on:?03/31/2025 03:42 PM EDT
--- OUTSIDE RECORDS SUMMARY | 2025-03-31 15:42 | XMS_ITS | Clinical Summary ---
Author Organization [facility] Address [address] [place] [address] Care Team Providers Care Review Manager Name Role Phone Unavailable Primary Care Provider [...] Tdap / Td (1 - Tdap) 01/27/1968 Shingrix-Zoster Vaccine (1 of 2) 1999 Fall [...]
--- OUTSIDE RECORDS SUMMARY | 2025-03-31 15:43 | XMS_ITS ---
Author Organization [facility] Address [address] [place] [phone] Care Team Providers Care Stripping Shovel Oiler Name Role Phone TERI ROY Primary Care Provider Gentry Hughes Jr Unavailable [phone] Allergies Allergen (clinical drug ingredient) Drug/Non Drug Allergy documented on EMR Reaction Allergy Type Onset Date Status vancomycin Vancomycin Unknown Drug Allergy Activ e ivp dye (uncoded) Unknown Allergy Ac tive REASON FOR VISIT Patient presents today for ABNORMAL FINDINGS IN STOOL Medications Medication SIG (Take, Route, Frequency, Duration) Notes [...] Once a day for 30 day(s) Active Social History Tobacco Use: Social History Observation Description Date Details (start date - stop date) Never Smoker NA - NA Tobacco Use/Smoking Question Answer Notes Patient is [...] Never (0 point) Points 4 Interpretation Positive Problems Problem Type SNOMED Code ICD Code Onset Dates Problem Status W/U Status Risk Notes Problem [id number] Abnormal findings in stool (R19.5) Active confirmed Vital Signs Temperature 97.7 degrees Fahrenheit 05/12/20 Blood pressure systolic 000 mm Hg 05/12/20 Blood pressure diastolic 00 mm Hg 024 Height 5 ft 7 in in 05/12/2024 Weight 195 lbs 05/12/2024 BMI 30.54 kg/m2 05/12/2024 Encounters Encounter Location Date Provider Diagnosis [facility] [address] [place] [phone] 05/12/2024 Gentry Avelar Jr Abnormal findings in stool R19.5 Assessments Encounter Date Diagnosis (ICD Code) Assessment Notes Treatment Notes Treatment Clinical Notes Section Notes 05/12/2024 Abnormal findings in stool (ICD-10 - R19.5) Fecal immunochemical test (FIT) material was printed We discussed stool DNA testing in detail today including results found that time of colonoscopy as well as occult positive and false-negative rates. We discussed colonoscopy. This could be done on DAPT therapy or not, depending on his risk for blood clots. She will discuss this with Dr. Gallardo and let us know how he wishes to proceed. We discussed risks and benefits of colonoscopy today. Plan Of Treatment Treatment Notes Assessment Notes Abnormal findings in stool Fecal immunoc hemical test (FIT) material was printed Future Test Test Name Order Date COLONOSCOPY 05/12/2024 Next Appt Details Follow Up: 1 Year, Reason: Progress Notes * BALDOMERO MORTONDOB: [birth year] (74 yo M)Acc No.[id number]:05/12/2024 Progress Notes Patient:?BALDOMERO MORTON Provider:?Gentry Avelar MD :1950???Age:74 Y???Sex:Male Richie e:05/12/2024 Address:[address], [facility] Pcp:TREI ROY Subjective: * Chief Complaints: * ???1. Patient presents today for ABNORMAL FINDINGS IN STOOL. * HPI: ???New symptom(s):? 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 He was found to have abnormal stool DNA testing through his primary care providers office. He feels well. He has no complaints of rectal bleeding or change in bowels except for irregularity which is a chronic issue. He has not seen any melena. He has no upper GI symptoms. There is a family history of colon polyps in her brother. He reports his last full colonoscopy as an outpatient was done approximately 20 years ago, and then had a second colonoscopy 9 years ago after aVR and postop ileus at [facility]. Neither of these have shown any specific findings. * ROS:?General/Constitutional:?Change in appetite?denies.?Fatigue?denies.?ENT:?Patient denies?difficulty swallowing.?Respiratory:?Patient denies?shortness of breath.?Cardiovascular:?Patient denies?chest pain.?Gastrointestinal:?Comments?See HPI for details.?Genitourinary:?Difficulty urinating?denies.?Incontinence?denies.?Musculoskeletal:?Patient denies?muscle aches.?Skin:?Patient denies?pruritis.?Neurologic:?Patient denies?low back pain.?Psychiatric:?Patient denies?mental or physical abuse.? * Medical History:?Bicuspid ao rtic valve status post replacement, current bioprosthetic valve, Ascending aortic aneurysm repair, PFO, Pacemaker, Glaucoma and cataract repairs, Hearing deficit, BPH, Amaurosis fugax, Gout. * Surgical History:?AVR and PF O surgery , thyroidectomy , appendectomy , pacemaker . * Family History:?Father: dece ased, diagnosed with Heart disease.?Mother: , diagnosed with Inflammatory bowel disease.? No family history of colon cancer or liver cancer. Brother has polyps. * Social History:?Tobacco Use:?Tobacco Use/Smoking?Patient is a?nonsmoker.?Drugs/Alcohol:?Alcohol Screen?Did you have a drink containing alcohol in the past year??Yes,?How often did you have a drink containing alcohol in the past year??4 or more times a week (4 points),?How many drinks did you have on a typical day when you were drinking in the past year??1 or 2 drinks (0 point),?How often did you have 6 or more drinks on one occasion in the past year??Never (0 point),?Points?4,?Interpretation?Positive.?Miscellaneous:?Marital status: . 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 * Medications:?Taking Toprol X L 100 MG Tablet Extended Release 1 tablet Orally Once a day, Taking Zetia 10 MG Tablet 1 tablet Orally Once a day, Taking Aspir-Low 81 MG Tablet Delayed Release 1 tablet Orally Once a day, Taking Latanoprost 0.005 % Solution INSTILL 1 DROP INTO BOTH EYES AT BEDTIME PLAN LIMITATIONS Ophthalmic , Taking Valsartan-hydroCHLOROthiazide 160-12.5 MG Tablet Oral , Taking Brilinta 60 MG Tablet Oral , Taking Levothyroxine Sodium 137 MCG Tablet Oral , Taking Allopurinol 300 MG Tablet TAKE 1 TABLET BY MOUTH EVERY DAY Oral , Discontinued Ezetimibe 10 MG Tablet Oral , Medication List reviewed and reconciled with the patient * Allergies:?Vancomycin, ivp d ye . Objective: * Vitals:?Wt: 195 lbs, Ht: 5 f t 7 in, BMI:30.54 Index, BP: 000/00 mm Hg, Temp: 97.7. * Examination: ???General Examination: ?GENERAL APPEARANCE:?in no acute distress.?HEAD:?normocephalic.?EYES:?sclera non-icteric.?ORAL CAVITY:?mucosa moist.?NECK/THYROID:?no lymphadenopathy.?SKIN:?anicteric.?HEART:?S1, S2 normal, no murmurs.?LUNGS:?clear to auscultation bilaterally.?CHEST:?normal shape and expansion.?ABDOMEN:?soft, nontender, nondistended, bowel sounds present, no organomegaly .?EXTREMITIES:?no clubbing, cyanosis, or edema.?PSYCH:?cognitive function intact.? Assessment: * Assessment: 1.?Abnormal findings in stoo l - R19.5 (Primary)? We discussed stool DNA testi azul in detail today including results found that time of colonoscopy as well as occult positive and false-negative rates. We discussed colonoscopy. This could be done on DAPT therapy or not, depending on his risk for blood clots. She will discuss this with Dr. Gallardo and let us know how he wishes to proceed. We discussed risks and benefits of colonoscopy today. Plan: * Treatment: * Procedure Codes:?3017F COLOR ECTAL CA SCREEN DOC REV, G9903 Pt scrn tbco id as non user, G9744 PATIENT NOT ELIG D/T ACTIVE DX HTN * Preventive Medicine:? ??Counseling:?Care goal follow-up plan:?Above Normal BMI Follow-up?Giving encouragement to exercise,?BMI management provided?Yes.? 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 He was found to have abnormal stool DNA testing through his primary care providers office. He feels well. He has no complaints of rectal bleeding or change in bowels except for irregularity which is a chronic issue. He has not seen any melena. He has no upper GI symptoms. There is a family history of colon polyps in her brother. He reports his last full colonoscopy as an outpatient was done approximately 20 years ago, and then had a second colonoscopy 9 years ago after aVR and postop ileus at [facility]. Neither of these have shown any specific findings. Examination Category Sub-Category Detail Notes Category Not es General Examination GENERAL APPEARANCE: in no acute di stress HEAD: normocephalic EYES: sclera non-icteric NECK/THYROID: no lymphadenopathy HEART: S1, S2 normal, no mu rmurs CHEST: normal shape and exp ansion LUNGS: clear to auscultatio n bilaterally ABDOMEN: soft, nontender, non distended, bowel sounds present, no organomegaly SKIN: anicteric EXTREMITIES: no clubbing, cyanosi s, or edema PSYCH: cognitive function i ntact ORAL CAVITY: mucosa moist
--- OUTSIDE RECORDS SUMMARY | 2025-03-31 15:43 | XMS_ITS ---
Author Organization [facility] Address [address] [place] [phone] Care Team Providers Care Tank Crewmember Name Role Phone TERI ROY Primary Care Provider Jennifer Avelar Jr, Gentry Gan REASON FOR VISIT colonoscopy Encounters Encounter Location Date Provider Diagnosis [facility] [address] [place] [phone] 05/12/2024 Gentry Avelar Jr Plan Of Treatment No Information Progress Notes * BALDOMERO MORTONDOB: [birth year] (74 yo M)Acc No.[id number]:05/12/2024 Patient:?SELENE BALDOMERO :1950???Age:74 Y???Sex:Male Address: [place], [address] * true * Date:? Generated for Printi azul/Fajazmineg/eTransmitting on:?03/31/2025 03:43 PM EDT
--- OUTSIDE RECORDS SUMMARY | 2025-03-31 15:43 | XMS_ITS | Patient Health Record ---
Author Organization [facility] Address [address] [place] [phone] Care Team Providers Care Union Organizer Name Role Phone KIRILL TERI Primary Care Provider Gentry Hughes Jr Unavailable [phone] Allergies Allergen (clinical drug ingredient) Drug/Non Drug Allergy documented on EMR Reaction Allergy Type Onset Date Status vancomycin Vancomycin Unknown Drug Allergy Activ e ivp dye (uncoded) Unknown Allergy Ac tive Reason For Referral No Information Medications Medication SIG (Take, Route, Frequency, Duration) [...] Once a day for 30 day(s) Active Immunizations Vaccine Route Administration Date Status Comme nts Influenza Unknown 10/09/2023 Administered Social History Tobacco Use: Social History Observation [...] Problem Status W/U Status Risk Notes Problem [id number] Abnormal findings in stool (R19.5) Active confirmed Vital Signs Temperature 97.7 degrees Fahrenheit 05/12/2024 Blood pressure diastolic 00 mm Hg 05/12/2024 Height 5 ft 7 in in 05/12/2024 Blood pressure systolic 000 mm Hg 05/12/2024 Weight 195 lbs 05/12/2024 BMI 30.54 kg/m2 05/12/2024 Encounters Encounter Location Date Provider Diagnosis [facility] [address] [place] [phone] 07/15/2024 Gentry Avelar Jr Abnormal findings in stool R19.5 [facility] [address] [place] [phone] 05/12/2024 Gentry Avelar Jr Abnormal findings in stool R19.5 [facility] [address] [place] [phone] 04/17/2024 Gentry Avelar Jr [facility] [address] [place] [phone] 05/12/2024 Gentry Avelar Jr Assessments Encounter Date Diagnosis (ICD Code) Assessment [...] benefits of colonoscopy today. Plan Of Treatment Future Test Test Name Order Date COLONOSCOPY 05/12/2024 Insurance Providers Payer Name Payer Address Payer Phone Subscriber Number Group Number Insured Name Patient Relationship to Insured Coverage Start Date Coverage End Date [facility] [address] [place] [address] [phone] [id number] BALDOMERO YAO Self - patient is the insured Medical (General) History Medical History History ICD Code Bicuspid aortic valve status post replac ement, current bioprosthetic valve Ascending aortic aneurysm repair PFO pacemaker Glaucoma and cataract repairs Hearing deficit BPH amaurosis fugax Gout Surgical History Surgery Date(Month/Year) AVR and PFO surgery thyroidectomy appendectomy pacemaker
== END ==
LOC: HO.CARD 14:34
PROVIDERS: PCP Internal Medicine; Visit Provider Internal Medicine Cardiovascular Disease
DX: Z95.2 Presence of prosthetic heart valve (principal)
CPT/HCPCS: 93306

== ENCOUNTER 2025-04-02 13:31 | Outpatient (AMB) | payer BC, SELFPAY ==
--- NOTE | 2025-04-02 13:45 | A.OFFPC_ITS ---
Vital Signs 04/02/25 13:48 Height 5 ft 7 in Weight 200 lb BMI 31.3 BP 130/0 L Blood Pressure Location Lt brachial Position Sitting Pulse 63 Pulse Source Pulse Oximeter Temp 97.1 F Temp Source Temporal Artery Scan Pulse Oximetry (%) 97 Oxygen Delivery Method Room Air Intake Visit Reasons: 6 month f/u Intake Note: Patient is here to follow up on Hypothyroidism, High cholesterol, HTN, BPH. Agile Developer Required: No Writer: Not Required per policy Accompanied by: Self / Same As Patient Allergies Iodinated Contrast Media [IV Dye, Iodine Containing] Allergy (Severe, Verified 04/02/25 13:48) VASCULAR COLLAPSE and vascular spasm simvastatin [SIMVASTATIN] Allergy (Intermediate, Verified 04/02/25 13:48) MYALGIA vancomycin [VANCOMYCIN] Allergy (Intermediate, Verified 04/02/25 13:48) itching, rash and hives atorvastatin [ATORVASTATIN] Allergy (Mild, Verified 04/02/25 13:48) VISUAL HALOS clopidogrel [From Plavix] Adverse Reaction (Intermediate, Verified 04/02/25 13:48) Diarrhea Tobacco use date assessed: 04/02/25 Fall risk assessment: No Falls in past year Last assessed Fall Risk: 04/02/25 Dental Screening Dental Screen Date: 04/02/25 Did you have a dental visit in the last 12 months?: Yes Did you have a dental problem in the last 6 months where you did not have access to dental care?: No Was dental information given to patient?: Patient has dentist [facility] Medical History (Updated 04/02/25 @ 14:18 by Anthony Hewitt MD) Squamous cell carcinoma, face Hypothyroidism ASVD (arteriosclerotic vascular disease) Glaucoma AAA (abdominal aortic aneurysm) Bicuspid aortic valve Benign prostate hyperplasia Trigger finger of all digits of left hand Raynauds phenomenon Blindness, sudden AV block Hypertension Surgical History (Updated 04/02/25 @ 13:53 by MERLIN Pierson) History of removal of pigmented skin lesion History of colonoscopy (~07/15/24) Hx of cataract extraction History of surgery History of basal cell carcinoma excision History of appendectomy History of permanent cardiac pacemaker placement History of thyroidectomy Status post percutaneous patent foramen ovale closure Status post ascending aortic replacement History of aortic valve replacement Social History Housing: House Alcohol intake: current Alcohol intake frequency: a few times a week Alcohol type: beer Patient Tobacco Use Status: Never used Tobacco e-Cigarette/Vaping Use: Never Used Second Hand Smoke Exposure: No service: No 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 1. Little interest or pleasure in doing things: not at all 2. Feeling down, depressed, or hopeless: not at all 3. Trouble falling or staying asleep, or sleeping too much: not at all 4. Feeling tired or having little energy: not at all 5. Poor appetite or overeating: not at all 6. Feeling bad about yourself - or that you are a failure or have let yourself or your family down: not at all 7. Trouble concentrating on things, such as reading the newspaper or watching television: not at all 8. Moving or speaking so slowly that other people could have noticed. Or the opposite - being so fidgety or restless that you have been moving around a lot more than usual: not at all 9. Thoughts that you would be better off or of hurting yourself in some way: not at all Total score: 0 Depression Screening Interpretation: Negative Depression Screening Done: Yes Source: Developed by Drs. Gurjit Ledezma, Sara Christianson, Enrique Solano and colleagues, with an educational diego from [employer]. Thrive Questionnaire Date Thrive assessed: 03/26/25 I am a: Patient What is your living situation today?: I have a steady place to live Within the past 12 months, did the food you bought not last and you didn't have the money to get more?: Never true Within the past 12 months, did you worry whether your food would run out before you got money to buy more?: Never true Do you have trouble paying for medicines?: No Do you have trouble getting transportation to medical appointments?: No Do you have trouble paying your heating and electricity bill?: No Do you have trouble taking care of your child, family member or friend?: No Do you have trouble with day-to-day activities such as bathing, preparing meals, shopping, managing finances, etc.?: No Are you currently unemployed and looking for a job?: No Are you interested in more education?: No Please select the resources that you would like help with: None Currently or been in a relationship where the following occur: No concerns reported THRIVE Score: 0 AUDIT C Alcohol Use Questionnaire (AUDIT-C) 1. How often do you have a drink containing alcohol?: 4 or more times a week 2. How many drinks containing alcohol do you have on a typical day when you are drinking?: 1 or 2 3. How often do you have six or more drinks on one occasion?: Never Total Score: 4 WARREN-7 AMB Questionnaire WARREN-7 Date WARREN - 7 assessed: 04/02/25 Feeling nervous, anxious, or on edge: 0 = Not at all Not being able to stop or control worryin = Not at all Worrying too much about different things: 0 = Not at all Trouble relaxin = Not at all Being so restless that it is hard to sit still: 0 = Not at all Becoming easily annoyed or irritable: 0 = Not at all Feeling afraid as if something awful might happen: 0 = Not at all Total WARREN-7 score (0-4 normal; 5-9 mild; 10-14 moderate; 15-21 severe): 0 Source: Developed by Drs. Gurjit Ledezma, Sara Christianson, Enrique Solano and colleagues, with an educational diego from [employer]. Physical exam (Primary Care) Vital Signs: Last Vital Signs Temp 97.1 F 04/02/25 13:48 Pulse 63 04/02/25 13:48 BP 130/0 L 04/02/25 13:48 Pulse Ox 97 04/02/25 13:48 Oxygen Delivery Method Room Air 04/02/25 13:48 BMI result Body Mass Index 31.3 Tobacco/Smoking Status: Tobacco use Status Tobacco use date assessed 04/02/25 04/02/25 13:55 Patient Tobacco Use Status Never used Tobacco 04/02/25 13:55 e-Cigarette/Vaping Use Never Used 04/02/25 13:55 PHQ-9: PHQ-9 Score PHQ-9: Total score 0 04/02/25 13:55 Depression Screening Interpretation: Negative Thrive Assessment: Date of Thrive Assessment Date Thrive assessed 03/26/25 04/02/25 13:55 Currently or been in a relationship where the following occur: No concerns reported Advance Care Planning discussion: Exists, not on file Date of discussion: 04/02/25 Who was present: Patient Forms completed: Health Care Proxy and MOLST Time spent: 1-15 minutes, not on file Actual minutes spent: 5 Coding Level of Care Code Est Pt Level 4 (28753) Complex EM visit Add On G2211 Diagnoses Hypertension I10 Hypothyroidism E03.9 Squamous cell carcinoma, face C44.320 Additional Codes Vital Signs *Quality* - Advance Care Planning discussion: Exists, not on file ([id number]) Vital Signs *Quality* - Time spent: 1-15 minutes, not on file ([id number]) Assessment & Plan Assessment & Plan (1) Hypertension: Code(s): I10 - Essential (primary) hypertension Category: Medical Plan: BP in range. Drinking wine in moderation. Compliant with medications. (2) Hypothyroidism: Code(s): E03.9 - Hypothyroidism, unspecified Category: Medical Plan: TSH has been drawn, will adjust dosage accordingly. (3) Squamous cell carcinoma, face: Code(s): C44.320 - Squamous cell carcinoma of skin of unspecified parts of face Category: Medical Plan: Patient follows up with a tow motor mechanic. Plan History of Present Illness The patient is a 75-year-old male presenting with follow-up concerns on his multiple chronic conditions. He has a known history of basal cell carcinoma with recent management involving lesion removal and dermatological assessments biannually for continuous surveillance. Recent findings included a squamous cell carcinoma excised under the care of Dr. Navarro. The patient has experienced symptoms indicative of a vitreous detachment, characterized by semi-occluded vision resembling clouds in his right eye, but with no current tear in the retinal structure. Intervention has been deferred until symptoms potentially worsen. Hypothyroidism management has seen alterations in levothyroxine dosing owing to feeling persistently cold, prompting further investigation through TSH testing as per routine thyroid management, also accounting for notable weight gain concern. Previously reported cardiac arrhythmias involved high rate episodes notably attributable to instances of hyperthyroidism and dehydration due to viral infections satisfying episodic concerns, though frequency has notably decreased post-management of these underlying conditions. Continuing cardiovascular stability has been evidenced by echocardiographic results corroborating unchanged heart valve function. Social factors also influence his hyperlipidemia management, given his familial aortic disease history, necessitating further cholesterol panel assessments to oversee therapeutic effectiveness. Social History - Patient is currently retired but continues to work part-time every morning. - Increased reading activity for relaxation and completion of 10 books in recent months. - Reports engagement in home activities and attempted golf for recreation. - Alcohol intake of about two glasses of wine per day. - Family history of cardiovascular disease with his brother requiring bypass surgery and managing hyperlipidemia. Review of Systems - Dermatologic: Reports lesion removals for basal cell and squamous cell carcinoma - Ophthalmologic: Reports a vitreous detachment with no current retinal tear - Endocrine: Reports cold intolerance and weight gain with changes in l evothyroxine dosage - Cardiovascular: Reports past episodes of tachyarrhythmia related to hyperthyroidism - Neurologic: Denies further symptomatic episodes since recent management Physical Exam General: Cooperative and healthy appearing Nutritional Appearance: Well nourished Orientation/consciousness: Patient oriented x3 Limitations: No limitations Head: Normal to inspection General: Appearance normal, both eyes and all related structures Neck: Normal visual inspection Chest: Normal palpation of entire chest wall Respiratory: N ormal respiratory effort Neurology: Patient oriented x3, reports episodes of rapid heart rate associated with hyperthyroidism and dehydration. No current symptoms. Results - Labs: - Prior thyroid function test (TSH 0.01 when symptoms noted) - Weight gain and recent adjustments to thyroid medication - Tests and Diagnostics: - Echocardiogram: No change in status since last six- month evaluation Plan 1. Basal Cell Carcinoma - Routine dermatological follow-up post-recent excision. - Emphasis on regular skin checks biannually. 2. Vitreous Detachment - Observation advised for vitreous detachment. - Plan to defer surgical intervention unless symptoms escalate. 3. Hypothyroidism - Further thyroid function tests to ensure effective control. - Dosage adjustment contingent upon test findings. 4. Obesity - Addressed within context of thyroid and activity management. 5. Cardiac Arrhythmia - Noted improvement with control of hyperthyroid states. - Continued echocardiography surveillance. 6. Hyperlipidemia - Included in future lab evaluations. - Attention to familial hyperlipidemia. Discussion Notes The discussion reinforced the management plans for each condition. For skin lesions, I advised maintaining biannual dermatologic check-ups due to past basal and squamous cell carcinomas. Vitreous detachment was assessed, and the patient agreed to a conservative watchful waiting approach while remaining informed about possible future interventions if symptoms worsen. Hypothyroidism management required discussion around current symptoms and necessary levothyroxine adjustments, set for re-evaluation with pending TSH results. I addressed the cardiac concerns, primarily tied to prior hyperthyroid episodes with resolved arrhythmias post-appropriate intervention. We agreed upon the need for continued monitoring of hyperlipidemia given family history, necessitating repeat cholesterol tests. The patient was encouraged to continue reading and light activities for keeping active, whilst being cautious. Patient Instructions - Schedule and attend biannual dermatology follow-ups. - Monitor for any changes in vision; prepare for reassessment if symptoms worsen. - Follow up on thyroid blood test results and adjust medication dosage as needed. - Keep an active lifestyle mindful of diet and physical comfort. - Follow through with scheduled cholesterol testing in line with family health history. - Return for follow-up in three months or sooner if significant changes or concerns arise.
[2025-04-02 13:48] VITALS: BP 130/0; PULSE 63; TEMP 36.2; O2SAT 97; BMI 31.3
--- OUTSIDE RECORDS SUMMARY | 2025-04-02 14:08 | XMS_ITS ---
Author Organization [facility] Address [address] [place] [phone] Care Team Providers Care Real Estate Leasing Agent Name Role Phone TERI ROY Primary Care Provider Gentry Hughes Jr Unavailable Allergies Allergen (clinical drug ingredient) Drug/Non Drug [...] Problem Status W/U Status Risk Notes Problem [id number] Abnormal findings in stool (R19.5) Active confirmed Vital Signs Temperature 97.7 degrees Fahrenheit 05/12/20 Blood pressure systolic 000 mm Hg 05/12/20 Blood pressure diastolic 00 mm Hg 024 Height 5 ft 7 in in 05/12/2024 Weight 195 lbs 05/12/2024 BMI 30.54 kg/m2 05/12/2024 Encounters Encounter Location Date Provider Diagnosis [facility] [address] [place] [phone] 05/12/2024 Gentry Avelar Jr Abnormal findings in [...] * BALDOMERO MORTONDOB: [birth year] (74 yo M)Acc No.[id number]:05/12/2024 Progress Notes Patient:?BALDOMERO MORTON Provider:?Gentry Avelar MD :1950???Age:74 Y???Sex:Male Richie e:05/12/2024 Address[address], [facility] Pcp:TERI ROY Subjective: * Chief Complaints: * [...] ago after aVR and postop ileus at [facility]. Neither of these have shown any [...] MD Date:?0 05/12/2024 Generated for Printi azul/Fajazmineg/eTransmitting on:?04/02/2025 02:08 PM EDT History and Physical Notes * [...] ago after aVR and postop ileus at [facility]. Neither of these have shown any [...]
--- OUTSIDE RECORDS SUMMARY | 2025-04-02 14:08 | XMS_ITS ---
Author Organization [facility] Address [address] [place] [phone] Care Team Providers Care Tombstone Setter Name Role Phone TERI ROY Primary Care Provider Gentry Hughes Jr REASON FOR VISIT abn findings in stool Encounters Encounter Location Date Provider Diagnosis [facility] [address] [place] [phone] 07/15/2024 Gentry Avelar Jr Abnormal findings in stool R19.5 Assessments Encounter Date Diagnosis (ICD Code) Assessment Notes Treatment Notes Treatment Clinical Notes Section Notes 07/15/2024 Abnormal findings in stool (ICD-10 - R19.5) Plan Of Treatment No Information Progress Notes * BALDOMERO MORTONDOB: [birth year] (75 yo M)Acc No.[id number]:07/15/2024 COLON WITH MAC Patient:?BALDOMERO MORTON Provider:?Gentry Avelar MD :1950???Age:74 Y???Sex:Male Richie e:07/15/2024 [address] [place] Pcp:TERI ROY Subjective: * Chief Complaints: * ???1. Abn findings in stool. * Medical History:? Objective: * Vitals:? Assessment: * Assessment: 1.?Abnormal findings in stoo l - R19.5 (Primary)??? Plan: * Treatment: * Procedure Codes:?25629 DIAGN OSTIC COLONOSCOPY * * The named appointment provid er may or may not be the originator of this progress note, and it is not deemed complete until electronically signed by the appointment provider. Sign off status: Pending * Provider:?Gentry Avelar MD Date:?0 07/15/2024 Generated for Aranza liang/Soraya/Lenoreitting on:?04/02/2025 02:08 PM EDT
--- OUTSIDE RECORDS SUMMARY | 2025-04-02 14:08 | XMS_ITS | Clinical Summary ---
Author Organization [facility] Address [address] [place] [address] Care Team Providers Care Gravel Inspector Name Role Phone Unavailable Primary Care Provider [...]
--- OUTSIDE RECORDS SUMMARY | 2025-04-02 14:08 | XMS_ITS | Patient Health Record ---
Author Organization [facility] Address [address] [place] [phone] Care Team Providers Care Multiple Games Dealer Name Role Phone KIRILL TERI Primary Care [...] Problem Status W/U Status Risk Notes Problem [id number] Abnormal findings in stool (R19.5) Active confirmed Vital Signs Temperature 97.7 degrees Fahrenheit 05/12/2024 Blood pressure diastolic 00 mm Hg 05/12/2024 Height 5 ft 7 in in 05/12/2024 Blood pressure systolic 000 mm Hg 05/12/2024 Weight 195 lbs 05/12/2024 BMI 30.54 kg/m2 05/12/2024 Encounters Encounter Location Date Provider Diagnosis [facility] [address] [place] [phone] 07/15/2024 Gentry Avelar Jr Abnormal findings in stool R19.5 [facility] [address] [place] [phone] 05/12/2024 Gentry Avelar Jr Abnormal findings in stool R19.5 [facility] [address] [place] [phone] 04/17/2024 Gentry Avelar Jr [facility] [address] [place] [phone] 05/12/2024 Gentry Avelar Jr Assessments Encounter Date [...] Insured Coverage Start Date Coverage End Date [facility] [id number] [place] [address] [id number] BALDOMERO YAO Self - patient is the insured Medical (General) History Medical History History ICD Code Bicuspid aortic valve status post replac ement, current bioprosthetic valve Ascending aortic aneurysm repair PFO pacemaker Glaucoma and cataract repairs Hearing deficit BPH amaurosis fugax Gout Surgical History Surgery Date(Month/Year) AVR and PFO surgery thyroidectomy appendectomy pacemaker
--- OUTSIDE RECORDS SUMMARY | 2025-04-02 14:08 | XMS_ITS ---
Author Organization [facility] Address [address] [place] [phone] Care Team Providers Care Ordering Machine Operator Name Role Phone TERI ROY Primary Care Provider Jennifer Avelar Jr, Gentry Gan [phone] REASON FOR VISIT colonoscopy Encounters Encounter Location Date Provider Diagnosis [facility] [address] [place] [phone] 05/12/2024 Gentry Avelar Jr Plan Of Treatment No Information Progress Notes * BALDOMERO MORTONDOB: [birth year] (74 yo M)Acc No.[id number]:05/12/2024 Patient:?SELENE BALDOMERO :1950???Age:74 Y???Sex:Male Address:[address] [place], [address] * true * Date:? Generated for Printi azul/Fajazmineg/eTransmitting on:?04/02/2025 02:08 PM EDT
== END 2025-04-02 14:16 | disposition home or self-care (01) ==
LOC: HO.HMCH 13:32
PROVIDERS: PCP Internal Medicine; Visit Provider Internal Medicine
DX: I10 Essential (primary) hypertension (principal); E03.9 Hypothyroidism, unspecified; C44.320 Squamous cell carcinoma of skin of unspecified parts of face; Z00.00 Encounter for general adult medical examination without abnormal findings

== ENCOUNTER → 2025-04-02 13:31 | Outpatient (BNVA) | payer BC, SELFPAY | PROVIDERS: PCP Internal Medicine; Visit Provider Internal Medicine | DX: Z13.89 Encounter for screening for other disorder (principal) ==

== ENCOUNTER 2025-04-06 14:37 | Outpatient (AMB) | payer BC, SELFPAY ==
--- OUTSIDE RECORDS SUMMARY | 2025-04-06 14:39 | XMS_ITS ---
Author Organization [facility] Address [address] [place] [phone] Care Team Providers Care Cost Coordinator Name Role Phone TERI ROY Primary Care Provider Gentry Hughes Jr REASON FOR VISIT abn findings in stool Encounters Encounter Location Date Provider Diagnosis [facility] [address] [place] [phone] 07/15/2024 Gentry Avelar Jr Abnormal findings in stool R19.5 Assessments Encounter Date Diagnosis (ICD Code) Assessment Notes Treatment Notes Treatment Clinical Notes Section Notes 07/15/2024 Abnormal findings in stool (ICD-10 - R19.5) Plan Of Treatment No Information Progress Notes * BALDOMERO MORTONDOB: [birth year] (75 yo M)Acc No.[id number]:07/15/2024 COLON WITH MAC Patient:?BALDOMERO MORTON Provider:?Gentry Avelar MD :1950???Age:74 Y???Sex:Male Richie e:07/15/2024 Address[address] [place] Pcp:TERI ROY Subjective: * Chief Complaints: * ???1. Abn findings in stool. * Medical History:? Objective: * Vitals:? Assessment: * Assessment: 1.?Abnormal findings in stoo l - R19.5 (Primary)??? Plan: * Treatment: * Procedure Codes:?86467 DIAGN OSTIC COLONOSCOPY * * The named appointment provid er may or may not be the originator of this progress note, and it is not deemed complete until electronically signed by the appointment provider. Sign off status: Pending * Provider:?Gentry Avelar MD Date:?0 07/15/2024 Generated for Aranza liang/Soraya/Lenoreitting on:?04/06/2025 02:39 PM EDT
--- OUTSIDE RECORDS SUMMARY | 2025-04-06 14:39 | XMS_ITS | Clinical Summary ---
Author Organization [facility] Address [address] [place] [address] Care Team Providers Care Porcelain Technician Name Role Phone Unavailable Primary Care Provider [...]
--- OUTSIDE RECORDS SUMMARY | 2025-04-06 14:40 | XMS_ITS ---
Author Organization [facility] Address [address] [place] [phone] Care Team Providers Care Bakery Machine Mechanic Name Role Phone TERI ROY Primary Care [...] Problem Status W/U Status Risk Notes Problem [id number] Abnormal findings in stool (R19.5) Active confirmed Vital Signs Temperature 97.7 degrees Fahrenheit 05/12/20 Blood pressure systolic 000 mm Hg 05/12/20 Blood pressure diastolic 00 mm Hg 024 Height 5 ft 7 in in 05/12/2024 Weight 195 lbs 05/12/2024 BMI 30.54 kg/m2 05/12/2024 Encounters Encounter Location Date Provider Diagnosis [facility] [address] [place] [phone] 05/12/2024 Gentry Avelar Jr Abnormal findings in [...] * BALDOMERO MORTONDOB: [birth year] (74 yo M)Acc No.[id number]:05/12/2024 Progress Notes Patient:?BALDOMERO MORTON Provider:?Gentry Avelar MD :1950???Age:74 Y???Sex:Male Richie e:05/12/2024 Address[address], [facility] Pcp:TERI ROY Subjective: * Chief Complaints: * [...] ago after aVR and postop ileus at [facility]. Neither of these have shown any specific [...] MD Date:?0 05/12/2024 Generated for Printi azul/Fajazmineg/eTransmitting on:?04/06/2025 02:40 PM EDT History and Physical Notes * [...] ago after aVR and postop ileus at [facility]. Neither of these have shown any specific [...]
--- OUTSIDE RECORDS SUMMARY | 2025-04-06 14:40 | XMS_ITS | Patient Health Record ---
Author Organization [facility] Address [address] [place] [phone] Care Team Providers Care Practical Nursing Faculty Name Role Phone KIRILL TERI Primary Care [...] Problem Status W/U Status Risk Notes Problem [id number] Abnormal findings in stool (R19.5) Active confirmed Vital Signs Temperature 97.7 degrees Fahrenheit 05/12/2024 Blood pressure diastolic 00 mm Hg 05/12/2024 Height 5 ft 7 in in 05/12/2024 Blood pressure systolic 000 mm Hg 05/12/2024 Weight 195 lbs 05/12/2024 BMI 30.54 kg/m2 05/12/2024 Encounters Encounter Location Date Provider Diagnosis [facility] Outpatient [address] [place] [phone] 07/15/2024 Gentry Avelar Jr Abnormal findings in stool R19.5 [facility] [address] [place] [phone] 05/12/2024 Gentry Avelar Jr Abnormal findings in stool R19.5 [facility] [address] [place] [phone] 04/17/[address] [facility] [address] [place] [phone] 05/12/2024 Gentry Avelar Jr Assessments Encounter Date [...] Insured Coverage Start Date Coverage End Date [facility] [address] [place] [address] [id number] BALDOMERO YAO Self - patient is the insured Medical (General) History Medical History History ICD Code Bicuspid aortic valve status post replac ement, current bioprosthetic valve Ascending aortic aneurysm repair PFO pacemaker Glaucoma and cataract repairs Hearing deficit BPH amaurosis fugax Gout Surgical History Surgery Date(Month/Year) AVR and PFO surgery thyroidectomy appendectomy pacemaker
--- OUTSIDE RECORDS SUMMARY | 2025-04-06 14:40 | XMS_ITS ---
Author Organization [facility] Address [address] [place] [phone] Care Team Providers Care Appliances Sample Maker Name Role Phone TERI ROY Primary Care Provider Jennifer Avelar Jr, Gentry Gan REASON FOR VISIT colonoscopy Encounters Encounter Location Date Provider Diagnosis [facility] [address] [place] [phone] 05/12/2024 Gentry Avelar Jr Plan Of Treatment No Information Progress Notes * BALDOMERO MORTONDOB: [birth year] (74 yo M)Acc No.[id number]:05/12/2024 Patient:?SELENE BALDOMERO :1950???Age:74 Y???Sex:Male Address: [place], [address] * true * Date:? Generated for Printi azul/Tiag/eTransmitting on:?04/06/2025 02:40 PM EDT
--- NOTE | 2025-04-06 14:53 | A.OFFVIS_ITS ---
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 Required: No Allergies Iodinated Contrast Media [IV Dye, Iodine Containing] Allergy (Severe, Verified 04/02/25 13:48) VASCULAR COLLAPSE and vascular spasm simvastatin [SIMVASTATIN] Allergy (Intermediate, Verified 04/02/25 13:48) MYALGIA vancomycin [VANCOMYCIN] Allergy (Intermediate, Verified 04/02/25 13:48) itching, rash and hives atorvastatin [ATORVASTATIN] Allergy (Mild, Verified 04/02/25 13:48) VISUAL HALOS clopidogrel [From Plavix] Adverse Reaction (Intermediate, Verified 04/02/25 13:48) Diarrhea Medication List - Last Reconciled 04/06/25 by Ad Gallardo MD allopurinol 300 mg PO DAILY aspirin 81 mg PO DAILY celecoxib 200 mg PO DAILY cholecalciferol (vitamin D3) 25 mcg PO DAILY cyclobenzaprine 10 mg PO BEDTIME PRN dorzolamide-timolol 22.3-6.8 mg/mL 1 drp ophthalmic (eye) BID ezetimibe 10 mg PO DAILY latanoprost 0.005% 1 drp ophthalmic (eye) BEDTIME levothyroxine 100 mcg PO DAILY mecobalamin (vitamin B12) 1,000 mcg PO DAILY metoprolol succinate ER 100 mg PO BID rosuvastatin 10 mg (1/2 x 20 mg) PO DAILY ticagrelor (Brilinta) 60 mg PO BID valsartan-hydrochlorothiazide 160-12.5 mg 1 tab PO DAILY HPI Comments Details: Shashank comes for follow-up. He has not had any new neurologic or visual issues. Taking all his medications. Noted his some increase acute mostly especially after recent bump on his left hand. Patient had couple of episodes of rapid heart rate noted on implantable loop recorder not consistent with atrial fibrillation. He has not had any worsening heart failure symptoms. Recent echocardiogram shows normal LV ejection fraction with pseudonormal filling pattern with normally function bioprosthetic aortic valve with mildly increased right ventricular chamber size. He denies any exertional chest pain. Worried about atherosclerotic disease throughout. Also worried about atrial fibrillation although there was no clear evidence of this such comes for device check [facility] Medical History (Updated 04/08/25 @ 14:17 by Ad Gallardo MD) Squamous cell carcinoma, face Hypothyroidism ASVD (arteriosclerotic vascular disease) Glaucoma AAA (abdominal aortic aneurysm) Bicuspid aortic valve Benign prostate hyperplasia Trigger finger of all digits of left hand Raynauds phenomenon Blindness, sudden AV block Hypertension Surgical History History of removal of pigmented skin lesion History of colonoscopy (~07/15/24) Hx of cataract extraction History of surgery History of basal cell carcinoma excision History of appendectomy History of permanent cardiac pacemaker placement History of thyroidectomy Status post percutaneous patent foramen ovale closure Status post ascending aortic replacement History of aortic valve replacement Social History Housing: House Alcohol intake: current Alcohol intake frequency: a few times a week Alcohol type: beer Patient Tobacco Use Status: Never used Tobacco e-Cigarette/Vaping Use: Never Used Second Hand Smoke Exposure: No service: No 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 occupational status: employed and 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 needs: No Hearing needs: Yes (hearind aides) Vision needs: Yes (glasses) Review of Systems Const Denies chills, Denies fatigue, Denies fever(s), Denies frequent falls, Denies weakness, Denies weight gain and Denies weight loss ENT Denies dizziness Card Denies chest pain, Denies leg edema, Denies lightheadedness, Denies palpitations, Denies dyspnea, Denies dyspnea on exertion, Denies orthopnea and Denies other (loss of consciousness) Resp Denies cough, Denies dyspnea and Denies dyspnea on exertion GI Denies hematochezia and Denies change in stool character Musc Denies abnormal gait, Denies muscle weakness, Denies numbness, Denies radiating pain into limb and Denies tingling Neuro Denies abnormal gait, Denies dizziness, Denies frequent falls, Denies numbness, Denies tingling and Denies weakness Endo Denies fatigue and Denies palpitations Physical Exam Vital Signs: Last Vital Signs Pulse 68 04/06/25 14:54 BP 120/74 04/06/25 14:54 BMI result Body Mass Index 31.4 Const General: cooperative, comfortable, no acute distress, alert and awake Nutritional Appearance: obese Orientation/consciousness: patient oriented x3 Limitations: no limitations Neck Neck: Yes trachea midline, Yes supple and Yes no JVD Carotids: normal carotid upstroke and no bruits Resp Effort & Inspection: normal respiratory effort Auscultation: bronchovesicular breath sounds on the right (Posterior lung field) Cardio Jugular venous distension: no JVD Palpation: normal PMI Rate: regular rate Rhythm: regular rhythm Heart sounds: S1 normal heart sound present, S2 normal heart sound present, no click, no gallops and Murmur heart sound present systolic early, decrescendo and crescendo GI Auscultation: normal bowel sounds Skin General skin exam: no rashes or lesions noted Neuro General: patient oriented x3 and no focal motor deficits Extrem General: Yes no clubbing, cyanosis or edema Psych Appearance: grossly normal Office Procedures Cardiac Device Check Cardiac Device Check Details: Single-chamber Saint Shan pacemaker in place. Programmed in VVI at 40 beats per minute. Minimal ventricular pacing noted. One episode of fast ventricular rate noted, not correlating with his implantable loop recorder reading. Ventricular sensing is excellent. Ventricular capture thresholds excellent. Pacing lead impedance is stable. Battery life is at about 5 years [id number] Cardiac Device Check, leadless/single lead pacemaker Procedure code (CPT) selection complete Assessment & Plan Assessment & Plan (1) History of aortic valve replacement: Comment: Aortic stenosis secondary to bicuspid aortic valve undergoing repair at age 14 at [facility]. Followed by in 1990 undergoing Saint Shan 23 mm aortic valve replacement at [facility] for stenosis. Surgery was complicated at that time with RV laceration, which had to be repaired. 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 Has no signs or symptoms of heart failure. Bioprosthetic aortic valve working really well at this point time. Continue to monitor annually by echocardiogram. SBE prophylaxis as per ACC/aha guidelines. Continue aggressive vascular risk factor modification. Also had concomitant aortic repair which seems to be working well. Currently on dual antiplatelet therapy (2) Status post percutaneous patent foramen ovale closure: Code(s): Z87.74 - Personal history of (corrected) congenital malformations of heart and circulatory system Category: Surgical Plan: Status post PFO closure with a device. This was done in the setting of recurrent neurologic events although he had recurrent amaurosis fugax after PFO closure of unclear etiology. (3) Cardiac pacemaker: Code(s): Z95.0 - Presence of cardiac pacemaker Category: Medical Plan: Cardiac pacemaker in-situ, single-chamber placed after open heart surgery for t ransient AV block. Has not been much dependent on his pacemaker. Continue monitor remotely. (4) Implantable loop recorder present: Code(s): Z95.818 - Presence of other cardiac implants and grafts Category: Medical Plan: Implantable loop recorder in place. This was placed after patient had recurrent what appear to be embolic event. Currently on dual antiplatelet therapy. No evidence of atrial fibrillation. Will continue monitor remotely. (5) ASVD (arteriosclerotic vascular disease): Comment: follows w/[facility] Code(s): I70.90 - Unspecified atherosclerosis Category: Medical Plan: Diffuse and significant atherosclerotic vascular disease. Currently on dual antiplatelet therapy because of the same. Doing well with it. No significant bleeding risk at this point time. Blood pressure is currently well optimized on current therapy. Importance of blood pressure control was discussed. Continue aggressive risk factor modification. LDL is well optimized on current therapy. Encouraged to maintain activity level as tolerated. No further cardiac workup is indicated at this point time. Will follow up in the clinic in 6 months time, sooner p.r.n.. Greater than 40 minutes was spent in managing his care Medications: Changed From levothyroxine 100 mcg PO DAILY 90 tabs 1RF To levothyroxine one day a week 150mcg 100 mcg PO DAILY Coding Level of Care Code Est Pt Level 5 (23551) Complex EM visit Add On G2211 Diagnoses History of aortic valve replacement Z95.2 Status post percutaneous patent foramen ovale closure Z87.74 Cardiac pacemaker Z95.0 Implantable loop recorder present Z95.818 ASVD (arteriosclerotic vascular disease) I70.90 CPT Codes Cardiac Device Check - Cardiac Device 1: 04254-LX Cardiac Device Check, leadless/single lead pacemaker ([id number])
[2025-04-06 14:54] VITALS: BP 120/74; PULSE 68; BMI 31.4
== END 2025-04-06 15:39 | disposition home or self-care (01) ==
PROVIDERS: PCP Internal Medicine; Visit Provider Internal Medicine Cardiovascular Disease
DX: I70.90 Unspecified atherosclerosis (principal); Z95.2 Presence of prosthetic heart valve; Z87.74 Personal history of (corrected) congenital malformations of heart and circulatory system; Z95.0 Presence of cardiac pacemaker; Z95.818 Presence of other cardiac implants and grafts
CPT/HCPCS: 93279; 99215

== ENCOUNTER → 2025-04-20 23:59 | Outpatient (BNV) | payer BC, SELFPAY ==
--- NOTE | 2025-04-27 15:41 | MHC.OFFVIS ---
Intake Visit Reasons: remote ILR check- [employer] Allergies Iodinated Contrast Media [IV Dye, Iodine Containing] Allergy (Severe, Verified 04/02/25 13:48) VASCULAR COLLAPSE and vascular spasm simvastatin [SIMVASTATIN] Allergy (Intermediate, Verified 04/02/25 13:48) MYALGIA vancomycin [VANCOMYCIN] Allergy (Intermediate, Verified 04/02/25 13:48) itching, rash and hives atorvastatin [ATORVASTATIN] Allergy (Mild, Verified 04/02/25 13:48) VISUAL HALOS clopidogrel [From Plavix] Adverse Reaction (Intermediate, Verified 04/02/25 13:48) Diarrhea [facility] Medical History (Updated 04/08/25 @ 14:17 by Ad Gallardo MD) Squamous cell carcinoma, face Hypothyroidism ASVD (arteriosclerotic vascular disease) Glaucoma AAA (abdominal aortic aneurysm) Bicuspid aortic valve Benign prostate hyperplasia Trigger finger of all digits of left hand Raynauds phenomenon Blindness, sudden AV block Hypertension Surgical History History of removal of pigmented skin lesion History of colonoscopy (~07/15/24) Hx of cataract extraction History of surgery History of basal cell carcinoma excision History of appendectomy History of permanent cardiac pacemaker placement History of thyroidectomy Status post percutaneous patent foramen ovale closure Status post ascending aortic replacement History of aortic valve replacement Social History Housing: House Alcohol intake: current Alcohol intake frequency: a few times a week Alcohol type: beer Patient Tobacco Use Status: Never used Tobacco e-Cigarette/Vaping Use: Never Used Second Hand Smoke Exposure: No service: No 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 No pauses or atrial fibrillation noted [id number] Cardiac Interrogation, subcut cardiac rhythm monitor Procedure code (CPT) selection complete Assessment & Plan Assessment & Plan (1) Implantable loop recorder present: Code(s): Z95.818 - Presence of other cardiac implants and grafts Category: Medical Plan: See above Coding Level of Care Code Procedure Only Diagnoses Implantable loop recorder present Z95.818 CPT Codes Cardiac Device Check - Cardiac Device 16: 56852-[id number] Cardiac Interrogation, subcut cardiac rhythm monitor ([id number])
== END ==
PROVIDERS: PCP Internal Medicine; Visit Provider Internal Medicine Cardiovascular Disease
DX: Z45.09 Encounter for adjustment and management of other cardiac device (principal)
CPT/HCPCS: 93298

== ENCOUNTER 2025-04-23 07:44 | Outpatient (REF) | payer BC, SELFPAY ==
--- OUTSIDE RECORDS SUMMARY | 2025-04-23 07:47 | XMS_ITS ---
Author Organization [facility] Address [address] [place] [phone] Care Team Providers Care Probation Supervisor Name Role Phone TERI ROY Primary Care Provider Gentry Hughes Jr REASON FOR VISIT abn findings in stool Encounters Encounter Location Date Provider Diagnosis [facility] Outpatient [address] [place] [phone] 07/15/2024 Gentry Avelar Jr Abnormal findings in stool R19.5 Assessments Encounter Date Diagnosis (ICD Code) Assessment Notes Treatment Notes Treatment Clinical Notes Section Notes 07/15/2024 Abnormal findings in stool (ICD-10 - R19.5) Plan Of Treatment No Information Progress Notes * BALDOMERO MORTONDOB: [birth year] (75 yo M)Acc No.[id number]:07/15/2024 COLON WITH MAC Patient:?BALDOMERO MORTON Provider:?Gentry Avelar MD :1950???Age:74 Y???Sex:Male Richie e:07/15/2024 Address: [id number] Pcp:TERI ROY Subjective: * Chief Complaints: * ???1. Abn findings in stool. * Medical History:? Objective: * Vitals:? Assessment: * Assessment: 1.?Abnormal findings in stoo l - R19.5 (Primary)??? Plan: * Treatment: * Procedure Codes:?82715 DIAGN OSTIC COLONOSCOPY * * The named appointment provid er may or may not be the originator of this progress note, and it is not deemed complete until electronically signed by the appointment provider. Sign off status: Pending * Provider:?Gentry Avelar MD Date:?0 07/15/2024 Generated for Aranza liang/Soraya/Lenoreitting on:?04/23/2025 07:47 AM EDT
[2025-04-23 09:32] LABS: Cholesterol 118 mg/dL (<200); HDL Cholesterol 62 mg/dL (>40); LDL Cholesterol Calculated 46 mg/dL (<100); Triglycerides 51 mg/dL (<150)
[2025-04-24 08:37] LABS: TSH reflex Free T4 0.99 uIU/mL (0.32-4.0)
== END 2025-04-23 07:45 | disposition home or self-care (01) ==
LOC: HO.LAB 07:44
PROVIDERS: PCP Internal Medicine; Visit Provider Internal Medicine
DX: E78.01 Familial hypercholesterolemia (principal)
CPT/HCPCS: 36415; 80061; 84443

== ENCOUNTER → 2025-05-21 23:59 | Outpatient (BNV) | payer BC, SELFPAY ==
--- NOTE | 2025-06-01 15:56 | A.OFFVIS_ITS ---
Intake Visit Reasons: remote ILR check- [employer] Allergies Iodinated Contrast Media (IV Dye, Iodine Containing) Allergy (Severe, Verified 04/02/25 13:48) VASCULAR COLLAPSE and vascular spasm simvastatin (SIMVASTATIN) Allergy (Intermediate, Verified 04/02/25 13:48) MYALGIA vancomycin (VANCOMYCIN) Allergy (Intermediate, Verified 04/02/25 13:48) itching, rash and hives atorvastatin (ATORVASTATIN) Allergy (Mild, Verified 04/02/25 13:48) VISUAL HALOS clopidogrel (From Plavix) Adverse Reaction (Intermediate, Verified 04/02/25 13:48) Diarrhea [facility] Medical History (Updated 04/08/25 @ 14:17 by Ad Gallardo MD) Squamous cell carcinoma, face Hypothyroidism ASVD (arteriosclerotic vascular disease) Glaucoma AAA (abdominal aortic aneurysm) Bicuspid aortic valve Benign prostate hyperplasia Trigger finger of all digits of left hand Raynauds phenomenon Blindness, sudden AV block Hypertension Surgical History History of removal of pigmented skin lesion History of colonoscopy (~07/15/24) Hx of cataract extraction History of surgery History of basal cell carcinoma excision History of appendectomy History of permanent cardiac pacemaker placement History of thyroidectomy Status post percutaneous patent foramen ovale closure Status post ascending aortic replacement History of aortic valve replacement Social History Housing: House Alcohol intake: current Alcohol intake frequency: a few times a week Alcohol t ype: beer Patient Tobacco Use Status: Never used Tobacco e-Cigarette/Vaping Use: Never Used Second Hand Smoke Exposure: No service: No 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 No arrhythmias or pauses noted [id number] Cardiac Interrogation, subcut cardiac rhythm monitor Procedure code (CPT) selection complete Assessment & Plan Assessment & Plan (1) Implantable loop recorder present: Code(s): Z95.818 - Presence of other cardiac implants and grafts Category: Medical Plan: See above Coding Level of Care Code Procedure Only Diagnoses Implantable loop recorder present Z95.818 CPT Codes Cardiac Device Check - Cardiac Device 16: 46009-Kidyme Cardiac Interrogation, subcut cardiac rhythm monitor ([id number])
== END ==
PROVIDERS: PCP Internal Medicine; Visit Provider Internal Medicine Cardiovascular Disease
DX: Z45.09 Encounter for adjustment and management of other cardiac device (principal)
CPT/HCPCS: 93298

== ENCOUNTER → 2025-06-21 23:59 | Outpatient (BNV) | payer BC, SELFPAY ==
--- NOTE | 2025-06-23 15:44 | MHC.OFFVIS ---
Intake Visit Reasons: remote ILR check- [employer] Allergies Iodinated Contrast Media (IV Dye, Iodine Containing) Allergy (Severe, Verified 04/02/25 13:48) VASCULAR COLLAPSE and vascular spasm simvastatin (SIMVASTATIN) Allergy (Intermediate, Verified 04/02/25 13:48) MYALGIA vancomycin (VANCOMYCIN) Allergy (Intermediate, Verified 04/02/25 13:48) itching, rash and hives atorvastatin (ATORVASTATIN) Allergy (Mild, Verified 04/02/25 13:48) VISUAL HALOS clopidogrel (From Plavix) Adverse Reaction (Intermediate, Verified 04/02/25 13:48) Diarrhea [facility] Medical History (Updated 04/08/25 @ 14:17 by Ad Gallardo MD) Squamous cell carcinoma, face Hypothyroidism ASVD (arteriosclerotic vascular disease) Glaucoma AAA (abdominal aortic aneurysm) Bicuspid aortic valve Benign prostate hyperplasia Trigger finger of all digits of left hand Raynauds phenomenon Blindness, sudden AV block Hypertension Surgical History History of removal of pigmented skin lesion History of colonoscopy (~07/15/24) Hx of cataract extraction History of surgery History of basal cell carcinoma excision History of appendectomy History of permanent cardiac pacemaker placement History of thyroidectomy Status post percutaneous patent foramen ovale closure Status post ascending aortic replacement History of aortic valve replacement Social History Housing: House Alcohol intake: current Alcohol intake frequency: a few times a week Alcohol type: beer Patient Tobacco Use Status: Never used Tobacco e-Cigarette/Vaping Use: Never Used Second Hand Smoke Exposure: No service: No 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 No significant arrhythmias or pauses noted [id number] Cardiac Interrogation, subcut cardiac rhythm monitor Procedure code (CPT) selection complete Assessment & Plan Assessment & Plan (1) Implantable loop recorder present: Code(s): Z95.818 - Presence of other cardiac implants and grafts Category: Medical Plan: See above Coding Level of Care Code Procedure Only Diagnoses Implantable loop recorder present Z95.818 CPT Codes Cardiac Device Check - Cardiac Device 16: 28359-Pwyban Cardiac Interrogation, subcut cardiac rhythm monitor ([id number])
== END ==
PROVIDERS: PCP Internal Medicine; Visit Provider Internal Medicine Cardiovascular Disease
DX: Z45.09 Encounter for adjustment and management of other cardiac device (principal)
CPT/HCPCS: 93298

== ENCOUNTER → 2025-07-22 23:59 | Outpatient (BNV) | payer BC, SELFPAY ==
--- NOTE | 2025-08-04 14:33 | A.OFFVIS_ITS ---
Intake Visit Reasons: remote ILR check- [employer]tr[employer] Allergies Iodinated Contrast Media (IV Dye, Iodine Containing) Allergy (Severe, Verified 04/02/25 13:48) VASCULAR COLLAPSE and vascular spasm simvastatin (SIMVASTATIN) Allergy (Intermediate, Verified 04/02/25 13:48) MYALGIA vancomycin (VANCOMYCIN) Allergy (Intermediate, Verified 04/02/25 13:48) itching, rash and hives atorvastatin (ATORVASTATIN) Allergy (Mild, Verified 04/02/25 13:48) VISUAL HALOS clopidogrel (From Plavix) Adverse Reaction (Intermediate, Verified 04/02/25 13:48) Diarrhea [facility] Medical History (Updated 04/08/25 @ 14:17 by Ad Gallardo MD) Squamous cell carcinoma, face Hypothyroidism ASVD (arteriosclerotic vascular disease) Glaucoma AAA (abdominal aortic aneurysm) Bicuspid aortic valve Benign prostate hyperplasia Trigger finger of all digits of left hand Raynauds phenomenon Blindness, sudden AV block Hypertension Surgical History History of removal of pigmented skin lesion History of colonoscopy (~07/15/24) Hx of cataract extraction History of surgery History of basal cell carcinoma excision History of appendectomy History of permanent cardiac pacemaker placement History of thyroidectomy Status post percutaneous patent foramen ovale closure Status post ascending aortic replacement History of aortic valve replacement Social History Housing: House Alcohol intake: current Alcohol intake frequency: a few times a week Alcohol t ype: beer Patient Tobacco Use Status: Never used Tobacco e-Cigarette/Vaping Use: Never Used Second Hand Smoke Exposure: No service: No 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 No episodes of atrial fibrillation noted [id number] Cardiac Interrogation, subcut cardiac rhythm monitor Procedure code (CPT) selection complete Assessment & Plan Assessment & Plan (1) Implantable loop recorder present: Code(s): Z95.818 - Presence of other cardiac implants and grafts Category: Medical Plan: See above Coding Level of Care Code Procedure Only Diagnoses Implantable loop recorder present Z95.818 CPT Codes Cardiac Device Check - Cardiac Device 16: [id number] Cardiac Interrogation, subcut cardiac rhythm monitor ([id number])
== END ==
PROVIDERS: PCP Internal Medicine; Visit Provider Internal Medicine Cardiovascular Disease
DX: Z45.09 Encounter for adjustment and management of other cardiac device (principal)
CPT/HCPCS: 93298

== ENCOUNTER 2025-08-13 13:02 | Outpatient (AMB) | payer OTHER, MEDICARE, SELFPAY ==
--- OUTSIDE RECORDS SUMMARY | 2024-07-15 05:10 | XMS_ITS ---
Author Organization [facility] Address [address] [place] [phone] Care Team Providers Care Head Of Merchandise Buying Name Role Phone TERI ROY Primary Care Provider Gentry Hughes Jr REASON FOR VISIT abn findings in stool Encounters Encounter Location Date Provider Diagnosis [facility] [place] [address] [place] [phone] 07/15/2024 Gentry Avelar Jr Abnormal findings in stool R19.5 Assessments Encounter Date Diagnosis (ICD Code) Assessment Notes Treatment Notes Treatment Clinical Notes Section Notes 07/15/2024 Abnormal findings in stool (ICD-10 - R19.5) Plan Of Treatment No Information Progress Notes * BALDOMERO MORTONDOB: [birth year] (75 yo M)Acc No.[id number]:07/15/2024 COLON WITH MAC Patient: BALDOMERO LOZADA Provider: Milena Avelar MD :1950 A ge:74 Y S ex:Male Date:07/15/2024 Address[address] [id number] Pcp:TERI ROY Subjective: * Chief Complaints: * [...] 0 07/15/2024 Generated for Aranza liang/Soraya/Darlene on: 0 08/13/2025 05:48 PM EDT
--- NOTE | 2025-08-13 13:12 | MHC.PC.OV ---
Vital Signs 08/13/25 13:14 Height 5 ft 7 in Weight 204 lb 2 oz BMI 32.0 BP 132/68 Blood Pressure Location Lt brachial Position Sitting Pulse 54 Pulse Source Pulse Oximeter Temp 97.1 F Temp Source Temporal Artery Scan Pulse Oximetry (%) 98 Oxygen Delivery Method Room Air Intake Visit Reasons: 3 month f/u Intake Note: Patient is here to follow up on HTN, AAA, BPH, Hypothyroidism. Instructor Traffic Safety Required: No Laborer Road: Not Required per policy Accompanied by: Self / Same As Patient Allergies Iodinated Contrast Media (IV Dye, Iodine Containing) Allergy (Severe, Verified 08/13/25 13:13) VASCULAR COLLAPSE and vascular spasm simvastatin (SIMVASTATIN) Allergy (Intermediate, Verified 08/13/25 13:13) MYALGIA vancomycin (VANCOMYCIN) Allergy (Intermediate, Verified 08/13/25 13:13) itching, rash and hives atorvastatin (ATORVASTATIN) Allergy (Mild, Verified 08/13/25 13:13) VISUAL HALOS clopidogrel (From Plavix) Adverse Reaction (Intermediate, Verified 08/13/25 13:13) Diarrhea Tobacco use date assessed: 08/13/25 Fall risk assessment: No Falls in past year Last assessed Fall Risk: 08/13/25 Dental Screening Dental Screen Date: 04/02/25 FORMERLY [facility], [facility] Medical History (Updated 04/08/25 @ 14:17 by Ad Gallardo MD) Squamous cell carcinoma, face Hypothyroidism ASVD (arteriosclerotic vascular disease) Glaucoma AAA (abdominal aortic aneurysm) Bicuspid aortic valve Benign prostate hyperplasia Trigger finger of all digits of left hand Raynauds phenomenon Blindness, sudden AV block Hypertension Surgical History History of removal of pigmented skin lesion History of colonoscopy (~07/15/24) Hx of cataract extraction History of surgery History of basal cell carcinoma excision History of appendectomy History of permanent cardiac pacemaker placement History of thyroidectomy Status post percutaneous patent foramen ovale closure Status post ascending aortic replacement History of aortic valve replacement Social History Housing: House Alcohol intake: current Alcohol intake frequency: a few times a week Alcohol type: beer Patient Tobacco Use Status: Never used Tobacco e-Cigarette/Vaping Use: Never Used Second Hand Smoke Exposure: No service: No Current occupational status: employed and 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 needs: No Hearing needs: Yes (hearind aides) Vision needs: Yes (glasses) Questionnaire Thrive Questionnaire Date Thrive assessed: 03/26/25 I am a: Patient What is your living situation today?: I have a steady place to live Within the past 12 months, did the food you bought not last and you didn't have the money to get more?: Never true Within the past 12 months, did you worry whether your food would run out before you got money to buy more?: Never true Do you have trouble paying for medicines?: No Do you have trouble getting transportation to medical appointments?: No Do you have trouble paying your heating and electricity bill?: No Do you have trouble taking care of your child, family member or friend?: No Do you have trouble with day-to-day activities such as bathing, preparing meals, shopping, managing finances, etc.?: No Are you currently unemployed and looking for a job?: No Are you interested in more education?: No Please select the resources that you would like help with: None Currently or been in a relationship where the following occur: No concerns reported THRIVE Score: 0 WARREN-7 AMB Questionnaire WARREN-7 Date WARREN - 7 assessed: 04/02/25 Source: Developed by Drs. Gurjit Ledezma, Sara Christianson, Enrique Solano and colleagues, with an educational diego from [employer]. Physical exam (Primary Care) Vital Signs: Last Vital Signs Temp 97.1 F 08/13/25 13:14 Pulse 54 08/13/25 13:14 BP 132/68 08/13/25 13:14 Pulse Ox 98 08/13/25 13:14 Oxygen Delivery Method Room Air 08/13/25 13:14 BMI result Body Mass Index 32.0 Tobacco/Smoking Status: Tobacco use Status Tobacco use date assessed 08/13/25 08/13/25 13:19 Patient Tobacco Use Status Never used Tobacco 08/13/25 13:19 e-Cigarette/Vaping Use Never Used 08/13/25 13:19 Thrive Assessment: Date of Thrive Assessment Date Thrive assessed 03/26/25 08/13/25 13:19 Currently or been in a relationship where the following occur: No concerns reported Coding Level of Care Code Est Pt Level 4 (86100) Complex EM visit Add On G2211 Diagnoses Hypertension I10 Assessment & Plan Assessment & Plan (1) Hypertension: Code(s): I10 - Essential (primary) hypertension Category: Medical Plan: History of Present Illness - The patient is a 75-year-old male presenting for a routine follow-up and management of chronic conditions. - Retinal issue with vitreous fold: The patient reports trouble with the right eye, suspected to be a retinal problem with a fold in the vitreous. He experienced a sensation similar to lightning, which was attributed to the vitreous fold pulling away from the retina. The help desk internship confirmed no retinal tears and is monitoring the condition, with a follow-up scheduled next month. - Glaucoma: The patient is under ophthalmologic care for glaucoma, with ongoing monitoring. - Hypertension: The patient's blood pressure was recorded at 132/68 mmHg, slightly higher than normal. He is currently on metoprolol, valsartan, and hydrochlorothiazide, and requires refills for these medications. - Cardiac arrhythmia with pacemaker: The patient has a single-lead pacemaker set at 40 bpm due to previous presyncopal episodes and right bundle left anterior hemiblock. He reports feeling the pacing, which is attributed to the single lead causing the heart to bump against closed valves. - Arthritis: The patient experiences arthritis in the left finger, knee, and hip, with associated swelling and locking of the finger. He manages the condition with passive stretching and has been able to use a treadmill without exacerbating symptoms. Social History - Correction: The patient is semi-retired, working part-time, and spends his leisure time reading historical books. - Exercise: The patient uses a treadmill occasionally and manages arthritis symptoms with passive stretching. Review of Systems - Ophthalmologic: Reports trouble with the right eye, sensation similar to lightning, and vitreous fold issues. - Cardiovascular: Denies recent heart condition issues since thyroid medication adjustment. - Musculoskeletal: Reports arthritis in the left finger, knee, and hip, with swelling and locking of the finger. Physical Exam General: Cooperative and healthy appearing Nutritional Appearance: Well nourished Orientation/consciousness: Patient oriented x3 Limitations: No limitations Head: Normal to inspection General: Appearance normal, both eyes and all related structures Neck: Normal visual inspection Chest: Normal palpation of entire chest wall Respiratory: Normal respiratory effort Neurology: Patient oriented x3 Results - Labs: Thyroid function test in April showed TSH at 0.99, which was within normal limits. Plan - The patient will follow up with the help desk internship next month for the retinal issue and glaucoma monitoring. - Blood pressure management will continue with current medications, and refills will be provided. - Blood work will be ordered to monitor thyroid function and other relevant parameters. - The patient is advised to continue passive stretching exercises for arthritis management and to use the treadmill as tolerated. Discussion Notes I discussed with the patient the importance of following up with the help desk internship for his retinal and glaucoma issues. We reviewed his blood pressure management plan and confirmed that refills for his medications will be provided. I also emphasized the need for regular blood work to monitor his thyroid function and other health parameters. Additionally, I advised him to continue with passive stretching exercises to manage his arthritis and to use the treadmill as tolerated. We agreed on the importance of these measures in maintaining his overall health and well-being. Patient Instructions - Follow up with your help desk internship next month for your eye conditions. - Continue taking your blood pressure medications as prescribed and ensure you have refills. - Get your blood work done as ordered to monitor your thyroid and other health parameters. - Engage in passive stretching exercises and use the treadmill as tolerated to manage arthritis symptoms. Orders: Orders Basic Metabolic Panel Today I10 - Essential (primary) hypertension Lipid Panel Today I10 - Essential (primary) hypertension Thyroid Stimulating Hormone Today I10 - Essential (primary) hypertension Complete Blood Count no Diff Today I10 - Essential (primary) hypertension Liver Panel Today I10 - Essential (primary) hypertension UA and rflx microscopic Today I10 - Essential (primary) hypertension
[2025-08-13 13:14] VITALS: BP 132/68; PULSE 54; TEMP 36.2; O2SAT 98; BMI 32.0
--- OUTSIDE RECORDS SUMMARY | 2025-08-13 17:48 | XMS_ITS ---
Author Name [facility] Organization Unknown Care Team Organization Name Specialty Phone Email Start Date End Da te Office of the Phone Counselor ([facility]) 10/03/2024
--- OUTSIDE RECORDS SUMMARY | 2025-08-13 17:48 | XMS_ITS | Clinical Summary ---
Author Organization [facility] Address [address] [place] [address] Care Team Providers Care Cassandra Developer Name Role Phone Unavailable Primary Care Provider [...] 1-dose 75+ series) 01/27/2024 Influenza Vaccine (#1) 2025 Hepatitis B Vaccines Aged Out No long er eligible based on patient's age to complete this topic RSV Ped < 20 months Aged Out No longe r eligible based on patient's age to complete this topic
--- OUTSIDE RECORDS SUMMARY | 2025-08-13 17:48 | XMS_ITS | Encounter Summary ---
Author Organization [facility] Address [address] [place] [address] Phone Care Team Providers Care Electric Repair Supervisor Name Role Phone Boo Dangelo MD Primary Care Provider Encounter Details Date Type Department Care Team (Late st Contact Info) Description 07/25/2019 Procedure [place] [facility] Cardiac Packaging Assembler [address], [address], [address] [place] [address] Social History Tobacco Use Types Packs/Day Years Used Date Smoking Tobacco: Never Smokeless Tobacco: Never Alcohol Use Standard Drinks/Week Comments Yes 0 (1 standard drink = 0.6 oz pur e alcohol) 2-3 glasses wine/day Sex and Gender Information Value Date Recorded Sex Assigned at Not on file Legal Sex Male 5:35 PM EST Gender Identity Not on file Sexual Orientation Not on file documented as of this encounter Plan of Treatment Not on file documented as of this encounter Visit Diagnoses Not on filedocumented in this encounter Care Teams Electric Repair Supervisor Relationship Specialty Start Date End Date Boo Dangelo MD [address] [place] [address] PCP - General 05/19/14 documented as of this encounter Additional Source Comments The information contained in this document represents components of the legal health record. It is not the complete legal health record.[facility]
--- OUTSIDE RECORDS SUMMARY | 2025-08-13 17:48 | XMS_ITS | Encounter Summary ---
Author Organization [facility] Address [address] [place] [address] Phone Care Team Providers Care Home Administrator Name Role Phone Boo Dangelo MD Primary Care Provider Encounter Details Date Type Department Care Team (Late st Contact Info) Description 07/18/2019 Procedure Pass [facility] Cardiac Lever Tender [address], [address], [address] [place] [address] Social History Tobacco Use Types [...] on filedocumented in this encounter Care Teams Home Administrator Relationship Specialty Start Date End Date Boo Dangelo MD [address] [place] [address] PCP - General 05/19/14 documented as of this encounter Additional Source Comments The information contained in this document represents components of the legal health record. It is not the complete legal health record.[facility]
--- OUTSIDE RECORDS SUMMARY | 2025-08-13 17:48 | XMS_ITS | Clinical Summary ---
Author Organization [employer] [facility] Address [address] [address] Phone Care Team Providers Care Machine Steak Tenderizer Name Role Phone Boo Dangelo MD Primary Care Provider Allergies Active Allergy Reactions Criticality Noted Date Comments Atorvastatin Other (See Comments) 03/31/2013 visual halos Iodinated Contrast Media Unknown High 02/24/2008 Happened at age 14, pt does not remember exact reaction Clopidogrel Diarrhea 07/25/2019 Simvastatin Myalgia 03/31/2013 Tolerates Crestor Vancomycin Hives Medium 06/22/2014 Medications valsartan-hydro CHLOROthiazide (DIOVAN-HCT) 160-12.5 mg per tablet Take 1 tablet by mouth daily. Active metoprolol succinate (TOPROL-XL) 100 MG 24 hr tablet Take 150 mg by mouth daily. Active rosuvastatin (CRESTOR) 10 MG tablet Take 10 mg by mouth daily. Active levothyroxine (SYNTHROID, LEVOTHROID) 137 MCG tablet Take 137 mcg by mouth every morning. 137 mg 6x weekly, and 1.5 tb on saturdays. Active allopurinol (ZYLOPRIM) 300 MG tablet Take 300 mg by mouth daily. Active latanoprost (XALATAN) 0.005 % ophthalmic solution Place 1 drop into the left eye nightly. Active aspirin 325 MG tablet Take 1 tablet (325 mg total) by mouth daily. Post cardiac catheterizati on. 30 tablet 11 07/25/2019 Active amoxicillin (AMOXIL) 500 MG capsule Take 4 capsules (2,000 mg total) by mouth as directed for 1 dose. Take 4 capsules (2000 mg total) 30-60 minutes before dental procedure. 4 capsule 2 07/25/2019 Active Active Problems Problem Noted Date Diagnosed Date Hyperlipidemia 07/25/2019 Assessment & Plan (07/25/2019 8:02 AM EDT): LDL 87 on Crestor 10 mg daily. -Increase to Crestor 20 mg for goal LDL <70 (will d/w Dr. Patterson re now vs defer to local spring setter) Allergy to iodinated contrast 07/24/2019 Assessment & Plan (07/25/2019 7:42 AM EDT): Pre-medicated with Prednisone 50mg 13 hr, 7 hr, and 1 hr prior to cath, Famotidine 40mg 1 h prior and Diphenhydramine 50mg 1 h prior all given at 7:05 am. Patent foramen ovale 01/23/2019 Assessment & Plan (10/09/2019 1:33 PM EST): -07/25/2019 PFO closure with a 25mm Amplatzer device -07/25/2019 TTE: no residual shunt w/ a bubble study. -10/09/2019 TTE: after our appointment today. 10/09/2019 It was a pleasure seeing Mr. Gruber today in follow-up s/p recent TCC of his PFO on 07/25/2019 with a 25mm Amplatzer Cribiform device. We are so pleased that he returns to the office doing so well from the cardiac standpoint without limitations/restrictions. We have offered for him to see Dr. Farshad Perez in follow-up for his migraines, but he wishes to see Dr. Ryan in follow-up in 12/2019. He has his f/u TTE following our appointment today and we will call him today once these results are available to us. If there continues to be no residual shunt, we would recommend that he decrease his ASA to 81mg daily. He is aware that he will require SBE prophylaxis for 6 months s/p closure and will plan to follow up with Dr. Gallardo at [facility] moving forward w/ a TTE in 1 year from his procedure date. We have encouraged him to call with any further questions/concerns in the meantime. Assessment & Plan (07/25/2019 8:10 AM EDT): PFO with TIA 05/2018 (amaurosis fugax) on ASA, and few months of episodic difficulty word finding, scotomas and CROOK, ?migraine vs TIA. -PFO closure with ICE and IV conscious sedation -Continue ASA 325 mg daily; will not be adding Plavix (d/t diarrhea side effect) or other P2Y12 inhibitor. -TTE with bubble study in post procedure area of fish hatchery laborer anticipating potential same day discharge -TTE and appt with Dr. Patterson in 4-6 weeks, 6 and 12 months after PFO closure- Dr. Patterson's office to arrange. -SBE prophylaxis for 6 months. -Activity restrictions per Dr. Patterson: no lifting of more than 5 lbs in the first week, then no strenuous activities or lifting over 50 lbs for weeks 2-6. Assessment & Plan (01/23/2019 10:08 PM EST): He is currently doing well. No acute indication to close PFO as atrial fibrillation still seems the most likely cause of TIA. We will continue to monitor, and have him see Dr Rosa again in a few months. If still no evidence of Atrial fibrillation, we will readdress question of PFO closure. Hypercoaguable workup will be done today. As an attempt at improving his migraines, will switch from aspirin to plavix 75 mg daily and assess response to symptoms. H/O aortic valve replacement 12/02/2018 Assessment & Plan (12/02/2018 10:28 AM EST): Clinically euvolemic without any additional exertional symptoms. TIA (transient ischemic attack) 12/02/2018 Assessment & Plan (12/02/2018 10:25 AM EST): The patient was previously managed with Coumadin, Plavix, and aspirin in light of history of transient ischemic attack and evidence of PFO with shunt. He was recently changed to aspirin only in light of the fact that his pacemaker and recent ZIO did not reveal any evidence of atrial fibrillation. I recommend continuation of monitoring of his rhythm through his pacemaker. Pacemaker 12/02/2018 Assessment & Plan (12/02/2018 10:27 AM EST): In person interrogation of the patient's [employer] pacemaker, implanted September 04, 2013 revealed the following. Battery longevity is 13.1-14 years voltage 2.98 V Bradycardia settings VVI 40 bpm and the patient is pacing less than 1% of the time No atrial fibrillation episodes detected Sensing 8.1 mV capture threshold 0.75 V at 0.5 ms lead impedance 810 ohms. I changed his ventricular high rate episode check rate from 175-150 bpm to increase sensitivity otherwise no changes made in his settings. Routine checks to continue -the patient wishes to continue following with his primary spring setter. Arteriosclerotic heart disease 08/03/2014 Overview (01/09/2015): Coronary arteriosclerosis Assessment & Plan (07/25/2019 8:08 AM EDT): 35% LM, 25% dominant RCA and 60% nondominant LCX at 2013 cath. ?R ENRIQUEZ with resolution post cath. -Coronary angiography, radial vs femoral approach TBD. Continue ASA, BB and statin. Assessment & Plan (12/02/2018 10:28 AM EST): The patient does not report any anginal symptoms today. No immediate plan for additional ischemic evaluation. Hypertensive disorder 08/03/2014 Overview (01/09/2015): Hypertensive disorder Assessment & Plan (07/25/2019 7:50 AM EDT): On BB and ARB/thiazide. Mild hyperkalemia, normal renal function. -Continue BB. Hold ARB/thiazide today, repeat K+ today and if remains high then advise to lower dietary potassium Assessment & Plan (12/02/2018 10:28 AM EST): Good blood pressure control on the current regimen, no changes today. Immunizations Immunization Administration Dates Next Due Influenza, Unspecified Formulation 08/10(Deferred: Patient Decision - , Ordered By: [id number]) Pneumococcal polysaccharide PPSV23 07/29/2014 Family History Medical History Relation Comments Valvular heart disease Brother bicuspid AV, pulmonic stenosis, [place] Coronary artery disease Father s/p CABG ; also had ASD Migraines Unspecified one child with h emiplegic migraine Relation Status Comments Brother Father Unspecified Social History Tobacco Use Types Packs/Day Years Used Date Smoking Tobacco: Never Smokeless Tobacco: Never Alcohol Use Standard Drinks/Week Comments Yes 0 (1 standard drink = 0.6 oz pur e alcohol) 2-3 glasses wine/day Education Answer Date Recorded Are you interested in more education? Not on marj e 03/24/2023 Are you concerned about learning? Not on file 03/24/2023 No 03/24/2023 No 03/24/2023 Digital Access Answer Date Recorded No 04/15/2023 No 04/15/2023 No 04/15/2023 Reliable internet access at home? Not on file 04/15/2023 Device with a working camera? Not on file Sex and Gender Information Value Date Recorded Sex Assigned at Not on file Legal Sex Male 5:35 PM EST Gender Identity Not on file Sexual Orientation Not on file Last Filed Vital Signs Vital Sign Reading Time Taken Comments Blood Pressure 139/81 10/09/2019 12:30 PM EST Pulse 60 10/09/2019 12:30 PM EST Temperature 35.9 C (96.7 F) 07/25/2019 6:52 AM EDT Respiratory Rate 16 07/25/2019 10:15 AM EDT Oxygen Saturation 95% 07/25/2019 1:00 PM EDT Inhaled Oxygen Concentration - - Weight 96.2 kg (212 lb) 10/09/2019 1:25 PM EST Height 170.2 cm (5' 7 ) 10/09/2019 1:25 PM EST Body Mass Index 33.2 10/09/2019 1:25 PM EST Plan of Treatment Health Maintenance Due Date Last Done Comments BLOOD PRESSURE 1949 DEPRESSION SCREENING 1961 HEPATITIS C SCREENING 1967 LIPID PANEL 1967 ZOSTER VACCINES (1 of 2) 1999 PNEUMOCOCCAL VACCINES (50+ years) (2 of 2 - PCV) 07/29/2015 07/29/2014 TSH LEVEL 08/14/2015 08/14/2014, 07/10/2014 CREATININE LEVEL 07/25/2020 07/25/2019, , 08/15/2014, Additional history exists POTASSIUM LEVEL 07/25/2020 07/25/2019, 07/21, 08/15/2014, Additional history exists RSV VACCINE (1 - 1-dose 75+ series) 01/27/2024 INFLUENZA VACCINE (#1) 2025 0, 08/11/2020, 08/27/2019, Additional history exists COVID-19 VACCINE ( - 2024- season) 2025 11/26/2020, 11/05/2020 Adult Td,Tdap Booster 01/01/2029 01/01/2019 SMOKING STATUS SCREENING (Once After 26 Yrs) Completed 07/15/2019 HEPATITIS A VACCINES Aged Out No long er eligible based on patient's age to complete this topic HIB VACCINES Aged Out No longer eligi ble based on patient's age to complete this topic MENINGOCOCCAL VACCINES (ACWY) Aged Out No longer eligible based on patient's age to complete this topic MENINGOCOCCAL VACCINES (B) Aged Out N o longer eligible based on patient's age to complete this topic Medical Devices Implanted Type Area Seafood Team Member Device Identifier Shelf Expiration Date Model / Serial / Lot Occluder Pfo Amplatzer 8fr 45deg 25mm 18mm - [id number] Implanted:Qty: 1 on 07/25/2019 by Lit Patterson MD at [facility] Structural Heart Closure Device A G A MEDICAL 09/18/2023 [id number] / / [id number] Procedures Procedure Name Priority Date/Time Associated Diagnosis Comments BASIC METABOLIC PANEL Routine 07/25/2019 9:23 AM EDT HISTORICAL LAB Routine 08/14/2014 8:40 AM EDT from Last 3 Months or Most Recently Relevant to Health Maintenance Results * (ABNORMAL) Basic metabolic panel (07/25/2019 9:23 AM EDT) SODIUM 137 135 - 145 mmol/L [facility] POTASSIUM 4.4 3.4 - 5.0 mmol/L [facility] CHLORIDE 101 98 - 108 mmol/L [facility] CO2 22(L) 23 - 32 mmol/L [facility] BUN 25 8 - 25 mg/dL [facility] CREATININE 1.11 0.60 - 1.50 mg/dL [facility] GLUCOSE 164(H) 70 - 110 mg/dL [facility] CALCIUM 8.8 8.5 - 10.5 mg/dL [facility] EGFR 67 >59 mL/min/1. 73m2 [facility] Comment:If patient is black, multiply result by 1.159. Estimated glomerular filtration rate calculated using the CKD-EPI equation. ANION GAP 14 3 - 17 mmol/L [facility] Blood 07/25/2019 9:23 AM EDT 07/25/2019 9:34 AM EDT us Lit Patterson MD LAB BLOOD ORDERABLES Final Resu lt [address] [address] * (ABNORMAL) Historical Lab (08/14/2014 8:40 AM EDT) Calcium 8.9 8.5 - 10.5 mg/dl [facility] Magnesium 1.8 1.4 - 2.0 meq/L [facility] Phosphorus 2.3(Abnorm ally L) 2.6 - 4.5 mg/dl [facility] T1-TSH 3.39 0.40 - 5.00 uIU/mL [facility] 08/14/2014 8:40 AM EDT 08/14/2014 9:18 AM EDT Comment:BLOOD us Jordan Gil CNP LAB BLOOD ORDERABLES Final Result [address] [address] from Last 3 Months or Most Recently Relevant to Health Maintenance Insurance [employer] [facility] PPO [facility] [place] [place] [facility] P[facility] Member Subscriber Plan / Payer (Ef fective 2017-Present) Name:Shashank Gruber Relation to Subscriber:Spouse Name:BRITTNEY BLISS Date of :1954 (Home) Address: [address] [place] [id number] Payer ID:[id number] (NAIC) Type:PPO Address: [address] [place] [id number] [facility] [place] [address] [address] PPO [facility] C[facility] [facility] [place] [address] [facility] PPO Advance Directives For more information, please contact: [phone] (9AM - 5PM [facility], Sunday-Sunday) Documents on File Type Date Recorded Patient Cpo Expl anation Advance Directive - Non Epic LMR 08/25/2014 12:00 AM Care Teams Machine Steak Tenderizer Relationship Specialty Start Date End Date Boo Dangelo MD [address] [place] [address] Drive [address] [place] [address] PCP - General 05/19/14 Additional Source Comments The information contained in this document represents components of the legal health record. It is not the complete legal health record.[facility]
--- OUTSIDE RECORDS SUMMARY | 2025-08-13 17:48 | XMS_ITS | Patient Health Record ---
Author Organization [facility] Address [address] [place] [id number] Care Team Providers Care Diesel Powerplant Mechanic Name Role Phone KIRILL TERI Primary Care Provider Gentry Hughes Jr Unavailable [phone] Allergies Allergen (clinical drug ingredient) Drug/Non Drug [...] Problem Status W/U Status Risk Notes Problem [id number] Abnormal findings in stool (R19.5) Active confirmed Plan Of Treatment Future Test Test Name Order Date COLONOSCOPY 05/12/2024 Insurance Providers Payer Name Payer Address Payer Phone Subscriber Number Group Number Insured Name Patient Relationship to Insured Coverage Start Date Coverage End Date [employer] [address] [place] [address] [id number] BALDOMERO YAO Self - patient is the insured Medical (General) History Medical History History ICD Code Bicuspid aortic valve status post replac ement, current bioprosthetic valve Ascending aortic aneurysm repair PFO pacemaker Glaucoma and cataract repairs Hearing deficit BPH amaurosis fugax Gout Surgical History Surgery Date(Month/Year) AVR and PFO surgery thyroidectomy appendectomy pacemaker
== END 2025-08-13 13:46 | disposition home or self-care (01) ==
LOC: HO.HMCH 13:03
PROVIDERS: PCP Internal Medicine; Visit Provider Internal Medicine
DX: I10 Essential (primary) hypertension (principal)

== ENCOUNTER → 2025-08-22 23:59 | Outpatient (BNV) | payer MEDICARE, OTHER, SELFPAY ==
--- NOTE | 2025-08-26 12:15 | MHC.OFFVIS ---
Intake Visit Reasons: remote ILR check- [employer] Allergies Iodinated Contrast Media (IV Dye, Iodine Containing) Allergy (Severe, Verified 08/13/25 13:13) VASCULAR COLLAPSE and vascular spasm simvastatin (SIMVASTATIN) Allergy (Intermediate, Verified 08/13/25 13:13) MYALGIA vancomycin (VANCOMYCIN) Allergy (Intermediate, Verified 08/13/25 13:13) itching, rash and hives atorvastatin (ATORVASTATIN) Allergy (Mild, Verified 08/13/25 13:13) VISUAL HALOS clopidogrel (From Plavix) Adverse Reaction (Intermediate, Verified 08/13/25 13:13) Diarrhea [facility] Medical History (Updated 04/08/25 @ 14:17 by Ad Gallarod MD) Squamous cell carcinoma, face Hypothyroidism ASVD (arteriosclerotic vascular disease) Glaucoma AAA (abdominal aortic aneurysm) Bicuspid aortic valve Benign prostate hyperplasia Trigger finger of all digits of left hand Raynauds phenomenon Blindness, sudden AV block Hypertension Surgical History History of removal of pigmented skin lesion History of colonoscopy (~07/15/24) Hx of cataract extraction History of surgery History of basal cell carcinoma excision History of appendectomy History of permanent cardiac pacemaker placement History of thyroidectomy Status post percutaneous patent foramen ovale closure Status post ascending aortic replacement History of aortic valve replacement Social History Housing: House Alcohol intake: current Alcohol intake frequency: a few times a week Alcohol type: beer Patient Tobacco Use Status: Never used Tobacco e-Cigarette/Vaping Use: Never Used Second Hand Smoke Exposure: No service: No Current occupational status: employed and 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 No arrhythmias or pauses noted. [id number] Cardiac Interrogation, subcut cardiac rhythm monitor Procedure code (CPT) selection complete Assessment & Plan Assessment & Plan (1) Implantable loop recorder present: Code(s): Z95.818 - Presence of other cardiac implants and grafts Category: Medical Plan: See above Coding Level of Care Code Procedure Only Diagnoses Implantable loop recorder present Z95.818 CPT Codes Cardiac Device Check - Cardiac Device 16: [id number] Cardiac Interrogation, subcut cardiac rhythm monitor ([id number])
== END ==
PROVIDERS: PCP Internal Medicine; Visit Provider Internal Medicine Cardiovascular Disease
DX: Z45.09 Encounter for adjustment and management of other cardiac device (principal)
CPT/HCPCS: 93298

== ENCOUNTER 2025-09-09 11:21 | Outpatient (REF) | payer MEDICARE, OTHER, SELFPAY ==
--- OUTSIDE RECORDS SUMMARY | 2024-07-15 05:10 | XMS_ITS ---
Author Organization [facility] Address [address] [place] [id number] Care Team Providers Care School Director Name Role Phone TERI ROY Primary Care Provider Gentry Hughes Jr [phone] REASON FOR VISIT abn findings in stool Encounters Encounter Location Date Provider Diagnosis [facility] [place] Outpatient [address] [place] [phone] 07/15/2024 Gentry Avelar Jr Abnormal findings in stool R19.5 Assessments Encounter Date Diagnosis (ICD Code) Assessment Notes Treatment Notes Treatment Clinical Notes Section Notes 07/15/2024 Abnormal findings in stool (ICD-10 - R19.5) Plan Of Treatment No Information Progress Notes * BALDOMERO MORTONDOB: [birth year] (75 yo M)Acc No.[id number]:07/15/2024 COLON WITH MAC Patient: BALDOMERO LOZADA Provider: Milena Avelar MD :[id number] A ge:74 Y S ex:Male Date:07/15/2024 Address: [id number] Pcp:TERI ROY Subjective: * Chief Complaints: * [...] 0 07/15/2024 Generated for Aranza liang/Soraya/Darlene on: 03:33 PM EDT
[2025-09-09 11:50] VITALS: BP 152/69; PULSE 55; RESP 19; O2SAT 97; BMI 32.1
--- NOTE | 2025-09-09 12:08 | PM.OP ---
Brief Operative Note Date of Service: 09/09/25 Pre-op diagnosis: Implantable loop recorder in place Post-op diagnosis: same Procedure: Removal of implantable loop recorder Implants: After obtaining informed consent patient was brought to the minor surgery suite. Patient was then laid on the operating table in supine position. Patient is precordial area was then prepped and draped in a sterile fashion. Patient was then given 2% lidocaine with epinephrine intradermally and subcutaneously around the head of the device. A small incision was then made at the head of the device. After some blunt dissection, the implantable loop recorder was removed with help of a Caitlin forcep. The wound was then closed with Steri-Strips. Pressure dressing was applied in his sterile fashion. Surgeon: Ad Gallardo MD Anesthesia: local Was an Nurse Infection Control used for this Procedure?: No Estimated blood loss (mL): 3 Pathology: none sent Condition: stable Disposition: same day
--- OUTSIDE RECORDS SUMMARY | 2025-09-09 15:33 | XMS_ITS | Clinical Summary ---
Author Organization [facility] Address [address] [place] [address] Care Team Providers Care Digital Computer Operator Name Role Phone Unavailable Primary Care Provider [...]
--- OUTSIDE RECORDS SUMMARY | 2025-09-09 15:33 | XMS_ITS | Clinical Summary ---
Author Organization [facility] Address [address] [address] Phone Care Team Providers Care Assistant Auditor Name Role Phone Boo Dangelo MD Primary [...] Patterson re now vs defer to local belt machine operator) Allergy to iodinated contrast 07/24/2019 Assessment & [...] to follow up with Dr. 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 Arteriosclerotic heart disease 08/03/2014 Overview (01/09/2015): Coronary [...] 08/10(Deferred: Patient Decision - , Ordered By: [id number]) Pneumococcal polysaccharide PPSV23 07/29/2014 Family History Medical [...] this topic Medical Devices Implanted Type Area Out And Out Cigar Maker Hand Device Identifier Shelf Expiration Date Model / Serial / Lot Occluder Pfo Amplatzer 8fr 45deg 25mm 18mm - [id number] Implanted:Qty: 1 on 07/25/2019 by Lit Patterson MD at [facility] Structural Heart Closure Device A G A MEDICAL 09/18/2023 [id number] / / [id number] Procedures Procedure Name Priority Date/Time Associated Diagnosis Comments BASIC METABOLIC PANEL Routine 07/25/2019 9:23 AM EDT HISTORICAL LAB Routine 08/14/2014 8:40 AM EDT from Last 3 Months or Most Recently Relevant to Health Maintenance Results * (ABNORMAL) Basic metabolic panel (07/25/2019 9:23 AM EDT) SODIUM 137 135 - 145 mmol/L [facility] POTASSIUM 4.4 3.4 - 5.0 mmol/L [facility] CHLORIDE 101 98 - 108 mmol/L [facility] CO2 22(L) 23 - 32 mmol/L [facility] BUN 25 8 - 25 mg/dL [facility] CREATININE 1.11 0.60 - 1.50 mg/dL [facility] GLUCOSE 164(H) 70 - 110 mg/dL [facility] CALCIUM 8.8 8.5 - 10.5 mg/dL [facility] EGFR 67 >59 mL/min/1. 73m2 [facility] Comment:If patient is black, multiply result by 1.159. Estimated glomerular filtration rate calculated using the CKD-EPI equation. ANION GAP 14 3 - 17 mmol/L [facility] Blood 07/25/2019 9:23 AM EDT 07/25/2019 9:34 AM EDT us Lit Patterson MD LAB BLOOD ORDERABLES Final Resu lt [address] [address] * (ABNORMAL) Historical Lab (08/14/2014 8:40 AM EDT) Calcium 8.9 8.5 - 10.5 mg/dl [facility] Magnesium 1.8 1.4 - 2.0 meq/L [facility] Phosphorus 2.3(Abnorm ally L) 2.6 - 4.5 mg/dl [facility] T1-TSH 3.39 0.40 - 5.00 uIU/mL [facility] 08/14/2014 8:40 AM EDT 08/14/2014 9:18 AM EDT Comment:BLOOD us Jordan Gil CNP LAB BLOOD ORDERABLES Final Result [address] [address] from Last 3 Months or Most Recently Relevant to Health Maintenance Insurance [employer] CIGNA PPO [facility] CIGNA PPO [place] [facility] [place] [facility] [place] [address] [facility] [place] [address] [facility] CIG PPO [facility] [place] [address] [facility] [place] [address] [facility] PPO Advance Directives For more information, please contact: [phone] (9AM - 5PM [facility], Sunday-Sunday) Documents on File Type Date Recorded Patient Air And Hydronic Balancing Technician Expl anation Advance Directive - Non Epic LMR 08/25/2014 12:00 AM Care Teams Assistant Auditor Relationship Specialty Start Date End Date Boo Dangelo MD [address] [place] [address] Drive [address] [place] [address] PCP - General 05/19/14 Additional Source Comments The information contained in this document represents components of the legal health record. It is not the complete legal health record.[facility]
--- OUTSIDE RECORDS SUMMARY | 2025-09-09 15:33 | XMS_ITS | Encounter Summary ---
Author Organization [facility] Address [address] [facility] [address] [place] [address] Phone Care Team Providers Care System Development Manager Name Role Phone Boo Dangelo MD Primary Care Provider Encounter Details Date Type Department Care Team (Late st Contact Info) Description 07/25/2019 Procedure Pass [facility] Cardiac Dope Worker [address] [facility], [address] [place] [address] Social History Tobacco Use Types [...] on filedocumented in this encounter Care Teams System Development Manager Relationship Specialty Start Date End Date Boo Dangelo MD [address] [place] [address] PCP - General 05/19/14 documented as of this encounter Additional Source Comments The information contained in this document represents components of the legal health record. It is not the complete legal health record.[facility]
--- OUTSIDE RECORDS SUMMARY | 2025-09-09 15:34 | XMS_ITS | Encounter Summary ---
Author Organization [facility] Address [address] [facility] [address] [place] [address] Phone Care Team Providers Care Digital Retoucher Name Role Phone Boo Dangelo MD Primary Care Provider Encounter Details Date Type Department Care Team (Late st Contact Info) Description 07/18/2019 Procedure Pass [facility] Cardiac Parachute Crown Sewer [address] [facility], [address], [address] [place] [address] Social History Tobacco Use Types [...] on filedocumented in this encounter Care Teams Digital Retoucher Relationship Specialty Start Date End Date Boo Dangelo MD [address] [place] [address] PCP - General 05/19/14 documented as of this encounter Additional Source Comments The information contained in this document represents components of the legal health record. It is not the complete legal health record.[facility]
== END 2025-09-09 11:22 | disposition home or self-care (01) ==
LOC: HO.MS 11:21
PROVIDERS: PCP Internal Medicine; Visit Provider Internal Medicine Cardiovascular Disease
PROC: (CPT 33286; principal; 2025-09-09 12:00)
DX: Z45.09 Encounter for adjustment and management of other cardiac device (principal)
CPT/HCPCS: 33286; J2004

== ENCOUNTER → 2025-09-09 11:21 | Outpatient (BNV) | payer MEDICARE, OTHER, SELFPAY | PROVIDERS: PCP Internal Medicine; Visit Provider Internal Medicine Cardiovascular Disease | DX: Z45.09 Encounter for adjustment and management of other cardiac device (principal) | CPT/HCPCS: 33286 ==

== ENCOUNTER 2025-09-24 07:48 | Outpatient (REF) | payer MEDICARE, OTHER, SELFPAY ==
--- OUTSIDE RECORDS SUMMARY | 2024-07-15 04:10 | XMS_ITS ---
Author Organization [facility] Address [address] [place] [id number] Care Team Providers Care Eviction Specialist Name Role Phone TERI ROY Primary Care Provider Gentry Hughes Jr [phone] REASON FOR VISIT abn findings in stool Encounters Encounter Location Date Provider Diagnosis [facility] [place] [address] [place] [id number] 07/15/2024 Gentry Avelar Jr Abnormal findings in stool R19.5 Assessments Encounter Date Diagnosis (ICD Code) Assessment Notes Treatment Notes Treatment Clinical Notes Section Notes 07/15/2024 Abnormal findings in stool (ICD-10 - R19.5) Plan Of Treatment No Information Progress Notes * BALDOMERO MORTONDOB: [birth year] (75 yo M)Acc No.[id number]:07/15/2024 COLON WITH MAC Patient: BALDOMERO LOZADA Provider: Milena Avelar MD :1950 A ge:74 Y S ex:Male Date:07/15/2024 [id number] Pcp:TERI ROY Subjective: * Chief Complaints: * 1 . Abn findings in stool. * Medical History: Objective: * Vitals: Assessment: * Assessment: 1. A bnormal findings in stool - R19.5 (Primary) Plan: * Treatment: * Procedure Codes: 4 5378 DIAGNOSTIC COLONOSCOPY * * The named appointment provid er may or may not be the originator of this progress note, and it is not deemed complete until electronically signed by the appointment provider. Sign off status: Pending * Provider: Milena Avelar MD Date: 0 07/15/2024 Generated for Aranza liang/Soraya/Darlene on: 11/24/2024 07:51 AM EST
--- OUTSIDE RECORDS SUMMARY | 2025-09-24 07:51 | XMS_ITS | Encounter Summary ---
Author Organization [facility] Address [address] [place] [address] Phone Care Team Providers Care Project Manager Senior Name Role Phone Boo Dangelo MD Primary Care Provider Encounter Details Date Type Department Care Team (Late st Contact Info) Description 07/25/2019 Procedure Pass [facility] Cardiac Smoking Pipe Repairer [address] [facility], [address] 9, [address] [place] [address] Social History Tobacco Use Types [...] on filedocumented in this encounter Care Teams Project Manager Senior Relationship Specialty Start Date End Date Boo Dangelo MD [address] [place] [address] PCP - General 05/19/14 documented as of this encounter Additional Source Comments The information contained in this document represents components of the legal health record. It is not the complete legal health record.[facility]
--- OUTSIDE RECORDS SUMMARY | 2025-09-24 07:51 | XMS_ITS | Clinical Summary ---
Author Organization [facility] Address [address] [place] [address] Care Team Providers Care Artificial Leather Calender Operator Name Role Phone Unavailable Primary Care [...]
--- OUTSIDE RECORDS SUMMARY | 2025-09-24 07:51 | XMS_ITS | Patient Health Record ---
Author Organization [facility] Address [address] [place] [address] Care Team Providers Care Is Analyst Name Role Phone KIRILL TERI Primary Care [...] 10 MG 1 tablet Orally Once a day; Duration: 30 day(s) Active Aspir-Low 81 MG 1 tablet Orally Once a day; Duration: 30 day(s) Active Latanoprost 0.005 % INSTILL 1 DROP INTO BOTH EYES AT BEDTIME PLAN LIMITATIONS Ophthalmic; Duration: 85 Active Valsartan-hydroCHLOROthiazi de 160-12.5 MG Oral; Duration: 90 Active Brilinta 60 MG Oral; Duration: 90 Active Levothyroxine Sodium 137 MCG Oral; Duration: 90 Active Allopurinol 300 MG TAKE 1 TABLET BY NANDA TH EVERY DAY Oral; Duration: 90 Active Toprol XL 100 MG 1 tablet Orally Once a day; Duration: 30 day(s) Active Immunizations Vaccine Route Administration [...] Problem Status W/U Status Risk Notes Problem Abnormal feces (010671361) Abnormal findings in stool (R19.5) Active confirmed Plan Of Treatment Future Test Test Name Order Date COLONOSCOPY 05/12/2024 Insurance Providers Payer Name Payer Address Payer Phone Subscriber Number Group Number Insured Name Patient Relationship to Insured Coverage Start Date Coverage End Date [facility] [address] [place] [address] [id number] BALDOMERO YAO Self - patient is the insured Medical (General) History Medical History History ICD Code Bicuspid aortic valve status post replac ement, current bioprosthetic valve Ascending aortic aneurysm repair PFO pacemaker Glaucoma and cataract repairs Hearing deficit BPH amaurosis fugax Gout Surgical History Surgery Date(Month/Year) AVR and PFO surgery thyroidectomy appendectomy pacemaker
--- OUTSIDE RECORDS SUMMARY | 2025-09-24 07:51 | XMS_ITS | Clinical Summary ---
Author Organization [facility] Address [address] [address] Phone Care Team Providers Care Venture Capital Analyst Name Role Phone Boo Dangelo MD Primary [...] Patterson re now vs defer to local ranch hand supervisor) Allergy to iodinated contrast 07/24/2019 Assessment & [...] to follow up with Dr. Gallardo at [facility] moving forward w/ a TTE in 1 [...] bubble study in post procedure area of dairy lab technician anticipating potential same day discharge -TTE and [...] wishes to continue following with his primary ranch hand supervisor. Arteriosclerotic heart disease 08/03/2014 Overview (01/09/2015): Coronary [...] 08/10(Deferred: Patient Decision - , Ordered By: [id number]) Pneumococcal polysaccharide PPSV23 07/29/2014 Family History Medical [...] this topic Medical Devices Implanted Type Area Pattern Maker Device Identifier Shelf Expiration Date Model / Serial / Lot Occluder Pfo Amplatzer 8fr 45deg 25mm 18mm - [id number] Implanted:Qty: 1 on 07/25/2019 by Lit Patterson MD at Structural Heart Closure Device [facility] 09/18/2023 [id number] / / [id number] Procedures Procedure Name Priority Date/Time Associated Diagnosis Comments BASIC METABOLIC PANEL (BMP) Routine 07/25/2019 9:23 AM EDT HISTORICAL LAB Routine 08/14/2014 8:40 AM EDT from Last 3 Months or Most Recently Relevant to Health Maintenance Results * (ABNORMAL) Basic metabolic panel (07/25/2019 9:23 AM EDT) SODIUM 137 135 - 145 mmol/L [facility] POTASSIUM 4.4 3.4 - 5.0 mmol/L [facility] CHLORIDE 101 98 - 108 mmol/L [facility] CO2 22(L) 23 - 32 mmol/L [facility] BUN 25 8 - 25 mg/dL [facility] CREATININE 1.11 0.60 - 1.50 mg/dL [facility] GLUCOSE 164(H) 70 - 110 mg/dL [facility] CALCIUM 8.8 8.5 - 10.5 mg/dL [facility] EGFR 67 >59 mL/min/1. 73m2 [facility] Comment:If patient is black, multiply result by 1.159. Estimated glomerular filtration rate calculated using the CKD-EPI equation. ANION GAP 14 3 - 17 mmol/L [facility] Blood 07/25/2019 9:23 AM EDT 07/25/2019 9:34 AM EDT us Lit Patterson MD LAB BLOOD BKR ORDERABLES Final Result [address] [address] * (ABNORMAL) Historical Lab (08/14/2014 8:40 AM EDT) Calcium 8.9 8.5 - 10.5 mg/dl [facility] Magnesium 1.8 1.4 - 2.0 meq/L [facility] Phosphorus 2.3(Abnorm ally L) 2.6 - 4.5 mg/dl [facility] T1-TSH 3.39 0.40 - 5.00 uIU/mL [facility] 08/14/2014 8:40 AM EDT 08/14/2014 9:18 AM EDT Comment:BLOOD us Jordan Gil CNP LAB BLOOD ORDERABLES Final Result [address] [address] from Last 3 Months or Most Recently Relevant to Health Maintenance Insurance [facility] CIG PPO [facility] [place] [facility] [place] [facility] CIGNA PPO Member Subscriber Plan / Payer (Ef fective 2017-Present) Name:Shashank Gruber Relation to Subscriber:Spouse Name:BRITTNEY BLISS Date of :1954 (Home) Address: [address] [place] [address] Payer ID:[id number] (NAIC) Type:PPO Address: [address] [place] [id number] [facility] [place] [address] [facility] Member Subscriber Plan / Payer (Ef fective 2018-Present) Name:Shashank Gruber Relation to Subscriber:Self Name:Shashank Gruber Payer ID:[id number] (NAIC) Type:PPO Address: [address] PPO [facility] CIGNA PPO [facility] PPO [facility] [employer] PPO Advance Directives For more information, please contact: [phone] (9AM - 5PM [facility], Sunday-Sunday) Documents on File Type Date Recorded Patient Industrial Custodian Expl anation Advance Directive - Non Epic LMR 08/25/2014 12:00 AM Care Teams Venture Capital Analyst Relationship Specialty Start Date End Date Boo Dangelo MD [address] [place] [address] Drive [address] [place] [address] PCP - General 05/19/14 Additional Source Comments The information contained in this document represents components of the legal health record. It is not the complete legal health record.[facility]
--- OUTSIDE RECORDS SUMMARY | 2025-09-24 07:52 | XMS_ITS | Encounter Summary ---
Author Organization [facility] Address [address] [place] [address] Phone Care Team Providers Care Intelligence Agent Name Role Phone Boo Dangelo MD Primary Care Provider Encounter Details Date Type Department Care Team (Late st Contact Info) Description 07/18/2019 Procedure Pass [facility] Cardiac Final Block Press Operator [address] [facility], [address], [address] [place] [address] Social History Tobacco Use Types [...] on filedocumented in this encounter Care Teams Intelligence Agent Relationship Specialty Start Date End Date Boo Dangelo MD [address] [place] [address] PCP - General 05/19/14 documented as of this encounter Additional Source Comments The information contained in this document represents components of the legal health record. It is not the complete legal health record.[facility]
[2025-09-24 09:00] LABS: Hematocrit 41.0 % (42.0-52.0); Hemoglobin 13.4 g/dl (14.0-18.0); Mean Corpuscular HGB Conc 32.7 g/dl (31.0-36.0); Mean Corpuscular Hemoglobin 33.7 pg (27.0-33.0); Mean Corpuscular Volume 103.0 fL (80.0-98.0); NRBC Abs Auto 0.000 X10*3/uL (0.0-0.012); NRBC Pct Auto 0.0 /100WBC (0.0-0.2); Platelet Count 181 X10*3/uL (160-400); Red Blood Count 3.98 X10*6/uL (4.60-5.80); White Blood Count 7.3 X10*3/uL (4.8-10.8)
[2025-09-24 09:42] LABS: Alanine Aminotransferase 46 U/L (0-40); Albumin Level 4.6 g/dL (3.5-5.0); Alkaline Phosphatase 98 U/L (39-117); Anion Gap 13 (12-20); Aspartate Amino Transferase 40 U/L (5-37); Blood Urea Nitrogen 25 mg/dL (9-16); Calcium 9.5 mg/dL (8.4-10.2); Carbon Dioxide 24 mmol/L (22-29); Chloride 109 mmol/L (96-108); Cholesterol 146 mg/dL (<200); Estimated Glomerular Filt Rate > 60; HDL Cholesterol 58 mg/dL (>40); Potassium 4.6 mmol/L (3.3-5.1); Sodium 141 mmol/L (135-145); Total Protein 6.9 g/dL (6.5-8.0); Triglycerides 98 mg/dL (<150)
[2025-09-24 09:59] LABS: Thyroid Stimulating Hormone 0.95 uIU/mL (0.32-4.0)
[2025-09-24 10:17] LABS: Appearance Urine Clear; Glucose Urine UA Negative (Negative); PH 6.0 (5.0-9.0); Specific Gravity - Urine 1.020 (1.005-1.025)
== END 2025-09-24 07:49 | disposition home or self-care (01) ==
LOC: HO.LAB 07:48
PROVIDERS: PCP Internal Medicine; Visit Provider Internal Medicine
DX: I10 Essential (primary) hypertension (principal)
CPT/HCPCS: 36415; 80048; 80061; 80076; 81003; 84443; 85027

== ENCOUNTER 2025-10-05 12:56 | Outpatient (AMB) | payer MEDICARE, OTHER, SELFPAY ==
[2025-10-05 12:57] VITALS: BP 110/70; PULSE 52; BMI 31.4
--- NOTE | 2025-10-05 12:57 | A.OFFVIS_ITS ---
Vital Signs 10/05/25 12:57 Height 5 ft 7 in Weight 200 lb 9.93 oz BMI 31.4 BP 110/70 Blood Pressure Location Lt brachial Position Sitting Pulse 52 Intake Visit Reasons: 6 mth f/up-device check st shan Intake Note: 6 month follow-up with [facility] Drop Wire Operator Required: No Allergies Iodinated Contrast Media (IV Dye, Iodine Containing) Allergy (Severe, Verified 08/13/25 13:13) VASCULAR COLLAPSE and vascular spasm simvastatin (SIMVASTATIN) Allergy (Intermediate, Verified 08/13/25 13:13) MYALGIA vancomycin (VANCOMYCIN) Allergy (Intermediate, Verified 08/13/25 13:13) itching, rash and hives atorvastatin (ATORVASTATIN) Allergy (Mild, Verified 08/13/25 13:13) VISUAL HALOS clopidogrel (From Plavix) Adverse Reaction (Intermediate, Verified 08/13/25 13:13) Diarrhea Medication List - Last Reconciled 10/05/25 by Ad Gallardo MD allopurinol 300 mg PO DAILY aspirin 81 mg PO DAILY celecoxib 200 mg PO DAILY cholecalciferol (vitamin D3) 25 mcg PO DAILY cyclobenzaprine 10 mg PO BEDTIME PRN ezetimibe 10 mg PO DAILY latanoprost 0.005% 1 drp ophthalmic (eye) BEDTIME levothyroxine 100 mcg PO DAILY mecobalamin (vitamin B12) 1,000 mcg PO DAILY metoprolol succinate ER 100 mg PO DIRECTED rosuvastatin 10 mg (1/2 x 20 mg) PO DAILY ticagrelor (Brilinta) 60 mg PO BID valsartan-hydrochlorothiazide 160-12.5 mg 1 tab PO DAILY HPI Comments Details: 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 He is status post implantable loop recorder removal. He has done well from cardiac perspective. Denies any cardiac symptoms. No prolonged palpitation irregular heartbeat. No lightheadedness, syncope. No exertional chest pain. Comes for pacer check. [facility] Medical History Squamous cell carcinoma, face Hypothyroidism ASVD (arteriosclerotic vascular disease) Glaucoma AAA (abdominal aortic aneurysm) Bicuspid aortic valve Benign prostate hyperplasia Trigger finger of all digits of left hand Raynauds phenomenon Blindness, sudden AV block Hypertension Surgical History History of removal of pigmented skin lesion History of colonoscopy (~07/15/24) Hx of cataract extraction History of surgery History of basal cell carcinoma excision History of appendectomy History of permanent cardiac pacemaker placement History of thyroidectomy Status post percutaneous patent foramen ovale closure Status post ascending aortic replacement History of aortic valve replacement Social History Housing: House Alcohol intake: current Alcohol intake frequency: a few times a week Alcohol type: beer Patient Tobacco Use Status: Never used Tobacco e-Cigarette/Vaping Use: Never Used Second Hand Smoke Exposure: No service: No Current occupational status: employed and 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 needs: No Hearing needs: Yes (hearind aides) Vision needs: Yes (glasses) Review of Systems Const Denies chills, Denies fatigue, Denies fever(s), Denies frequent falls, Denies weakness, Denies weight gain and Denies weight loss ENT Denies dizziness Card Denies chest pain, Denies leg edema, Denies lightheadedness, Denies palpitations, Denies dyspnea, Denies dyspnea on exertion, Denies orthopnea and Denies other (loss of consciousness) Resp Denies cough, Denies dyspnea and Denies dyspnea on exertion GI Denies hematochezia and Denies change in stool character Musc Denies abnormal gait, Denies muscle weakness, Denies numbness, Denies radiating pain into limb and Denies tingling Neuro Denies abnormal gait, Denies dizziness, Denies frequent falls, Denies numbness, Denies tingling and Denies weakness Endo Denies fatigue and Denies palpitations Physical Exam Vital Signs: Last Vital Signs Pulse 52 10/05/25 12:57 BP 110/70 10/05/25 12:57 BMI result Body Mass Index 31.4 Const General: cooperative, comfortable, no acute distress, alert and awake Nutritional Appearance: obese Orientation/consciousness: patient oriented x3 Limitations: no limitations Neck Neck: Yes trachea midline, Yes supple and Yes no JVD Carotids: normal carotid upstroke and no bruits Resp Effort & Inspection: normal respiratory effort Auscultation: bronchovesicular breath sounds on the right (Posterior lung field) Cardio Jugular venous distension: no JVD Palpation: normal PMI Rate: regular rate Rhythm: regular rhythm Heart sounds: S1 normal heart sound present, S2 normal heart sound present, no click, no gallops and Murmur heart sound present systolic early, decrescendo and crescendo GI Auscultation: normal bowel sounds Skin General skin exam: no rashes or lesions noted Neuro General: patient oriented x3 and no focal motor deficits Extrem General: Yes no clubbing, cyanosis or edema Psych Appearance: grossly normal Office Procedures Cardiac Device Check Cardiac Device Check Details: Single-chamber Saint Shan pacemaker in place. Programmed in VVI at 40 beats per minute. Minimal ventricular pacing. PACs/PVCs noted. Nuclear sensing is adequate. Ventricular pacing thresholds adequate. Pacing lead impedance is stable. Battery life is excellent [id number] Cardiac Device Check, leadless/single lead pacemaker Procedure code (CPT) selection complete Assessment & Plan Assessment & Plan (1) History of aortic valve replacement: Comment: Aortic stenosis secondary to bicuspid aortic valve undergoing repair at age 14 at [facility]. Followed by in 1990 undergoing Saint Shan 23 mm aortic valve replacement at [facility] for stenosis. Surgery was complicated at that time with RV laceration, which had to be repaired. 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 Clinically appears to have no significant progressive abnormalities. Currently on dual antiplatelet therapy given his neurologic events. Doing well. Continue SBE prophylaxis as per ACC/aha guidelines. Continue aggressive vascular risk factor modification. Follow-up echocardiogram 6 months time. (2) Cardiac pacemaker: Code(s): Z95.0 - Presence of cardiac pacemaker Category: Medical Plan: Single-chamber cardiac pacemaker in-situ for postoperative AV block. Very little dependence on pacing therapy at this point time. Continue to monitor by pacer telemetry. (3) Nonsustained ventricular tachycardia: Comment: Patient has a loop monitor Code(s): I47.29 - Other ventricular tachycardia Category: Medical Plan: Nonsustained ventricular tachycardia in the setting of thyrotoxicosis related to pharmacologic therapy. Since then it has improved and he has not had any significant abnormalities. (4) Status post percutaneous patent foramen ovale closure: Code(s): Z87.74 - Personal history of (corrected) congenital malformations of heart and circulatory system Category: Surgical Plan: Status post PFO closure for stroke. Working well. Follow-up echocardiogram in 6 months time. Continue dual antiplatelet therapy. (5) ASVD (arteriosclerotic vascular disease): Code(s): I70.90 - Unspecified atherosclerosis Category: Medical Plan: Diffuse atherosclerotic vascular disease with recurrent TIA. There was no evidence of atrial fibrillation. Continue dual antiplatelet therapy. Continue aggressive blood pressure control which is currently well optimized. Continue statin therapy with target goal LDL less than 70 mg/dL. Follow up in the clinic in 6 months time, sooner PRN. Thank you for allowing me to partake in his care Orders: Orders CA echo transthoracic complete 6 Months Z95.2 - Presence of prosthetic heart valve Coding Level of Care Code Est Pt Level 4 (81309) Complex EM visit Add On G2211 Diagnoses History of aortic valve replacement Z95.2 Cardiac pacemaker Z95.0 Nonsustained ventricular tachycardia I47.29 Status post percutaneous patent foramen ovale closure Z87.74 ASVD (arteriosclerotic vascular disease) I70.90 CPT Codes Cardiac Device Check - Cardiac Device 1: [id number] Cardiac Device Check, leadless/single lead pacemaker ([id number])
== END 2025-10-05 13:42 | disposition home or self-care (01) ==
LOC: HO.HCS 12:56
PROVIDERS: PCP Internal Medicine; Visit Provider Internal Medicine Cardiovascular Disease
DX: I47.29 Other ventricular tachycardia (principal); Z95.2 Presence of prosthetic heart valve; Z95.0 Presence of cardiac pacemaker; I70.90 Unspecified atherosclerosis; Z87.74 Personal history of (corrected) congenital malformations of heart and circulatory system
CPT/HCPCS: 93279; 99214; G2211

== ENCOUNTER → 2025-10-05 12:56 | Outpatient (BNVA) | payer MEDICARE, OTHER, SELFPAY | PROVIDERS: PCP Internal Medicine; Visit Provider Internal Medicine Cardiovascular Disease | DX: I47.29 Other ventricular tachycardia (principal); I70.90 Unspecified atherosclerosis; Z87.74 Personal history of (corrected) congenital malformations of heart and circulatory system; Z95.2 Presence of prosthetic heart valve; Z95.0 Presence of cardiac pacemaker | CPT/HCPCS: 93279; 99212 ==

== ENCOUNTER 2025-11-04 13:15 | Outpatient (AMB) | payer MEDICARE, OTHER, SELFPAY ==
--- OUTSIDE RECORDS SUMMARY | 2024-07-15 04:10 | XMS_ITS ---
Author Organization [facility] Address [address] [place] [phone] Care Team Providers Care Dovetailer Name Role Phone TERI ROY Primary Care Provider Gentry Hughes Jr REASON FOR VISIT abn findings in stool Encounters Encounter Location Date Provider Diagnosis [facility] [place] [address] [place] [phone] 07/15/2024 Gentry Avelar Jr Abnormal findings in stool R19.5 Assessments Encounter Date Diagnosis (ICD Code) Assessment Notes Treatment Notes Treatment Clinical Notes Section Notes 07/15/2024 Abnormal findings in stool (ICD-10 - R19.5) Plan Of Treatment No Information Progress Notes * BALDOMERO MORTONDOB: [birth year] (75 yo M)Acc No.[id number]:07/15/2024 COLON WITH MAC Patient: BALDOMERO LOZADA Provider: Milena Avelar MD :1950 A ge:74 Y S ex:Male Date:07/15/2024 Address[id number] Pcp:TERI ROY Subjective: * Chief Complaints: * A bn findings in stool Assessment: * Assessment: 1. A bnormal findings in stool - R19.5 (Primary) Plan: * Procedure Codes: 4 5378 DIAGNOSTIC COLONOSCOPY Billing Information: * Procedure Codes: 80943 DIAGNOSTIC COLONOSCOPY. * The named appointment provid er may or may not be the originator of this progress note, and it is not deemed complete until electronically signed by the appointment provider. Sign off status: Pending * Provider: Milena Avelar MD Date: 0 07/15/2024 Generated for Aranza liang/Soraya/Darlene on: 1 01/05/2025 05:26 PM EST
--- NOTE | 2025-11-04 13:27 | MHC.PC.OV ---
Vital Signs 11/04/25 13:28 Height 5 ft 7 in Weight 206 lb 4 oz BMI 32.3 BP 116/68 Blood Pressure Location Lt brachial Position Sitting Respiration 18 Pulse 52 Pulse Source Pulse Oximeter Temp 97.3 F Temp Source Temporal Artery Scan Pulse Oximetry (%) 97 Oxygen Delivery Method Room Air Intake Visit Reasons: 3mth f/u [place] Room Worker Required: No Accompanied by: Self / Same As Patient Allergies Iodinated Contrast Media (IV Dye, Iodine Containing) Allergy (Severe, Verified 11/04/25 14:03) VASCULAR COLLAPSE and vascular spasm simvastatin (SIMVASTATIN) Allergy (Intermediate, Verified 11/04/25 14:03) MYALGIA vancomycin (VANCOMYCIN) Allergy (Intermediate, Verified 11/04/25 14:03) itching, rash and hives atorvastatin (ATORVASTATIN) Allergy (Mild, Verified 11/04/25 14:03) VISUAL HALOS clopidogrel (From Plavix) Adverse Reaction (Intermediate, Verified 11/04/25 14:03) Diarrhea Medication List - Last Reconciled 11/04/25 by Anthony Hewitt MD allopurinol 300 mg PO DAILY aspirin 81 mg PO DAILY celecoxib 200 mg PO DAILY PRN cholecalciferol (vitamin D3) 25 mcg PO DAILY ezetimibe 10 mg PO DAILY latanoprost 0.005% 1 drp ophthalmic (eye) BEDTIME levothyroxine 100 mcg PO DAILY mecobalamin (vitamin B12) 1,000 mcg PO DAILY metoprolol succinate ER 100 mg PO DIRECTED rosuvastatin 10 mg (1/2 x 20 mg) PO DAILY ticagrelor (Brilinta) 60 mg PO BID valsartan-hydrochlorothiazide 160-12.5 mg 1 tab PO DAILY Tobacco use date assessed: 08/13/25 Fall risk assessment: No Falls in past year Last assessed Fall Risk: 11/04/25 Dental Screening Dental Screen Date: 04/02/25 HPI HPI Comments History of Present Illness Details History of Present Illness - The patient is a 75 year old male presenting with concerns of generalized weakness, muscle loss, and arthritis. - The patient reports experiencing significant muscle wasting, feeling 'small' and weak, and having skinny arms, which he did not have before. - He notes a lack of physical activity but reports that when he does try, he experiences pain in both shoulders radiating down his arms, which he attributes to arthritis in his neck. - The weakness was highlighted when he hurt himself using a new snowblower, a task he feels he would have been able to handle previously. - He has a history of arthritis and bone pain, for which he takes Celebrex approximately once every two weeks when symptoms are severe, and this provides relief. - He also has a longstanding history of sexual dysfunction. - Due to the muscle wasting, fatigue requiring daily naps, and sexual dysfunction, he had considered the possibility of low testosterone but was hesitant to pursue treatment due to his cardiac history. - His cardiac history is significant for extensive coronary calcification noted by a ribber in [place], who also mentioned a risk for an aneurysm. - He has a history of a right bundle branch block and a pacemaker, and a loop recorder was recently removed by Dr. Gallardo. - The loop recorder did not show any atrial fibrillation over two years but did capture two episodes of V-tach, which occurred during instances of vomiting with diarrhea and hyperthyroidism. - He has a history of glaucoma, which is stable, and he sees an carbon brusher assembler twice a year. - His last colonoscopy was clear. - Blood work from September revealed macrocytosis and slightly elevated liver enzymes. Social History - Exercise: The patient reports low levels of physical activity. - He attempted to use a treadmill but experienced shoulder and right hip pain. - Functional Status: He is able to drive during the day and at night. - He reports recent difficulty with physical tasks, such as using a snowblower, which he attributes to increased weakness. - Nutrition: Appetite is reported as good. - Weight: His current weight is 206 lbs and he believes he may have gained weight. Results - Labs: Blood work from September showed macrocytosis and slightly elevated liver enzymes. - Procedures: A previously placed loop recorder was removed; it had shown no atrial fibrillation over two years but did record two episodes of ventricular tachycardia. - Past colonoscopy was noted to be clear. [facility] Medical History Squamous cell carcinoma, face Hypothyroidism ASVD (arteriosclerotic vascular disease) Glaucoma AAA (abdominal aortic aneurysm) Bicuspid aortic valve Benign prostate hyperplasia Trigger finger of all digits of left hand Raynauds phenomenon Blindness, sudden AV block Hypertension Surgical History History of removal of pigmented skin lesion History of colonoscopy (~07/15/24) Hx of cataract extraction History of surgery History of basal cell carcinoma excision History of appendectomy History of permanent cardiac pacemaker placement History of thyroidectomy Status post percutaneous patent foramen ovale closure Status post ascending aortic replacement History of aortic valve replacement Social History Housing: House Alcohol intake: current Alcohol intake frequency: a few times a week Alcohol type: beer Patient Tobacco Use Status: Never used Tobacco e-Cigarette/Vaping Use: Never Used Second Hand Smoke Exposure: No service: No 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 occupational status: employed and 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 needs: No Hearing needs: Yes (hearind aides) Vision needs: Yes (glasses) Questionnaire Thrive Questionnaire Date Thrive assessed: 03/26/25 I am a: Patient What is your living situation today?: I have a steady place to live Within the past 12 months, did the food you bought not last and you didn't have the money to get more?: Never true Within the past 12 months, did you worry whether your food would run out before you got money to buy more?: Never true Do you have trouble paying for medicines?: No Do you have trouble getting transportation to medical appointments?: No Do you have trouble paying your heating and electricity bill?: No Do you have trouble taking care of your child, family member or friend?: No Do you have trouble with day-to-day activities such as bathing, preparing meals, shopping, managing finances, etc.?: No Are you currently unemployed and looking for a job?: No Are you interested in more education?: No Please select the resources that you would like help with: None Currently or been in a relationship where the following occur: No concerns reported THRIVE Score: 0 WARREN-7 AMB Questionnaire WARREN-7 Date WARREN - 7 assessed: 04/02/25 Source: Developed by Drs. Gurjit Ledezam, Sara Christianson, Enrique Solano and colleagues, with an educational diego from [employer] Review of Systems Narrative Review of Systems - General: Reports generalized weakness, significant muscle loss, and fatigue requiring daily naps. - Reports good appetite and sleeps well. - Eyes: Reports stable vision with a stable vitreous fold and well-controlled glaucoma. - He experiences some fogginess which resolves and has difficulty with bright lights when driving. - Cardiovascular: Denies chest pain. - Reports easy bruising, which he attributes to taking aspirin and Brilinta. - Musculoskeletal: Reports arthritis and bone pain. - Reports pain in both shoulders radiating down his arms, believed to be from neck arthritis. - He also had right hip pain when trying to use a treadmill. - Genitourinary: Reports chronic sexual dysfunction. - Reports normal urination. - Gastrointestinal: Reports regular bowel movements. - Integumentary: Reports hair loss, which he considers to be familial. - Neurological: Endorses that his cognitive function is intact. Physical exam (Primary Care) Vital Signs: Last Vital Signs Temp 97.3 F 11/04/25 13:28 Pulse 52 11/04/25 13:28 Resp 18 11/04/25 13:28 BP 116/68 11/04/25 13:28 Pulse Ox 97 11/04/25 13:28 Oxygen Delivery Method Room Air 11/04/25 13:28 BMI result Body Mass Index 32.3 Tobacco/Smoking Status: Tobacco use Status Tobacco use date assessed 08/13/25 11/04/25 13:37 Patient Tobacco Use Status Never used Tobacco 11/04/25 13:37 e-Cigarette/Vaping Use Never Used 11/04/25 13:37 Thrive Assessment: Date of Thrive Assessment Date Thrive assessed 03/26/25 11/04/25 13:37 Currently or been in a relationship where the following occur: No concerns reported Narrative Physical Exam General: Appearance normal, both eyes and all related structures stable. Patient reports visiting the carbon brusher assembler twice a year. Vision is okay, with some trouble in bright light but still able to drive. Nutritional Appearance: Well nourished, but reports significant muscle loss and weakness. Orientation/consciousness: Patient oriented x3 Limitations: Reports weakness and muscle loss, possibly due to arthritis and lack of physical activity. Head: Normal to inspection Neck: Normal visual inspection, but patient reports arthritis in the neck. Chest: Normal palpation of entire chest wall Respiratory: Normal respiratory effort Neurology: Patient oriented x3, brain function intact. Coding Level of Care Code Est Pt Level 4 (83040) Add On Problem Visit Only Diagnoses Hypertension I10 Assessment & Plan Assessment & Plan (1) Hypertension: Code(s): I10 - Essential (primary) hypertension Category: Medical Plan Plan - For management of arthritis, the patient will continue with as-needed Celebrex, approximately every two weeks, as this has been effective. - To address muscle weakness and sarcopenia, it was recommended that the patient purchase 5-pound dumbbells and begin a daily 10-minute regimen of light weight training, including squats, to improve muscle strength. - Regarding the patient's concerns about low testosterone, it was decided not to pursue laboratory testing or testosterone replacement therapy due to the potential cardiac risks associated with his history of heart disease. - The patient will continue his current medication regimen, which includes rosuvastatin, Brilinta, valsartan, metoprolol, levothyroxine, vitamin D, allopurinol, and aspirin. Discussion Notes I discussed with the patient that his symptoms of weakness, muscle wasting, and fatigue are likely multifactorial, stemming from age-related changes (sarcopenia) and progressive arthritis. We reviewed his concerns about low testosterone as a potential cause for his symptoms, including sexual dysfunction. I explained that while we could measure testosterone levels, I would not recommend testosterone replacement therapy due to the associated risks in patients with significant heart disease, which he has. The patient understood and agreed not to proceed with testing. To address the muscle weakness, I strongly recommended initiating a light exercise program involving 5-pound weights and squats for 10 minutes daily. I reassured him that despite these concerns, he is in good health for his age and that his cognitive function remains excellent. Patient Instructions - Continue taking Celebrex for severe arthritis pain, but only about once every two weeks as you have been doing. - To help with muscle weakness, please buy a set of 5-pound dumbbells. - Try to do about 10 minutes of light exercise each day using the weights for your arms and legs, and also do some squats. - We have decided against checking for low testosterone or starting hormone therapy because of the potential risks to your heart. - Continue taking all of your current medications as prescribed.
[2025-11-04 13:28] VITALS: BP 116/68; PULSE 52; RESP 18; TEMP 36.3; O2SAT 97; BMI 32.3
--- OUTSIDE RECORDS SUMMARY | 2025-11-04 17:26 | XMS_ITS | Clinical Summary ---
Author Organization [employer] [facility] Address [address] [address] Phone Care Team Providers Care Bow Maker Production Name Role Phone Boo Dangelo MD Primary [...] Patterson re now vs defer to local animal caretaker) Allergy to iodinated contrast 07/24/2019 Assessment & [...] to follow up with Dr. Gallardo at [facility] moving forward w/ a TTE in [...] bubble study in post procedure area of laborer powerhouse anticipating potential same day discharge -TTE and [...] wishes to continue following with his primary animal caretaker. Arteriosclerotic heart disease 08/03/2014 Overview (01/09/2015): Coronary [...] 08/10(Deferred: Patient Decision - , Ordered By: [id number]) Pneumococcal polysaccharide PPSV23 07/29/2014 Family History Medical [...] this topic Medical Devices Implanted Type Area Brand Planner Device Identifier Shelf Expiration Date Model / Serial / Lot Occluder Pfo Amplatzer 8fr 45deg 25mm 18mm - [id number] Implanted:Qty: 1 on 07/25/2019 by Lit Patterson MD at [facility] Structural Heart Closure Device A G A MEDICAL 09/18/2023 [id number] / / [id number] Procedures Procedure Name Priority Date/Time Associated Diagnosis Comments BASIC METABOLIC PANEL (BMP) Routine 07/25/2019 9:23 AM EDT HISTORICAL LAB Routine 08/14/2014 8:40 AM EDT from Last 3 Months or Most Recently Relevant to Health Maintenance Results * (ABNORMAL) Basic metabolic panel (07/25/2019 9:23 AM EDT) SODIUM 137 135 - 145 mmol/L [facility] POTASSIUM 4.4 3.4 - 5.0 mmol/L [facility] CHLORIDE 101 98 - 108 mmol/L [facility] CO2 22(L) 23 - 32 mmol/L [facility] BUN 25 8 - 25 mg/dL [facility] CREATININE 1.11 0.60 - 1.50 mg/dL [facility] GLUCOSE 164(H) 70 - 110 mg/dL [facility] CALCIUM 8.8 8.5 - 10.5 mg/dL [facility] EGFR 67 >59 mL/min/1. 73m2 [facility] Comment:If patient is black, multiply result by 1.159. Estimated glomerular filtration rate calculated using the CKD-EPI equation. ANION GAP 14 3 - 17 mmol/L [facility] Blood 07/25/2019 9:23 AM EDT 07/25/2019 9:34 AM EDT us Lit Patterson MD LAB BLOOD BKR ORDERABLES Final Result [address] [address] * (ABNORMAL) Historical Lab (08/14/2014 8:40 AM EDT) Calcium 8.9 8.5 - 10.5 mg/dl [facility] Magnesium 1.8 1.4 - 2.0 meq/L [facility] Phosphorus 2.3(Abnorm ally L) 2.6 - 4.5 mg/dl [facility] T1-TSH 3.39 0.40 - 5.00 uIU/mL [facility] 08/14/2014 8:40 AM EDT 08/14/2014 9:18 AM EDT Comment:BLOOD us Jordan Gil CNP LAB BLOOD ORDERABLES Final Result [address] [address] from Last 3 Months or Most Recently Relevant to Health Maintenance Insurance [facility] CIG PPO [facility] CIG PPO [facility] [place] [facility] [place] [facility] CIGNA PPO Member Subscriber Plan / Payer (Ef fective 2017-Present) Name:Shashank Gruber Relation to Subscriber:Spouse Name:BRITTNEY BLISS Date of :1954 (Home) [address]: [address] [place] [id number] Payer ID:[id number] (NAIC) Type:PPO Address: [address] [place] [id number] [facility] REPLACED BY [facility] [place] [address] [facility] Member Subscriber Plan / Payer (Ef fective 2018-Present) Name:Shashank Gruber Relation to Subscriber:Self Name:Shashank Gruber Payer ID:[id number] (NAIC) Type:PPO Address: [address] PPO [facility] CIGNA PPO [facility] REPLACED BY [facility] PPO [facility] BLNAE PPO Advance Directives For more information, please contact: [phone] (9AM - 5PM [facility], Sunday-Sunday) Documents on File Type Date Recorded Patient Parts Room Clerk Expl anation Advance Directive - Non Epic LMR 08/25/2014 12:00 AM Care Teams Bow Maker Production Relationship Specialty Start Date End Date Boo Dangelo MD [address] [place] [address] [address] [place] [id number] PCP - General 05/19/14 Additional Source Comments The information contained in this document represents components of the legal health record. It is not the complete legal health record.[facility]
--- OUTSIDE RECORDS SUMMARY | 2025-11-04 17:26 | XMS_ITS | Encounter Summary ---
Author Organization [facility] Address [address] [place] [address] Phone Care Team Providers Care Kettle Chipper Name Role Phone Boo Dangelo MD Primary Care Provider Encounter Details Date Type Department Care Team (Late st Contact Info) Description 07/18/2019 Procedure Pass [facility] Cardiac Stock Shipper [address], [address], [address] [place] [address] Social History Tobacco Use Types [...] on filedocumented in this encounter Care Teams Kettle Chipper Relationship Specialty Start Date End Date Boo Dangelo MD [address] [place] [address] PCP - General 05/19/14 documented as of this encounter Additional Source Comments The information contained in this document represents components of the legal health record. It is not the complete legal health record.[facility]
--- OUTSIDE RECORDS SUMMARY | 2025-11-04 17:26 | XMS_ITS | Encounter Summary ---
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 It is not the complete legal health record.[facility]
--- OUTSIDE RECORDS SUMMARY | 2025-11-04 17:26 | XMS_ITS | Clinical Summary ---
Author Organization [facility] Prior to 04/18/[address] [place] [address] Care Team Providers Care [place] Name Role Phone Unavailable Primary Care Provider [...]
--- OUTSIDE RECORDS SUMMARY | 2025-11-04 17:26 | XMS_ITS | Patient Health Record ---
Author Organization [facility] Address [address] [place] [id number] Care Team Providers Care Desk Clerk Name Role Phone KIRILLFILITERI Primary Care Provider Gentry Hughes Jr Unavailable Allergies Allergen (clinical drug ingredient) Drug/Non Drug Allergy documented on EMR Reaction Allergy Type Onset Date Status ivp dye (uncoded) Unknown Allergy Ac tive vancomycin Vancomycin Unknown Drug Allergy Activ e Reason For Referral No Information Medications Medication SIG (Take, Route, Frequency, Duration) Notes Start Date End Date Status Zetia 10 MG Tablet 1 tablet Orally Once a day; Duration: 30 day(s) Active Aspir-Low 81 MG Tablet Delayed Release 1 tablet Orally Once a day; Duration: 30 day(s) Active Latanoprost 0.005 % Solution INSTILL 1 DROP INTO BOTH EYES AT BEDTIME PLAN LIMITATIONS Ophthalmic; Duration: 85 Active Valsartan-hydroCHLOROthiazi de 160-12.5 MG Tablet Oral; Duration: 90 Active Brilinta 60 MG Tablet Oral; Duration: 90 Active Levothyroxine Sodium 137 MCG Tablet Oral; Duration: 90 Active Allopurinol 300 MG Tablet TAKE 1 TABLET BY MOUTH EVERY DAY Oral; Duration: 90 Active Toprol XL 100 MG Tablet Extended Release 1 tablet Orally Once a day; Duration: 30 day(s) Active Immunizations Vaccine Route Administration Date Status Comme nts Influenza Unknown 10/09/2023 Administered Social History Tobacco Use: Social History Observation Description Date Details (start date - stop date) Never Smoker NA - NA Social History Drugs/Alcohol: Social Info Question Answer Notes Alcohol Screen Did you have a drink containing alcohol in the past year? Yes How often did you have a drink containing alcohol in the past year? 4 or more times a week (4 points) How many drinks did you have on a typical day when you were drinking in the past year? 1 or 2 drinks (0 point) How often did you have 6 or more drinks on one occasion in the past year? 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 Problems Problem Type SNOMED Code ICD Code Onset Dates Problem Status W/U Status Risk Notes Problem Abnormal feces (779595114) Abnormal findings in stool (R19.5) Active confirmed Plan Of Treatment Future Test Test Name Order Date COLONOSCOPY 05/12/2024 Insurance Providers Payer Name Payer Address Payer Phone Subscriber Number Group Number Insured Name Patient Relationship to Insured Coverage Start Date Coverage End Date [facility] [id number] [place] [address] [phone] [id number] BALDOMERO YAO Self - patient is the insured Medical (General) History Medical History History ICD Code Bicuspid aortic valve status post replac ement, current bioprosthetic valve Ascending aortic aneurysm repair PFO pacemaker Glaucoma and cataract repairs Hearing deficit BPH amaurosis fugax Gout Surgical History Surgery Date(Month/Year) AVR and PFO surgery thyroidectomy appendectomy pacemaker
== END 2025-11-04 14:08 | disposition home or self-care (01) ==
LOC: HO.HMCH 13:16
PROVIDERS: PCP Internal Medicine; Visit Provider Internal Medicine
DX: I10 Essential (primary) hypertension (principal)

== ENCOUNTER → 2025-11-04 13:15 | Outpatient (BNVA) | payer MEDICARE, OTHER, SELFPAY | PROVIDERS: PCP Internal Medicine; Visit Provider Internal Medicine | DX: I10 Essential (primary) hypertension (principal); R53.1 Weakness; M19.90 Unspecified osteoarthritis, unspecified site; Z79.899 Other long term (current) drug therapy | CPT/HCPCS: 99212 ==